=== PATIENT | male | born 1965 | race African-American/Black ===

== ENCOUNTER 2018-09-25 21:05 | Inpatient (IN) | payer MEDICARE, MEDICAID ==
--- NOTE | 2018-09-26 00:34 | ER Document Report ---
ED Medical Screen (RME) - General Chief Complaint: Abscess Stated Complaint: BOIL IN GROIN AREA Time Seen by Provider: 09/26/18 00:15 TRAVEL OUTSIDE OF THE [place] IN LAST 30 DAYS: No - HPI Notes: 09/26/18 00:29 53 year old male with history of morbid obesity, HTN, IDDM, HLD to the ED with C/O progressively worsening abscess to his right inner thigh for the past two weeks. He states that he went and saw his PCM about 6 days ago and was given Bactroban and Augmentin. He has been faithful with these medicines. He states yesterday the area started to drain a foul smelling brown discharge with blood. Despite the drainage, he states the area has still increased in size. He admits to fevers, chills, fatigue, malaise. He does not think that the abscess goes onto his scrotum or into his perineal region. States it is starting to go up the buttock but is not involving the rectum. Sugars have been in the upper 300s. I have performed a medical screening exam on this patient. He will require lab work and possibly further I and D and possible imaging. Given his tachycardia and his description of a purulent infection, have ordered blood cultures and lactic acid. Past Medical History - General Information source: Patient, Relative - Social History Frequency of alcohol use: None Drug Abuse: None Lives with: Spouse/Significant other Family history: DM, Hypertension Physical Exam - Vital signs Vitals: Temp Pulse Resp BP Pulse Ox 98.0 F 121 H 16 154/91 H 96 09/25/18 21:54 09/25/18 21:54 09/25/18 21:54 09/25/18 21:54 09/25/18 21:54 Interpretation: Tachycardic - General Notes: noted foul smell from patient -- he acknowledges the smell himself and states that this smell started when the area began to drain. - Respiratory Respiratory status: No respiratory distress Chest status: Nontender Breath sounds: Normal Chest palpation: Normal - Cardiovascular Rhythm: Regular Heart sounds: Normal auscultation Murmur: No - Skin Notes: patient will not allow me to look at area of abscess in PIT, because he states it is best seen when he is laying down. Course - Vital Signs Vital signs: Temp Pulse Resp BP Pulse Ox 98.0 F 121 H 16 154/91 H 96 09/25/18 21:54 09/25/18 21:54 09/25/18 21:54 09/25/18 21:54 09/25/18 21:54
--- NOTE | 2018-09-26 00:50 | ER Document Report ---
ED Skin Rash/Insect Bite/Abscs - General Chief Complaint: Abscess Stated Complaint: BOIL IN GROIN AREA Time Seen by Provider: 09/26/18 00:15 Primary Care Provider: ABELARDO SHAH MD [Primary Care Provider] - Follow up as needed Notes: This is a pleasant 53-year-old -[place] male to the emergency department chief complaint of abscess. Patient has been treating it with oral antibiotics as prescribed by his primary care doctor for about 2 weeks now. Continues to get worse. Significant amount of discomfort and pain in the right groin area. States that the abscesses on the inguinal area on the right side proximal thigh and extends down around the scrotum and then down to the buttock area on the right. Fever at home. Tachycardia. Blood sugars have been elevated. Patient is a diabetic. TRAVEL OUTSIDE OF THE [place] IN LAST 30 DAYS: No - HPI Patient complains to provider of: Skin rash/lesion, Tender/swollen area Onset/Duration: Gradual, Constant, Worse Quality of pain: Throbbing Severity: Moderate Pain Level: 4 Skin Character: Abscess, Drainage, Erythema, Tenderness Skin Temperature: Warm Quality of rash: Painful Similar symptoms previously: Yes - Related Data Allergies/Adverse Reactions: No Known Allergies Allergy (Unverified 09/26/18 01:55) Past Medical History - General Information source: Patient, Relative - Social History Smoking Status: Never Smoker Frequency of alcohol use: None Drug Abuse: None Lives with: Spouse/Significant other Family History: Reviewed & Not Pertinent - Past Medical History Cardiac Medical History: Reports: Hx Hypertension Endocrine Medical History: Reports: Hx Diabetes Mellitus Type 2 Review of Systems - Review of Systems Notes: Constitutional: denies: Chills, Diaphoresis,+ Fever, +Malaise,+ Weakness EENT: denies: Eye discharge, Blurred vision, Tearing, Double vision, Nose congestion, Nose discharge, Throat swelling, Mouth pain Cardiovascular: denies: Palpitations, Heart racing, Orthopnea, Dyspnea, Chest pain Respiratory: denies: Cough, Hurts to breathe, Wheezing, Shortness of breath Gastrointestinal: denies: Abdominal pain, Diarrhea, Nausea, Vomiting, Black stools, bright red blood in stool Genitourinary: denies: Burning, Dysuria, Discharge, Frequency, Flank pain, Hematuria Musculoskeletal: denies: Joint pain, Joint swelling, Muscle pain, Muscle stiffness, back pain Hematologic/Lymphatic: denies: Anemia, Easy bleeding, Easy bruising, Blood clots Neurological/Psychological: denies: Confusion, Dementia, Depression, Loss of consciousness Skin: No lesions, no masses, +skin breakdown, +abscesses.+ Malodorous discharge right inguinal/upper thigh area from abscess. Physical Exam - Vital signs Vitals: Temp Pulse Resp BP Pulse Ox 98.0 F 121 H 16 154/91 H 96 09/25/18 21:54 09/25/18 21:54 09/25/18 21:54 09/25/18 21:54 09/25/18 21:54 Interpretation: Tachycardic. No: Febrile - General General appearance: Appears well, Alert - HEENT Head: Normocephalic, Atraumatic Eyes: Normal Pupils: PERRL - Respiratory Respiratory status: No respiratory distress Chest status: Nontender Breath sounds: Normal Chest palpation: Normal - Cardiovascular Rhythm: Tachycardia Heart sounds: Normal auscultation Murmur: No - Abdominal Inspection: Normal Distension: No distension Bowel sounds: Normal Tenderness: Nontender Organomegaly: No organomegaly - Back Back: Normal, Nontender - Extremities General upper extremity: Normal inspection, Nontender, Normal color, Normal ROM, Normal temperature General lower extremity: Normal inspection, Nontender, Normal color, Normal ROM, Normal temperature, Normal weight bearing. No: Albertina's sign - Neurological Neuro grossly intact: Yes Cognition: Normal Orientation: AAOx4 [place] Coma Scale Eye Opening: Spontaneous Patricia Coma Scale Verbal: Oriented [place] Coma Scale Motor: Obeys Commands [place] Coma Scale Total: 15 Speech: Normal Motor strength normal: LUE, RUE, LLE, RLE Sensory: Normal - Psychological Associated symptoms: Normal affect, Normal mood - Skin Skin Temperature: Warm Skin Moisture: Dry Skin Color: Other - There is a small draining abscess area in the right inguinal area. Malodorous. Warm and tender to the touch. Right anterior medial thigh area extending down towards the buttock region. Does not appear to involve the scrotal area at all. Course - Re-evaluation Re-evalutation: 09/26/18 01:14 This is a 53-year-old obese, diabetic male with worsening abscess and drainage with tachycardia. Will start on IV antibiotics. Patient more likely will need to be admitted. More likely will require surgical consult. Will get CT scan at this time to better delineate where the abscess goes and whether or not there is extensive soft tissue involvement. Ordering vancomycin, Zosyn pain medication at this time. 09/26/18 04:17 Laboratory 09/26/18 09/26/18 09/26/18 01:21 01:25 01:25 WBC 10.6 H RBC 5.00 Hgb 12.7 L Hct 39.3 MCV 79 L MCH 25.3 L MCHC 32.2 RDW 14.8 H Plt Count 287 Total Counted 100 Seg Neutrophils % Not Reportable Seg Neuts % (Manual) 67 Band Neutrophils % 4 Lymphocytes % Not Reportable Lymphocytes % (Manual) 19 Monocytes % Not Reportable Monocytes % (Manual) 9 Eosinophils % Not Reportable Eosinophils % (Manual) 1 Basophils % Not Reportable Basophils % (Manual) 0 Absolute Neutrophils Not Reportable Abs Neuts (Manual) 7.5 Absolute Lymphocytes Not Reportable Abs Lymphs (Manual) 2.0 Absolute Monocytes Not Reportable Abs Monocytes (Manual) 1.0 Absolute Eosinophils Not Reportable Absolute Eos (Manual) 0.1 Absolute Basophils Not Reportable Abs Basophils (Manual) 0.0 Platelet Comment ADEQUATE RBC Morph Comment NORMO-CYTIC/CHROMIC Sodium Cancelled Potassium Cancelled Chloride Cancelled Carbon Dioxide Cancelled Anion Gap Cancelled BUN Cancelled Creatinine Cancelled Est GFR ( Amer) Cancelled Est GFR (Non-Af Amer) Cancelled Glucose Cancelled POC Glucose 334 H Lactic Acid Calcium Cancelled Total Bilirubin Cancelled Direct Bilirubin Cancelled Neonat Total Bilirubin Cancelled Neonat Direct Bilirubin Cancelled Neonat Indirect Bili Cancelled AST Cancelled ALT Cancelled Alkaline Phosphatase Cancelled Total Protein Cancelled Albumin Cancelled 09/26/18 09/26/18 01:25 01:55 WBC RBC Hgb Hct MCV MCH MCHC RDW Plt Count Total Counted Seg Neutrophils % Seg Neuts % (Manual) Band Neutrophils % Lymphocytes % Lymphocytes % (Manual) Monocytes % Monocytes % (Manual) Eosinophils % Eosinophils % (Manual) Basophils % Basophils % (Manual) Absolute Neutrophils Abs Neuts (Manual) Absolute Lymphocytes Abs Lymphs (Manual) Absolute Monocytes Abs Monocytes (Manual) Absolute Eosinophils Absolute Eos (Manual) Absolute Basophils Abs Basophils (Manual) Platelet Comment RBC Morph Comment Sodium 138.9 Potassium 5.0 Chloride 103 Carbon Dioxide 17 L Anion Gap 19 BUN 14 Creatinine 0.77 Est GFR ( Amer) > 60 Est GFR (Non-Af Amer) > 60 Glucose 381 H POC Glucose Lactic Acid 1.5 Calcium 9.4 Total Bilirubin 0.6 Direct Bilirubin 0.5 H Neonat Total Bilirubin Not Reportable Neonat Direct Bilirubin Not Reportable Neonat Indirect Bili Not Reportable AST 25 ALT 27 Alkaline Phosphatase 162 H Total Protein 7.8 Albumin 3.9 Consulted hospitalist for admission for cellulitis with surgical consult. He recommends a consult surgeon first. I have consulted with Dr. Castro with general surgery. He will see patient. Patient is receiving antibiotics, fluid and insulin at this time 09/26/18 05:24 At this time patient is turning the corner. We will continue to check the blood sugar. Dr. Castro will see shortly and likely admit. 09/26/18 05:45 09/26/18 05:45 Blood sugars coming down after insulin. Receiving fluids. Patient looking better. Anticipate admit shortly. - Vital Signs Vital signs: Temp Pulse Resp BP Pulse Ox 98.0 F 121 H 15 106/70 95 09/25/18 21:54 09/25/18 21:54 09/26/18 04:01 09/26/18 04:01 09/26/18 04:01 - Laboratory Result Diagrams: 09/26/18 01:25 09/26/18 01:55 Laboratory results interpreted by me: 09/26/18 09/26/18 09/26/18 01:21 01:25 01:55 WBC 10.6 H Hgb 12.7 L MCV 79 L MCH 25.3 L RDW 14.8 H Carbon Dioxide 17 L Glucose 381 H POC Glucose 334 H Direct Bilirubin 0.5 H Alkaline Phosphatase 162 H 09/26/18 04:40 WBC Hgb MCV MCH RDW Carbon Dioxide Glucose POC Glucose 382 H Direct Bilirubin Alkaline Phosphatase Discharge - Discharge Clinical Impression: Abscess of groin, right, Cellulitis of right leg Condition: Good Disposition: ADMITTED INPATIENT Admitting Provider: Surgicalist - [facility] Unit Admitted: Surgical Floor Referrals: ABELARDO SHAH MD [Primary Care Provider] - Follow up as needed
[2018-09-26] MEDS ORDERED: VANCOMYCIN HCL INJ 1000 MG VIAL IV ONE (01:06)
[2018-09-26] MEDS ORDERED: PIPERACILLIN/TAZOBACTAM 3.375 GM VIAL IV ONE (01:07)
[2018-09-26] MEDS ORDERED: KETOROLAC TROMETHAMINE INJ/PF 30 MG/1 ML SDV IV ONE (01:11)
[2018-09-26] MEDS ORDERED: ONDANSETRON 4 MG TAB.RAPDIS PO ONE (01:11)
[2018-09-26] MEDS ORDERED: OXYCODONE-ACETAMINOPHEN 5-325 MG TABLET PO ONE (01:11)
[2018-09-26 01:42] LABS: HEMATOCRIT 39.3 % (37.9-51.0); HEMOGLOBIN 12.7 g/dL (13.5-17.0); MEAN CORPUSCULAR HEMOGLOBIN 25.3 pg (27.0-33.4); MEAN CORPUSCULAR HGB CONC 32.2 g/dL (32.0-36.0); MEAN CORPUSCULAR VOLUME 79 fl (80-97); PLATELET COUNT 287 10^3/uL (150-450); RED CELL DISTRIBUTION WIDTH 14.8 % (11.5-14.0); WHITE BLOOD COUNT 10.6 10^3/uL (4.0-10.5)
[2018-09-26 02:06] LABS: BAND NEUTROPHILS % (MANUAL) 4 % (3-5); BASOPHILS % (MANUAL) 0 % (0-2); EOSINOPHILS % (MANUAL) 1 % (0-6); LYMPHOCYTES % (MANUAL) 19 % (13-45); MONOCYTES % (MANUAL) 9 % (3-13); PLATELET COMMENT ADEQUATE; RBC MORPHOLOGY COMMENT NORMO-CYTIC/CHROMIC; SEGMENTED NEUTROPHILS % (MAN) 67 % (42-78); TOTAL CELLS COUNTED 100
[2018-09-26 02:19] LABS: ALANINE AMINOTRANSFERASE 27 U/L (21-72); ALBUMIN 3.9 g/dL (3.5-5.0); ALKALINE PHOSPHATASE 162 U/L (38-126); ANION GAP 19 (5-19); ASPARTATE AMINO TRANSFERASE 25 U/L (17-59); BILIRUBIN,DIRECT 0.5 mg/dL (0.0-0.4); BILIRUBIN,TOTAL 0.6 mg/dL (0.2-1.3); BLOOD UREA NITROGEN 14 mg/dL (7-20); CALCIUM 9.4 mg/dL (8.4-10.2); CARBON DIOXIDE 17 mmol/L (22-30); CHLORIDE 103 mmol/L (98-107); GLUCOSE 381 mg/dL (75-110); SODIUM 138.9 mmol/L (137-145); TOTAL PROTEIN 7.8 g/dL (6.3-8.2)
--- NOTE | 2018-09-26 03:12 | RADIOLOGY REPORT (SQ) ---
CLINICAL HISTORY: Abscess right groin COMPARISON: None. TECHNIQUE: CT PELVIS WITH IV CONTRAST on 09/26/2018 1:05 AM CDT This exam was performed according to our departmental dose-optimization program, which includes automated exposure control, adjustment of the mA and/or kV according to patient size and/or use of iterative reconstruction technique. FINDINGS: There is no bowel obstruction. Urinary bladder is unremarkable. There is no free fluid. There is inflammation within the inferior medial right buttocks with subcutaneous air. There is no focal fluid collection. Skeleton: There are no acute osseous findings. No suspicious bony lesions. IMPRESSION: Cellulitis in the inferior right buttocks near the scrotum with subcutaneous air within the soft tissues.
[2018-09-26] MEDS ORDERED: INSULIN REG, HUMAN 100 UNIT/ML 3 ML VIAL (PYX) IV ONE ×2 (04:15→05:50)
[2018-09-26] MEDS ORDERED: NORMAL SALINE 1000 ML 1,000 ML IV ONE ×2 (04:15→05:51)
[2018-09-26] MEDS ORDERED: DEXTROSE 50%-WATER 25 GM/50 ML DISP.SYRIN IV PRN ×4 (06:01→06:07)
[2018-09-26] MEDS ORDERED: DEXTROSE 40% GEL 15 GM TUBE PO PRN ×4 (06:01→06:07)
[2018-09-26] MEDS ORDERED: GLUCAGON,HUMAN RECOMB 1 MG INJ SUBCUT PRN (06:01)
--- NOTE | 2018-09-26 06:01 | PDOC H&P ---
History of Present Illness Admission Date/PCP: 09/26/18 05:35 ABELARDO SHAH MD Patient complains of: Draining boil in the right upper inner thigh History of Present Illness: CAROLANN TOLLIVER is a 53 year old male Past Medical History Cardiac Medical History: Reports: Myocardial Infarction - Several years ago, Hypertension Pulmonary Medical History: Reports: None Endocrine Medical History: Reports: Diabetes Mellitus Type 2 Musculoskeltal Medical History: Reports: Arthritis Past Surgical History Past Surgical History: Reports: Tonsillectomy Social History Lives with: Spouse/Significant other Smoking Status: Never Smoker Frequency of Alcohol Use: Rare Hx Recreational Drug Use: No Family History Family History: Reviewed & Not Pertinent Parental Family History Reviewed: Yes - Alcoholism and drug abuse Children Family History Reviewed: Yes Sibling(s) Family History Reviewed.: Yes Medication/Allergy Allergies/Adverse Reactions: No Known Allergies Allergy (Unverified 09/26/18 01:55) Review of Systems All systems: reviewed and no additional remarkable complaints except as stated Constitutional: PRESENT: weight loss - About 30 pound weight loss since changing his diabetes medications Integumentary: PRESENT: as per HPI Physical Exam Vital Signs: Temp Pulse Resp BP Pulse Ox 98.0 F 121 H 15 106/70 95 09/25/18 21:54 09/25/18 21:54 09/26/18 04:01 09/26/18 04:01 09/26/18 04:01 Intake & Output 09/24/18 09/25/18 09/26/18 06:59 06:59 06:59 Intake Total 1000 Balance 1000 Weight 141.5 kg General appearance: PRESENT: no acute distress, cooperative, morbidly obese Eye exam: PRESENT: conjunctiva pink Neck exam: PRESENT: other - Supple with no masses and no tenderness Respiratory exam: PRESENT: clear to auscultation onofre Cardiovascular exam: PRESENT: RRR GI/Abdominal exam: PRESENT: other - Soft, nondistended, nontender to palpation. Gentrourinary exam: PRESENT: other - No scrotal erythema nor induration. Bilateral testicles are descended with no masses and no tenderness Extremities exam: PRESENT: other - Right upper inner thigh with about hand breath region of erythema, tenderness and induration with central fluctuance with a central opening draining seropurulent foul-smelling fluid. Neurological exam: PRESENT: alert, awake Psychiatric exam: PRESENT: appropriate affect Results Laboratory Results: 09/26/18 01:25 09/26/18 01:55 09/26/18 09/26/18 09/26/18 01:25 01:25 01:25 WBC 10.6 H RBC 5.00 Hgb 12.7 L Hct 39.3 MCV 79 L MCH 25.3 L MCHC 32.2 RDW 14.8 H Plt Count 287 Seg Neutrophils % Not Reportable Lymphocytes % Not Reportable Monocytes % Not Reportable Eosinophils % Not Reportable Basophils % Not Reportable Absolute Neutrophils Not Reportable Absolute Lymphocytes Not Reportable Absolute Monocytes Not Reportable Absolute Eosinophils Not Reportable Absolute Basophils Not Reportable Sodium Cancelled Potassium Cancelled Chloride Cancelled Carbon Dioxide Cancelled Anion Gap Cancelled BUN Cancelled Creatinine Cancelled Est GFR ( Amer) Cancelled Est GFR (Non-Af Amer) Cancelled Glucose Cancelled Lactic Acid 1.5 Calcium Cancelled Total Bilirubin Cancelled AST Cancelled ALT Cancelled Alkaline Phosphatase Cancelled Total Protein Cancelled Albumin Cancelled 09/26/18 01:55 WBC RBC Hgb Hct MCV MCH MCHC RDW Plt Count Seg Neutrophils % Lymphocytes % Monocytes % Eosinophils % Basophils % Absolute Neutrophils Absolute Lymphocytes Absolute Monocytes Absolute Eosinophils Absolute Basophils Sodium 138.9 Potassium 5.0 Chloride 103 Carbon Dioxide 17 L Anion Gap 19 BUN 14 Creatinine 0.77 Est GFR ( Amer) > 60 Est GFR (Non-Af Amer) > 60 Glucose 381 H Lactic Acid Calcium 9.4 Total Bilirubin 0.6 AST 25 ALT 27 Alkaline Phosphatase 162 H Total Protein 7.8 Albumin 3.9 09/26/18 01:55 Troponin I < 0.012 Impressions: Pelvis CT 09/26/18 01:05 IMPRESSION: Cellulitis in the inferior right buttocks near the scrotum with subcutaneous air within the soft tissues. Assessment & Plan - Diagnosis (1) Abscess of groin, right Is this a current diagnosis for this admission?: Yes Plan: Will start on antibiotics, IV fluid resuscitation, IV insulin. When he has been sufficiently resuscitated we will plan to take him to the operating room for a right inner upper thigh abscess debridement. I have explained to the patient the risk and benefits of the surgery including risk of poor wound healing, infection, bleeding, recurrence, cardiopulmonary risks. Patient understands and agrees to proceed.
[2018-09-26] MEDS ORDERED: GLUCAGON,HUMAN RECOMB 1 MG INJ IM PRN (06:07)
[2018-09-26] MEDS ORDERED: PIPERACILLIN SODIUM/TAZOBACTAM 3.375 GM in NORMAL SALINE 100 ML IV ONE (06:30)
[2018-09-26 07:45] LABS: ANION GAP 15 (5-19); BLOOD UREA NITROGEN 15 mg/dL (7-20); CALCIUM 8.9 mg/dL (8.4-10.2); CARBON DIOXIDE 19 mmol/L (22-30); CHLORIDE 106 mmol/L (98-107); GLUCOSE 182 mg/dL (75-110); POTASSIUM 4.3 mmol/L (3.6-5.0); SODIUM 139.7 mmol/L (137-145)
[2018-09-26] MEDS ORDERED: FENTANYL CITRATE INJ/PF 100 MCG/2 ML AMPUL ONE (07:50)
[2018-09-26] MEDS ORDERED: MIDAZOLAM 2 MG/2 ML INJ ONE (07:50)
[2018-09-26] MEDS ORDERED: ONDANSETRON HCL INJ/PF 4 MG/2 ML SDV ONE (07:50)
[2018-09-26] MEDS ORDERED: DEXAMETHASONE SOD PHOSPHATE INJ 4 MG/1 ML VIAL ONE (07:50)
[2018-09-26] MEDS ORDERED: PROPOFOL INJ 200 MG/20 ML VIAL IV ONE (07:51)
[2018-09-26] MEDS ORDERED: KETAMINE HCL INJ 500 MG/10 ML VIAL ONE (07:57)
[2018-09-26] MEDS ORDERED: BUPIVACAINE HCL 0.25 % INJ/PF (2.5 MG/1 ML) 30 ML VIAL ONE (07:59)
[2018-09-26] MEDS ORDERED: LIDOCAINE 0.5% INJ-PF (5 MG/ML) 50 ML SDV ONE (07:59)
[2018-09-26] MEDS: PIPERACILLIN SODIUM/TAZOBACTAM 3.375 GM in NORMAL SALINE 100 ML IV SCH ×3 (08:51→22:32)
[2018-09-26] MEDS ORDERED: FENTANYL CITRATE INJ/PF 100 MCG/2 ML AMPUL IV PRN ×3 (09:18)
[2018-09-26] MEDS ORDERED: PROMETHAZINE HCL INJ 25 MG/1 ML VIAL IV PRN ×2 (09:18)
[2018-09-26] MEDS ORDERED: MEPERIDINE HCL/PF INJ 25 MG/1 ML DISP.SYRIN IV PRN (09:18)
[2018-09-26] MEDS ORDERED: MORPHINE SULFATE 10 MG/ML INJ IV PRN (09:18)
[2018-09-26] MEDS ORDERED: ONDANSETRON HCL INJ/PF 4 MG/2 ML SDV IV PRN (09:18)
[2018-09-26] MEDS ORDERED: DIPHENHYDRAMINE HCL 50 MG/ML VIAL IV PRN (09:18)
--- NOTE | 2018-09-26 09:57 | Operative Report ---
Operative Report DATE OF SURGERY: 09/26/18 PREOPERATIVE DIAGNOSIS: Diabetic right proximal thigh abscess POSTOPERATIVE DIAGNOSIS: Large proximal right upper thigh abscess and diabetic with necrotic subcutaneous tissue OPERATION: 1. Debridement of skin, subcutaneous tissue and superficial fascia of the right proximal groin. 2. Counterincisions x2 with [place] loop drain placement. SURGEON: SUSANA TORRES ANESTHESIA: GA TISSUE REMOVED OR ALTERED: Skin, subcutaneous tissue COMPLICATIONS: None ESTIMATED BLOOD LOSS: 30 cc INTRAOPERATIVE FINDINGS: See below PROCEDURE: Patient moved from the preop holding area to the main operating room where general anesthesia was induced. Legs were leg, and the right groin and proximal thigh prepped and draped sterile fashion. Surgical plan and surgical timeout were conducted. Using a #10 blade, a large elliptical excision of skin was then removed from the right proximal thigh approximately 4 x 8 cm. We immediately got into woody, thickened, subcutaneous tissue. Multiple, extensive loculations were broken up in a circumferential fashion extending up to the inguinal ligament cephalad, caudad for several centimeters, medially for approximately 18 cm and laterally for approximately 15 cm. 2 counterincisions were made one in the proximal lateral thigh and one in the medial thigh. Large [place] drains were placed in a loop fashion and tied in knots. We now spent approximately 15 minutes excisionally debriding chunks of subcutaneous tissue with electrocautery. Approximately 8 g of tissue were removed. This was performed using a ferrous [place] pickups, and and electrocautery set at medium heat strength. Wound was irrigated out multiple times with saline. Superficial bleeders were cauterized as encountered. The greater saphenous vein was not encountered during the excisional debridement. Wound packed with to complete moist Kerlix gauzes and dry dressings applied. Patient tolerated the procedure well, extubated, taken recovery in stable condition.
--- NOTE | 2018-09-26 10:01 | PDOC PROGRESS REPORT ---
Subjective Progress Note for:: 09/26/18 Subjective:: Patient right groin and proximal thigh Reason For Visit: RIGHT THIGH ABSCESS Physical Exam Vital Signs: Temp Pulse Resp BP Pulse Ox 97.6 F 93 19 120/68 96 09/26/18 08:28 09/26/18 08:28 09/26/18 08:28 09/26/18 08:22 09/26/18 08:28 Intake & Output 09/25/18 09/26/18 09/27/18 06:59 06:59 06:59 Intake Total 1000 Balance 1000 Weight 141.5 kg General appearance: PRESENT: mild distress Musculoskeletal exam: PRESENT: other - Actively draining purulent material proximal thigh, surrounding erythema induration and tenderness. Results Laboratory Results: 09/26/18 01:25 09/26/18 07:00 09/26/18 09/26/18 09/26/18 01:25 01:25 01:25 WBC 10.6 H RBC 5.00 Hgb 12.7 L Hct 39.3 MCV 79 L MCH 25.3 L MCHC 32.2 RDW 14.8 H Plt Count 287 Seg Neutrophils % Not Reportable Lymphocytes % Not Reportable Monocytes % Not Reportable Eosinophils % Not Reportable Basophils % Not Reportable Absolute Neutrophils Not Reportable Absolute Lymphocytes Not Reportable Absolute Monocytes Not Reportable Absolute Eosinophils Not Reportable Absolute Basophils Not Reportable Sodium Cancelled Potassium Cancelled Chloride Cancelled Carbon Dioxide Cancelled Anion Gap Cancelled BUN Cancelled Creatinine Cancelled Est GFR ( Amer) Cancelled Est GFR (Non-Af Amer) Cancelled Glucose Cancelled Lactic Acid 1.5 Calcium Cancelled Total Bilirubin Cancelled AST Cancelled ALT Cancelled Alkaline Phosphatase Cancelled Total Protein Cancelled Albumin Cancelled 09/26/18 09/26/18 01:55 07:00 WBC RBC Hgb Hct MCV MCH MCHC RDW Plt Count Seg Neutrophils % Lymphocytes % Monocytes % Eosinophils % Basophils % Absolute Neutrophils Absolute Lymphocytes Absolute Monocytes Absolute Eosinophils Absolute Basophils Sodium 138.9 139.7 Potassium 5.0 4.3 Chloride 103 106 Carbon Dioxide 17 L 19 L Anion Gap 19 15 BUN 14 15 Creatinine 0.77 0.66 Est GFR ( Amer) > 60 > 60 Est GFR (Non-Af Amer) > 60 > 60 Glucose 381 H 182 H Lactic Acid Calcium 9.4 8.9 Total Bilirubin 0.6 AST 25 ALT 27 Alkaline Phosphatase 162 H Total Protein 7.8 Albumin 3.9 09/26/18 01:55 Troponin I < 0.012 Impressions: Pelvis CT 09/26/18 01:05 IMPRESSION: Cellulitis in the inferior right buttocks near the scrotum with subcutaneous air within the soft tissues. Assessment & Plan - Diagnosis (1) Abscess of groin, right Is this a current diagnosis for this admission?: Yes Plan: Impression: Right proximal thigh abscess below the right groin, and diabetic with hyperglycemia. Recommendations: 1. Agree with plans for excisional debridement, possible counterincision right proximal thigh this morning, under general anesthesia. The technical aspects of the planned procedure, as well as expected outcome were discussed with patient and significant other. 2. He expresses understanding and agrees to proceed.
[2018-09-26] MEDS: ENOXAPARIN SODIUM INJ 40 MG/0.4 ML DISP.SYRIN SUBCUT SCH (11:13)
[2018-09-26] MEDS ORDERED: PIPERACILLIN SODIUM/TAZOBACTAM 3.375 GM in NORMAL SALINE 100 ML IV SCH (12:00)
[2018-09-26] MEDS: KETOROLAC TROMETHAMINE INJ/PF 30 MG/1 ML SDV IV PRN ×2 (12:09→22:31)
[2018-09-26] MEDS ORDERED: SUCCINYLCHOLINE CHLORIDE INJ 200 MG/10 ML VIAL ONE (14:13)
[2018-09-26] MEDS: INSULIN REG, HUMAN 100 UNIT/ML 3 ML VIAL (PYX) SUBCUT SCH ×3 (14:51→22:32)
--- NOTE | 2018-09-26 22:38 | EKG REPORT ---
SEVERITY:- BORDERLINE ECG - SINUS RHYTHM BORDERLINE ST ELEVATION, INFERIOR LEADS : Confirmed by: Hedy Arizmendi MD 26-Sep-2018 22:38:29
[2018-09-27] MEDS: PIPERACILLIN SODIUM/TAZOBACTAM 3.375 GM in NORMAL SALINE 100 ML IV SCH ×4 (02:43→22:04)
[2018-09-27] MEDS: KETOROLAC TROMETHAMINE INJ/PF 30 MG/1 ML SDV IV PRN ×3 (07:42→22:07)
[2018-09-27] MEDS: INSULIN REG, HUMAN 100 UNIT/ML 3 ML VIAL (PYX) SUBCUT SCH ×4 (07:43→22:03)
[2018-09-27] MEDS: BENAZEPRIL HCL 20 MG TABLET PO SCH (09:39)
[2018-09-27] MEDS: GABAPENTIN 300 MG CAPSULE PO SCH (09:45)
[2018-09-27] MEDS: ENOXAPARIN SODIUM INJ 40 MG/0.4 ML DISP.SYRIN SUBCUT SCH (09:45)
[2018-09-27] MEDS: HUM INSULIN NPH/REG INSULIN HM 100 UNIT/1 ML 3 ML SUBCUT SCH ×2 (09:45→18:25)
--- NOTE | 2018-09-27 10:43 | PDOC PROGRESS REPORT ---
Subjective Progress Note for:: 09/27/18 Reason For Visit: RIGHT THIGH ABSCESS Physical Exam Vital Signs: Temp Pulse Resp BP Pulse Ox 99.0 F 89 18 116/73 93 09/27/18 07:49 09/27/18 07:49 09/27/18 07:49 09/27/18 07:49 09/27/18 07:49 Intake & Output 09/26/18 09/27/18 09/28/18 06:59 06:59 06:59 Intake Total 1000 3090 Output Total 1125 Balance 1000 1965 Weight 141.5 kg 150.5 kg General appearance: PRESENT: no acute distress Head exam: PRESENT: normocephalic Eye exam: PRESENT: EOMI Ear exam: PRESENT: normal external ear exam Mouth exam: PRESENT: moist Neck exam: PRESENT: full ROM Respiratory exam: PRESENT: clear to auscultation onofre Cardiovascular exam: PRESENT: RRR Pulses: PRESENT: +2 pedal pulses bilateral Vascular exam: PRESENT: normal capillary refill GI/Abdominal exam: PRESENT: soft Rectal exam: PRESENT: deferred Extremities exam: PRESENT: full ROM, other - Right groin wound has been packed with a saline soaked Kerlix gauze. Gauze has been removed and the Cecilia drain is in place the Alyson of the wound look clean but there is still some surface necrosis Musculoskeletal exam: PRESENT: full ROM Neurological exam: PRESENT: alert, awake, oriented to person Skin exam: PRESENT: dry Results Laboratory Results: 09/26/18 01:25 09/26/18 07:00 09/26/18 01:55 Troponin I < 0.012 Impressions: Pelvis CT 09/26/18 01:05 IMPRESSION: Cellulitis in the inferior right buttocks near the scrotum with subcutaneous air within the soft tissues. Assessment & Plan - Plan Summary Plan Summary: Impression is right groin abscess status post incision and drainage packing has been changed We will continue dressing changes for the time being
--- NOTE | 2018-09-27 17:26 | PDOC CONSULTATION ---
Consultation Consult Date: 09/27/18 Attending physician:: SUSANA TORRES Provider Consulted: INDIRA PRIDE Consult reason:: Diabetes regiment in setting of abscess History of Present Illness Admission Date/PCP: 09/26/18 05:35 ABELARDO SHAH MD Patient complains of: Right thigh draining wound History of Present Illness: CAROLANN TOLLIVER is a 53 year old man with difficult to control type II, insulin- dependent diabetes. He was admitted to the orthopedic service with a right upper inner thigh abscess which has now been drained. He is on multiple medications for diabetes and the hospitalist has been consulted for assistance with diabetes management given this complication, the abscess. Patient and I went over his diabetes medication regimen extensively, in detail. He is currently feeling better, after I&D of the abscess. He is now eating okay. He tells me that his blood glucose is usually high, around 300, every morning. He tells me that typically he ranges from about 1 50-300 over the course of a day. He takes his medications as prescribed. He states he has lost difficult amount of weight, going from 452 about 300 pounds over the past year. His hope is to lose a sufficient amount of weight to improve his diabetes and hypertension and health overall. Past Medical History Cardiac Medical History: Reports: Myocardial Infarction - Several years ago, Hypertension Pulmonary Medical History: Reports: None Endocrine Medical History: Reports: Diabetes Mellitus Type 2 Endocrine History Note: morbid obesity Musculoskeltal Medical History: Reports: Arthritis Psychiatric Medical History: Reports: Depression Traumatic Medical History: Denies: Traumatic Brain Injury Hematology: Denies: Bleeding Tendencies Infectious Medical History: Reports: Methicillin-Resistant Staph Aureus Past Surgical History Past Surgical History: Reports: Tonsillectomy, Other - I&D of right thigh abscess Social History Information Source: Patient, [facility] Records Lives with: Spouse/Significant other Smoking Status: Never Smoker Frequency of Alcohol Use: Rare Hx Recreational Drug Use: No Hx Prescription Drug Abuse: No - Advance Directive Resuscitation Status: Full Code Family History Family History: Reviewed & Not Pertinent Parental Family History Reviewed: No Children Family History Reviewed: No Sibling(s) Family History Reviewed.: No Medication/Allergy Home Medications: Amlodipine Besylate [Norvasc 10 mg Tablet] 10 mg PO DAILY 09/26/18 Benazepril HCl [Lotensin 20 mg Tablet] 20 mg PO DAILY 09/26/18 Dapagliflozin Propanediol [Farxiga] 10 mg PO QAM 09/26/18 Exenatide Microspheres [Bydureon Pen] 2 mg SQ MO@1000 09/26/18 Gabapentin [Neurontin 300 mg Capsule] 300 mg PO DAILY 09/26/18 Insulin Aspart Prot/Insuln Asp [Novolog Mix 70-30 Flexpen Syrn] 0 units SQ .SLIDING SCALE 09/26/18 Insulin Degludec [Tresiba Flextouch U-100] 50 units SQ BIDACBS 09/26/18 Pioglitazone HCl [Actos] 30 mg PO DAILY 09/26/18 Allergies/Adverse Reactions: No Known Allergies Allergy (Unverified 09/26/18 01:55) Review of Systems Constitutional: ABSENT: chills, fever(s) Eyes: ABSENT: visual disturbances Ears: ABSENT: hearing changes Nose, Mouth, and Throat: ABSENT: mouth pain, sore throat Cardiovascular: ABSENT: edema, orthropnea Respiratory: ABSENT: dyspnea Gastrointestinal: ABSENT: abdominal pain, constipation, nausea, vomiting Genitourinary: ABSENT: difficulty urinating, hematuria Musculoskeletal: ABSENT: deformity, muscle weakness Integumentary: PRESENT: lesions, wounds Neurological: PRESENT: numbness. ABSENT: abnormal gait, frequent falls Psychiatric: PRESENT: depression. ABSENT: anxiety Physical Exam Vital Signs: Temp Pulse Resp BP Pulse Ox 98.2 F 89 18 143/89 H 97 09/27/18 15:07 09/27/18 15:07 09/27/18 15:07 09/27/18 15:07 09/27/18 15:07 Intake & Output 09/26/18 09/27/18 09/28/18 06:59 06:59 06:59 Intake Total 1000 3090 200 Output Total 1125 Balance 1000 1965 200 Weight 141.5 kg 150.5 kg General appearance: PRESENT: no acute distress, cooperative, morbidly obese Head exam: PRESENT: atraumatic, normocephalic Eye exam: PRESENT: EOMI. ABSENT: conjunctival injection, scleral icterus Mouth exam: PRESENT: moist, neck supple, tongue midline Neck exam: ABSENT: lymphadenopathy, tracheostomy Respiratory exam: PRESENT: clear to auscultation onofre, unlabored. ABSENT: rales, rhonchi, wheezes Cardiovascular exam: PRESENT: RRR Pulses: PRESENT: normal radial pulses Vascular exam: PRESENT: normal capillary refill GI/Abdominal exam: PRESENT: normal bowel sounds, soft. ABSENT: distended, firm, guarding Rectal exam: PRESENT: deferred Gentrourinary exam: ABSENT: indwelling catheter Extremities exam: ABSENT: pedal edema, tenderness Musculoskeletal exam: PRESENT: normal inspection. ABSENT: deformity Neurological exam: PRESENT: alert, awake, oriented to person, oriented to place, oriented to situation, CN II-XII grossly intact Psychiatric exam: PRESENT: appropriate affect. ABSENT: anxious Skin exam: PRESENT: dry, normal color, other - Right upper inner thigh with postoperative dressing in place, wet with serosanguineous fluid, no significant surrounding skin changes Results Laboratory Results: 09/26/18 01:25 09/26/18 07:00 09/26/18 01:55 Troponin I < 0.012 Impressions: Pelvis CT 09/26/18 01:05 IMPRESSION: Cellulitis in the inferior right buttocks near the scrotum with subcutaneous air within the soft tissues. Assessment and Plan - Diagnosis (1) Abscess of right thigh Is this a current diagnosis for this admission?: Yes Plan: Patient has been to the OR with orthopedic surgery. They are following his wound. First postop dressing change was today. (2) Type 2 diabetes, uncontrolled, with neuropathy Is this a current diagnosis for this admission?: Yes Plan: The patient's blood glucose has not been well controlled. He is taking 70/30 insulin twice a day, varying doses. He also takes Actos and farxiga. He takes another weekly insulin injection, he does not know the name. I have started him on 70/30 insulin twice daily, half his regular dose. I will continue the sliding scale insulin before meals and at bedtime with regular insulin as started by the web application dev specialist. Will monitor closely and make changes as indicated. I started patient's gabapentin at 300 mg daily. Continue diabetic and cardiac diet. (3) Obesity Qualifiers: Obesity type: due to excess calories Is this a current diagnosis for this admission?: Yes Plan: Last year patient weighed 450 pounds. He is about 300 pounds now. He is actively attempting to lose weight to improve his health. (4) Hypertension Is this a current diagnosis for this admission?: Yes Plan: Patient's blood pressure was normal this morning without having taken any of his home meds. He is on amlodipine 10 mg daily and benazepril 20 mg daily. I started the benazepril with holding parameters systolic blood pressure less than 130. - Time Time Spent with patient: 35 or more minutes Medications reviewed and adjusted accordingly: Yes - Inpatient Certification Based on my medical assessment, after consideration of the patient's comorbidities, presenting symptoms, or acuity I expect that the services needed warrant INPATIENT care.: Yes I certify that my determination is in accordance with my understanding of Medicare's requirements for reasonable and necessary INPATIENT services [42 CFR 412.3e].: Yes Medical Necessity: Significant Comorbidiites Make Outpatient Treatment Too Risky, Need Close Monitoring Due to Risk of Patient Decompensation
[2018-09-27] MEDS ORDERED: HUM INSULIN NPH/REG INSULIN HM 100 UNIT/1 ML 3 ML SUBCUT ONE (18:00)
[2018-09-28] MEDS: PIPERACILLIN SODIUM/TAZOBACTAM 3.375 GM in NORMAL SALINE 100 ML IV SCH ×2 (03:02→09:32)
[2018-09-28] MEDS: KETOROLAC TROMETHAMINE INJ/PF 30 MG/1 ML SDV IV PRN (04:08)
[2018-09-28] MEDS ORDERED: HUM INSULIN NPH/REG INSULIN HM 100 UNIT/1 ML 3 ML SUBCUT SCH (08:00)
[2018-09-28 08:18] VITALS: BP 117/80
[2018-09-28] MEDS: INSULIN REG, HUMAN 100 UNIT/ML 3 ML VIAL (PYX) SUBCUT SCH (08:24)
[2018-09-28 08:58] LABS: ANION GAP 9 (5-19); BLOOD UREA NITROGEN 14 mg/dL (7-20); CALCIUM 8.3 mg/dL (8.4-10.2); CARBON DIOXIDE 24 mmol/L (22-30); CHLORIDE 103 mmol/L (98-107); GLUCOSE 379 mg/dL (75-110); POTASSIUM 4.3 mmol/L (3.6-5.0); SODIUM 135.6 mmol/L (137-145)
[2018-09-28] MEDS: GABAPENTIN 300 MG CAPSULE PO SCH (09:32)
[2018-09-28] MEDS: ENOXAPARIN SODIUM INJ 40 MG/0.4 ML DISP.SYRIN SUBCUT SCH (09:32)
[2018-09-28] MEDS: BENAZEPRIL HCL 20 MG TABLET PO SCH (09:33)
--- NOTE | 2018-09-28 09:38 | PDOC PROGRESS REPORT ---
Subjective Progress Note for:: 09/28/18 Subjective:: No complaints of pain Reason For Visit: RIGHT THIGH ABSCESS Physical Exam Vital Signs: Temp Pulse Resp BP Pulse Ox 97.7 F 84 18 117/80 98 09/28/18 07:58 09/28/18 07:58 09/28/18 07:58 09/28/18 07:58 09/28/18 07:58 Intake & Output 09/27/18 09/28/18 09/29/18 06:59 06:59 06:59 Intake Total 3090 1875 Output Total 1125 Balance 1965 1875 Weight 150.5 kg 150 kg General appearance: PRESENT: no acute distress Eye exam: PRESENT: EOMI Mouth exam: PRESENT: moist Neck exam: PRESENT: full ROM Respiratory exam: PRESENT: clear to auscultation onofre Cardiovascular exam: PRESENT: RRR Pulses: PRESENT: normal radial pulses, normal femoral pulses GI/Abdominal exam: PRESENT: soft Rectal exam: PRESENT: deferred Extremities exam: PRESENT: other - Patient's right thigh abscess and examined th e packing has been removed the bed of the wound has good granulation tissue without areas of necrosis the Cecilia drains are in place Musculoskeletal exam: PRESENT: full ROM Neurological exam: PRESENT: alert, awake, oriented to person, oriented to place Psychiatric exam: PRESENT: appropriate affect Skin exam: PRESENT: dry Results Laboratory Results: 09/26/18 01:25 09/28/18 08:29 09/28/18 08:29 Sodium 135.6 L Potassium 4.3 Chloride 103 Carbon Dioxide 24 Anion Gap 9 BUN 14 Creatinine 0.66 Est GFR ( Amer) > 60 Est GFR (Non-Af Amer) > 60 Glucose 379 H Calcium 8.3 L 09/26/18 01:55 Troponin I < 0.012 Impressions: Pelvis CT 09/26/18 01:05 IMPRESSION: Cellulitis in the inferior right buttocks near the scrotum with subcutaneous air within the soft tissues. Assessment & Plan - Diagnosis (1) Abscess of groin, right Is this a current diagnosis for this admission?: Yes - Time Time Spent with patient: 25-34 minutes Anticipated discharge: Home Within: within 24 hours Disposition: Home - Plan Summary Plan Summary: His wound is clean at this point with good granulation tissue the is at bedside she understands how to do the packing he can be discharged from surgical standpoint
--- NOTE | 2018-09-28 09:49 | PDOC DISCHARGE SUMMARY ---
General - Admit/Disc Date/PCP Admission Date/Primary Care Provider: 09/26/18 05:35 ABELARDO SHAH MD Discharge Date: 09/28/18 - Discharge Diagnosis (1) Abscess of groin, right Is this a current diagnosis for this admission?: Yes - Additional Information Resuscitation Status: Full Code Discharge Diet: As Tolerated Discharge Activity: Activity As Tolerated Home Medications: Amlodipine Besylate [Norvasc 10 mg Tablet] 10 mg PO DAILY 09/26/18 Benazepril HCl [Lotensin 20 mg Tablet] 20 mg PO DAILY 09/26/18 Dapagliflozin Propanediol [Farxiga] 10 mg PO QAM 09/26/18 Exenatide Microspheres [Bydureon Pen] 2 mg SQ MO@1000 09/26/18 Gabapentin [Neurontin 300 mg Capsule] 300 mg PO DAILY 09/26/18 Insulin Aspart Prot/Insuln Asp [Novolog Mix 70-30 Flexpen Syrn] 0 units SQ .SLIDING SCALE 09/26/18 Insulin Degludec [Tresiba Flextouch U-100] 50 units SQ BIDACBS 09/26/18 Pioglitazone HCl [Actos] 30 mg PO DAILY 09/26/18 History of Present Illness History of Present Illness: CAROLANN TOLLIVER is a 53 year old male Hospital Course Hospital Course: 53-year-old diabetic male who was admitted to the hospital on 08/16/2018 for pain in the right groin he was noted to have a large abscess in his right groin. He was taken to the operating room where he went underwent a surgical incision and drainage of his right groin abscess with placement of Cecilia drains and wound packing. The following 2 days he was maintained on IV antibiotics and dressing changes to the right groin over the course of the 2-day hospital stay his pain in the right groin had subsided and the wound began granulating with clean granulation base At this time he is afebrile stable vital signs he is tolerating a regular diet the wound is being packed with a saline soaked gauze sponge and the family has been given instructions for that Has an indwelling Cecilia drain in the abscess itself and that will be managed as an outpatient He is stable for discharge home he is been instructed to use a hand-held shower to irrigate the wound at least twice daily and continue the dressing changes as taught to the . Physical Exam Vital Signs: Temp Pulse Resp BP Pulse Ox 97.7 F 84 18 117/80 98 09/28/18 07:58 09/28/18 07:58 09/28/18 07:58 09/28/18 07:58 09/28/18 07:58 Intake & Output 09/27/18 09/28/18 09/29/18 06:59 06:59 06:59 Intake Total 3090 1875 Output Total 1125 Balance 1965 1874 Weight 150.5 kg 150 kg General appearance: PRESENT: no acute distress Head exam: PRESENT: normocephalic Eye exam: PRESENT: EOMI Ear exam: PRESENT: TM's normal bilaterally Mouth exam: PRESENT: moist Neck exam: PRESENT: full ROM Respiratory exam: PRESENT: clear to auscultation onofre Cardiovascular exam: PRESENT: RRR Pulses: PRESENT: normal radial pulses, normal femoral pulses GI/Abdominal exam: PRESENT: soft Rectal exam: PRESENT: deferred Extremities exam: PRESENT: other - Right groin abscess, with good granulation at the base cecilia drain in place. Psychiatric exam: PRESENT: appropriate affect Skin exam: PRESENT: dry Results Laboratory Results: 09/26/18 01:25 09/28/18 08:29 09/28/18 08:29 Sodium 135.6 L Potassium 4.3 Chloride 103 Carbon Dioxide 24 Anion Gap 9 BUN 14 Creatinine 0.66 Est GFR ( Amer) > 60 Est GFR (Non-Af Amer) > 60 Glucose 379 H Calcium 8.3 L 09/26/18 01:55 Troponin I < 0.012 Impressions: Pelvis CT 09/26/18 01:05 IMPRESSION: Cellulitis in the inferior right buttocks near the scrotum with subcutaneous air within the soft tissues. Qualifiers - * PATIENT BEING DISCHARGED WITH ANY OF THE FOLLOWING DIAGNOSIS: No Acute Heart Failure - Is this a Heart Failure Patient?: No
--- NOTE | 2018-09-28 14:45 | PDOC PROGRESS REPORT ---
Subjective Progress Note for:: 09/28/18 Subjective:: Patient feels very well today. His blood sugar has been mostly under 300. No chest pain or difficulty breathing. He is eating and drinking well. No nausea or vomiting. BPs have been normal off of his home meds. Dressing changed today by surgeon. Reason For Visit: RIGHT THIGH ABSCESS Physical Exam Vital Signs: Temp Pulse Resp BP Pulse Ox 97.7 F 84 18 117/80 98 09/28/18 11:00 09/28/18 11:00 09/28/18 11:00 09/28/18 07:58 09/28/18 11:00 Intake & Output 09/27/18 09/28/18 09/29/18 06:59 06:59 06:59 Intake Total 3090 1875 Output Total 1125 Balance 1965 1874 Weight 150.5 kg 150 kg General appearance: PRESENT: no acute distress, obese Head exam: PRESENT: atraumatic, normocephalic Eye exam: ABSENT: conjunctival injection, scleral icterus Ear exam: PRESENT: normal external ear exam Mouth exam: PRESENT: moist, neck supple, tongue midline Neck exam: ABSENT: tracheostomy Respiratory exam: PRESENT: clear to auscultation onofre, unlabored. ABSENT: rhonchi, wheezes Cardiovascular exam: PRESENT: RRR. ABSENT: systolic murmur Pulses: PRESENT: normal radial pulses GI/Abdominal exam: PRESENT: normal bowel sounds, soft. ABSENT: distended, tenderness Rectal exam: PRESENT: deferred Gentrourinary exam: ABSENT: indwelling catheter Extremities exam: ABSENT: pedal edema Neurological exam: PRESENT: alert, awake, oriented to person, oriented to place, oriented to situation, CN II-XII grossly intact Psychiatric exam: PRESENT: appropriate affect. ABSENT: anxious Skin exam: PRESENT: dry, warm, other - right upper inner thigh with clean post op dressing after abscess I and D Results Laboratory Results: 09/26/18 01:25 09/28/18 08:29 09/28/18 08:29 Sodium 135.6 L Potassium 4.3 Chloride 103 Carbon Dioxide 24 Anion Gap 9 BUN 14 Creatinine 0.66 Est GFR ( Amer) > 60 Est GFR (Non-Af Amer) > 60 Glucose 379 H Calcium 8.3 L 09/26/18 01:55 Troponin I < 0.012 Impressions: Pelvis CT 09/26/18 01:05 IMPRESSION: Cellulitis in the inferior right buttocks near the scrotum with subcutaneous air within the soft tissues. Assessment and Plan - Diagnosis (1) Abscess of right thigh Is this a current diagnosis for this admission?: Yes Plan: doing well from this perspective, the surgeon is primary service and will DC him today with wound care and followup plan in place. (2) Type 2 diabetes, uncontrolled, with neuropathy Is this a current diagnosis for this admission?: Yes Plan: Pt will be DCed with the plan to restart all of his home meds for diabetes. His glucose ran a bit high here but he was not on all of his home meds, including orals and an injectable that we do not carry. He and spouse feel comfortable restarting all his home DM meds at this time. WIll cont gabapentin at home. He knows to return to medical care with concerning symptoms. (3) Obesity Qualifiers: Obesity type: due to excess calories Is this a current diagnosis for this admission?: Yes Plan: he will cont to work on his weight loss plan as documented in yesterdays note. (4) Hypertension Is this a current diagnosis for this admission?: Yes Plan: BP has been in normal range off of home meds. i have asked him to hold the amlodipine and the benazepril until he sees his doctor in the next 1-2 days. he will likely need to retart a low dose ENID for renal protection. - Time Time Spent with patient: 15-24 minutes Anticipated discharge: Home - Inpatient Certification Post Hospital Care: Other - DC today per surgeon
== END 2018-09-28 11:33 | disposition home or self-care (01) | DRG 572 ==
LOC: ER 21:05 → EH 09-26 05:35 → 3W 09-26 08:12
PROVIDERS: ADMIT Surgery; ATTEND Surgery
PROC: 0JBL0ZZ Excision of Right Upper Leg Subcutaneous Tissue and Fascia, Open Approach (ICD-10-PCS; principal; 2018-09-26 09:00)
DX: L02.415 Cutaneous abscess of right lower limb (principal); I10 Essential (primary) hypertension; E66.01 Morbid (severe) obesity due to excess calories; E11.40 Type 2 diabetes mellitus with diabetic neuropathy, unspecified; F32.9 Major depressive disorder, single episode, unspecified; I25.2 Old myocardial infarction; Z79.4 Long term (current) use of insulin; Z79.899 Other long term (current) drug therapy; Z86.14 Personal history of Methicillin resistant Staphylococcus aureus infection
CPT/HCPCS: 36415; 400; 72193; 80048; 80053; 82962; 83605; 84484; 85025; 87040; 87070; 87075; 87077; 87205; 93005; 93010; 96365; 96366; 96367; 96375; 99285; J0330; J1100; J1650; J1815; J1885; J2250; J2405; J2543; J2704; J3010; J3370; J3490; J7030; J7050; S0119

== ENCOUNTER 2019-12-25 15:24 | Inpatient (IN) | payer MEDICARE ==
[~2019-12-25 15:24] MED LIST: EPINEPHRINE INJ 1 MG/10 ML DISP.SYRIN ONE; SODIUM BICARBONATE 8.4% INJ 50 MEQ/50 ML DISP.SYRIN ONE
[2019-12-25] MEDS ORDERED: DEXAMETHASONE SOD PHOS INJ 10 MG/1 ML VIAL IV ONE (15:40)
--- NOTE | 2019-12-25 15:41 | ER Document Report ---
ED Respiratory Problem - General Stated Complaint: DIFFICULTY BREATHING Time Seen by Provider: 12/25/19 15:36 TRAVEL OUTSIDE OF THE [place] IN LAST 30 DAYS: No - HPI Patient complains to provider of: Short of breath Onset: Last week Duration: Worse/persistent Notes: Patient is a 54-year-old male with a past medical history of diabetes who presents with shortness of breath. Patient states he tested positive for COVID at [place] 1 week ago. He was sent home with a medication but he is unsure of what it is. Patient states his shortness of breath is worsening. He denies any headaches or nausea. He states he had diarrhea last week but this has res olved. He denies any abdominal pain. EMS arrived at his house because he became very weak with ambulating. He arrived with a nonrebreather mask. Nonrebreather mask was removed and patient's O2 saturations dropped to 68%. Further history is limited as patient is being placed on BiPAP. - Related Data Allergies/Adverse Reactions: No Known Allergies Allergy (Unverified 09/26/18 01:55) Past Medical History - General Information source: Patient - Social History Smoking Status: Unknown if Ever Smoked Family History: Reviewed & Not Pertinent - Past Medical History Cardiac Medical History: Reports: Hx Heart Attack - Several years ago, Hx Hypertension Endocrine Medical History: Reports: Hx Diabetes Mellitus Type 2 Renal/ Medical History: Denies: Hx Peritoneal Dialysis Musculoskeletal Medical History: Reports Hx Arthritis Psychiatric Medical History: Reports: Hx Depression Traumatic Medical History: Denies: Hx Traumatic Brain Injury Infectious Medical History: Reports: Hx MRSA Past Surgical History: Reports: Hx Tonsillectomy, Other - I&D of right thigh abscess Review of Systems - Review of Systems Notes: CONSTITUTIONAL: No fever, fatigue or weight loss. SKIN: No rash. HENT: No congestion, ear pain, or sore throat. EYES: No recent vision problems or eye pain. ENDOCRINE: No polyuria or polydipsia. CARDIOVASCULAR: No chest pain or edema. RESPIRATORY: Positive for cough and shortness of breath. GASTROINTESTINAL: No abdominal pain, nausea, vomiting, bloody stools or diarrhea. MUSCULOSKELETAL: No joint pain or swelling. LYMPHATIC: No swollen glands. NEUROLOGIC: No seizures. No headache, focal weakness or sensory changes. HEMATOLOGIC: No unusual bruising or bleeding. PSYCHIATRIC: No depression or anxiety. Physical Exam - Vital signs Vitals: Temp Resp BP Pulse Ox 98.8 F 53 H 125/85 81 L 12/25/19 15:24 12/25/19 15:24 12/25/19 15:24 12/25/19 15:24 - Notes Notes: VITAL SIGNS: Hypoxic on room air, tachycardic, tachypneic. GENERAL: No acute distress, non-toxic appearance. HEAD: Normal with no signs of head trauma. EYES: Conjunctiva normal, no discharge. EARS: Hearing grossly intact. NOSE: Normal. NECK: Normal range of motion, no tenderness, supple, no lymphadenopathy, No adenopathy, no JVD. CHEST: Tachypneic. No accessory muscle use. CARDIAC: Regular rate and rhythm. VASCULAR: No Edema. ABDOMEN: Normal and soft with no tenderness GENITOURINARY: Normal, No tenderness LYMPATHTIC: No lymphadenopathy noted. MUSCULOSKELETAL: Good range of motion of all major joints. Extremities without clubbing, cyanosis or edema. NEUROLOGICAL: Alert and oriented x 3. No focal sensory or strength deficits. Speech normal. Follows commands appropriately. PSYCHIATRIC: Normal Affect, judgement and mood. SKIN: Normal appearance with no rashes or lesions. Course - Re-evaluation Re-evalutation: 12/25/19 18:42 Patient was placed on BiPAP. He is tachypneic but O2 saturations are in the low 90s. Patient does not appear to be in any respiratory distress. His lab work is consistent with his previous COVID diagnosis as he has an elevated ferritin and other inflammatory markers. Patient's x-ray is concerning for bilateral pneumonia. He will be treated with Rocephin and azithromycin to cover other pathogens. I have also given him dexamethasone. he was not given sepsis fluids due to the COVID to avoid fluid overload with his lung findings.. Patient was given 1 L of fluids. His glucose is elevated in the 500s. I ordered him subcutaneous insulin. Patient will be admitted to the hospitalist service. Discussed with the ICU attending who stated that if his pH on his ABG is normal, that he may go to the floor. Patient began to have O2 saturations in the high 80s. He was switched to CPAP and O2 saturations are now in the mid 90s. 12/26/19 00:00 - Vital Signs Vital signs: Temp Pulse Resp BP Pulse Ox 98.8 F 110 H 40 H 123/82 94 12/25/19 15:51 12/25/19 23:48 12/25/19 21:05 12/25/19 17:00 12/25/19 21:32 - Laboratory Result Diagrams: 12/25/19 15:34 12/25/19 15:34 Laboratory results interpreted by me: 12/25/19 12/25/19 12/25/19 15:34 15:34 15:34 RBC 5.71 H MCV 79 L MCH 25.5 L RDW 14.5 H Lymph % (Auto) 9.2 L Seg Neutrophils % 81.5 H D-Dimer Carbonic Acid ABG pCO2 ABG pO2 ABG Total CO2 ABG O2 Saturation Potassium 5.2 H BUN 26 H Glucose 524 H* Lactic Acid 3.0 H Calcium 8.3 L Ferritin 1170.00 H Direct Bilirubin 0.5 H Lactate Dehydrogenase 567 H C-Reactive Protein 255.0 H 12/25/19 12/25/19 15:34 15:34 RBC MCV MCH RDW Lymph % (Auto) Seg Neutrophils % D-Dimer 0.78 H Carbonic Acid 0.98 L ABG pCO2 32.7 L ABG pO2 58.2 L ABG Total CO2 22.4 L ABG O2 Saturation 91.3 L Potassium BUN Glucose Lactic Acid Calcium Ferritin Direct Bilirubin Lactate Dehydrogenase C-Reactive Protein - Diagnostic Test Radiology reviewed: Image reviewed, Reports reviewed - EKG Interpretation by Me EKG shows normal: Sinus rhythm Rate: Tachycardia Rhythm: NSR When compared to previous EKG there are: No significant change Additional EKG results interpreted by me: 12/25/19 18:44 EKG interpreted by me. Sinus tachycardia at a rate of 118. QTc 415. No acute ST changes. No significant change from previous EKG. Critical Care Note - Critical Care Note Total time excluding time spent on procedures (mins): 30 Comments: Upon my evaluation, this patient had a high probability of eminent or life- threatening deterioration due to acute respiratory failure, which required my direct attention, intervention, and personal management. I have personally provided 30 minutes of critical care time. Time includes review of laboratory data, radiology results, discussion with consultants, and monitoring for potential decompensation. Discharge - Discharge Clinical Impression: Acute respiratory failure due to COVID-19, Hyperglycemia Disposition: ADMITTED INPATIENT Admitting Provider: Cinthia (Hospitalist) Unit Admitted: [facility]
[2019-12-25 16:04] LABS: ABSOLUTE LYMPHOCYTES (AUTO) 0.5 10^3/uL (0.5-4.7); ABSOLUTE MONOCYTES (AUTO) 0.5 10^3/uL (0.1-1.4); ABSOLUTE NEUT (AUTO) 4.7 10^3/uL (1.7-8.2); BASOPHILS % (AUTO) 0.3 % (0-2); HEMATOCRIT 45.1 % (37.9-51.0); HEMOGLOBIN 14.5 g/dL (13.5-17.0); LYMPHOCYTES % (AUTO) 9.2 % (13-45); MEAN CORPUSCULAR HEMOGLOBIN 25.5 pg (27.0-33.4); MEAN CORPUSCULAR HGB CONC 32.2 g/dL (32.0-36.0); MEAN CORPUSCULAR VOLUME 79 fl (80-97); PLATELET COUNT 202 10^3/uL (150-450); RED BLOOD COUNT 5.71 10^6/uL (4.35-5.55); RED CELL DISTRIBUTION WIDTH 14.5 % (11.5-14.0); SEGMENTED NEUTROPHILS % (AUTO) 81.5 % (42-78); TOTAL CELLS COUNTED % (AUTO) 100 %; WHITE BLOOD COUNT 5.7 10^3/uL (4.0-10.5)
[2019-12-25 16:13] LABS: INTERNATIONAL RATION (INR) 1.01; PROTHROMBIN TIME 13.5 SEC (11.4-15.4)
[2019-12-25 16:26] LABS: ALBUMIN 3.7 g/dL (3.5-5.0); ALKALINE PHOSPHATASE 77 U/L (38-126); ANION GAP 17 (5-19); ASPARTATE AMINO TRANSFERASE 52 U/L (17-59); BILIRUBIN,DIRECT 0.5 mg/dL (0.0-0.4); BILIRUBIN,TOTAL 0.7 mg/dL (0.2-1.3); BLOOD UREA NITROGEN 26 mg/dL (7-20); CALCIUM 8.3 mg/dL (8.4-10.2); CARBON DIOXIDE 24 mmol/L (22-30); CHLORIDE 99 mmol/L (98-107); POTASSIUM 5.2 mmol/L (3.6-5.0); TOTAL PROTEIN 7.1 g/dL (6.3-8.2)
[2019-12-25] MEDS ORDERED: LORAZEPAM INJ 2 MG/1 ML VIAL IV ONE (16:29)
[2019-12-25] MEDS ORDERED: NORMAL SALINE 1000 ML 1,000 ML IV ONE (16:29)
[2019-12-25 16:41] LABS: GLUCOSE 524 mg/dL (75-110)
--- NOTE | 2019-12-25 16:49 | RADIOLOGY REPORT (SQ) ---
EXAM DESCRIPTION: CHEST SINGLE VIEW IMAGES COMPLETED DATE/TIME: 12/25/2019 4:31 pm REASON FOR STUDY: shortness of breath COMPARISON: None. EXAM PARAMETERS: NUMBER OF VIEWS: One view. TECHNIQUE: Single frontal radiographic view of the chest acquired. RADIATION DOSE: NA LIMITATIONS: None. FINDINGS: LUNGS AND PLEURA: Low lung volumes. Patchy opacification in the lung bases. MEDIASTINUM AND HILAR STRUCTURES: No masses. Contour normal. HEART AND VASCULAR STRUCTURES: Heart normal in size. Normal vasculature. BONES: No acute findings. HARDWARE: None in the chest. OTHER: No other significant finding. IMPRESSION: Low lung volumes. Cannot exclude bibasilar pneumonia. TECHNICAL DOCUMENTATION: JOB ID: [id number] 2010 [employer]- All Rights Reserved Reading location - IP/workstation name: [email or web address]
[2019-12-25] MEDS ORDERED: CEFTRIAXONE 2 GM/D5W RTU 2 GM/50 ML RTUPB IV ONE (16:50)
[2019-12-25] MEDS ORDERED: AZITHROMYCIN INJ 500 MG VIAL IV ONE (16:58)
[2019-12-25] MEDS ORDERED: INSULIN REG, HUMAN 100 UNIT/ML 3 ML VIAL (PYX) SUBCUT ONE (17:06)
[2019-12-25 18:08] LABS: ARTERIAL BLOOD FIO2 70%; ARTERIAL BLOOD H2CO3 0.98 mmol/L (1.05-1.35); ARTERIAL BLOOD HCO3 21.4 mmol/L (20-24); ARTERIAL BLOOD O2 SATURATION 91.3 % (94-98); ARTERIAL BLOOD PCO2 32.7 mmHg (35-45); ARTERIAL BLOOD PH 7.43 (7.35-7.45); ARTERIAL BLOOD PO2 58.2 mmHg (80-100); ARTERIAL BLOOD TOTAL CO2 22.4 mmol/L (23-27)
[2019-12-25] MEDS ORDERED: ALBUTEROL SULFATE HFA (90 MCG/PUFF) 8 GM MDI IH PRN (20:09)
[2019-12-25] MEDS ORDERED: GUAIFENESIN SYRP 200 MG/10 ML UDC PO PRN (20:09)
[2019-12-25] MEDS ORDERED: GLUCAGON,HUMAN RECOMB 1 MG INJ IM PRN (20:26)
[2019-12-25] MEDS ORDERED: DEXTROSE 40% GEL 15 GM TUBE PO PRN ×2 (20:26)
[2019-12-25] MEDS ORDERED: DEXTROSE 50%-WATER 25 GM/50 ML DISP.SYRIN IV PRN ×2 (20:26)
[2019-12-25] MEDS ORDERED: LORAZEPAM INJ 2 MG/1 ML VIAL IV PRN (20:33)
--- NOTE | 2019-12-25 20:59 | PDOC H&P ---
History of Present Illness Admission Date/PCP: 12/25/19 19:37 Patient complains of: Increasing shortness of breath and fever with progressive weakness over the last several days History of Present Illness: CAROLANN TOLLIVER is a 54 year old male with a history of a distant myocardial infarction, hypertension and type 2 diabetes mellitus who presents with increasing weakness, shortness of breath and a nonproductive cough with fever and nausea over the last 1 to 2 days. He was tested at [facility] and was positive for Covid-19 but his illness has progressed and so he presented to the emergency department. He was markedly hypoxic in the field (pulse ox 65% by EMS on room air). As well as tachycardic and tachypneic. Chest x-ray reveals possible bilateral pneumonia. He does not have an elevated white blood cell count however his ferritin and LDH are markedly elevated. C-reactive protein is also elevated at 255. D-dimer is positive but less than 1.0. The patient will be admitted to the hospitalist service. He will get antibiotic therapy as well as the normal supplements for COVID patient's. He will receive dexamethasone IV and will use metered-dose inhaler as opposed to nebulizer therapy at this time. He is currently on CPAP and we will taper this as tolerated. Past Medical History Cardiac Medical History: Reports: Myocardial Infarction - Several years ago, Hypertension Endocrine Medical History: Reports: Diabetes Mellitus Type 2 Musculoskeltal Medical History: Reports: Arthritis Psychiatric Medical History: Reports: Depression Traumatic Medical History: Denies: Traumatic Brain Injury Hematology: Denies: Bleeding Tendencies Infectious Medical History: Reports: Methicillin-Resistant Staph Aureus Past Surgical History Past Surgical History: Reports: Tonsillectomy, Other - I&D of right thigh a bscess Social History Information Source: Patient, [facility] Records Lives with: Spouse/Significant other Smoking Status: Former Smoker Electronic Cigarette use?: No Frequency of Alcohol Use: Rare Hx Recreational Drug Use: No Hx Prescription Drug Abuse: No - Advance Directive Resuscitation Status: Full Code Surrogate healthcare decision maker:: Patient's Family History Family History: Reviewed & Not Pertinent, Other Parental Family History Reviewed: Yes Children Family History Reviewed: Yes Sibling(s) Family History Reviewed.: Yes Medication/Allergy Home Medications: Pioglitazone HCl [Actos 30 mg Tablet] 30 mg PO DAILY 12/25/19 Semaglutide [Ozempic] 1 mg SQ .WEEKLY 12/25/19 Allergies/Adverse Reactions: No Known Allergies Allergy (Unverified 09/26/18 01:55) Review of Systems All systems: reviewed and no additional remarkable complaints except as stated Constitutional: PRESENT: fever(s) Respiratory: PRESENT: cough, dyspnea Gastrointestinal: PRESENT: diarrhea, nausea Neurological: PRESENT: numbness, other - Loss of taste Physical Exam Vital Signs: Temp Pulse Resp BP Pulse Ox 98.8 F 44 H 123/82 90 L 12/25/19 15:51 12/25/19 17:01 12/25/19 17:00 12/25/19 17:01 Intake & Output 12/24/19 12/25/19 12/26/19 06:59 06:59 06:59 Intake Total 1050 Balance 1050 Weight 147.871 kg General appearance: PRESENT: cooperative, morbidly obese, well-developed, well-nourished, other - Well-developed morbidly obese 54-year-old patient currently on BiPAP in moderate to severe distress. Head exam: PRESENT: atraumatic, normocephalic Eye exam: PRESENT: EOMI, PERRLA. ABSENT: conjunctiva pink, nystagmus, scleral icterus Ear exam: PRESENT: normal external ear exam. ABSENT: bleeding, drainage Mouth exam: PRESENT: other - BiPAP mask in place Neck exam: ABSENT: carotid bruit, JVD, lymphadenopathy, tracheostomy Respiratory exam: PRESENT: rales - Bilateral bases, symmetrical, tachypnea, other - Limited inspiratory phase due to tachypnea. ABSENT: wheezes Cardiovascular exam: PRESENT: +S1, +S2, systolic murmur - 2/6, tachycardia. ABSENT: bradycardia, diastolic murmur, irregular rhythm Pulses: PRESENT: normal radial pulses, normal dorsalis pedis pul GI/Abdominal exam: PRESENT: normal bowel sounds, soft, other - Protuberant abdomen. ABSENT: guarding, tenderness Rectal exam: PRESENT: deferred Gentrourinary exam: ABSENT: indwelling catheter Extremities exam: PRESENT: pedal edema. ABSENT: clubbing Musculoskeletal exam: PRESENT: normal inspection. ABSENT: deformity, dislocation Neurological exam: PRESENT: alert, awake, oriented to person, oriented to place, oriented to time, oriented to situation, CN II-XII grossly intact, motor sensory deficit - Patient reports some numbness in his lower extremities. Patient also reports loss of taste. Sense of smell has returned.. ABSENT: altered Psychiatric exam: PRESENT: appropriate affect - Affect reflects his current clinical state. ABSENT: agitated, anxious Focused psych exam: ABSENT: delusional, paranoid, restlessness Skin exam: PRESENT: dry, normal color, warm. ABSENT: rash Results Laboratory Results: 12/25/19 15:34 12/25/19 15:34 12/25/19 12/25/19 12/25/19 15:34 15:34 15:34 WBC 5.7 RBC 5.71 H Hgb 14.5 Hct 45.1 MCV 79 L MCH 25.5 L MCHC 32.2 RDW 14.5 H Plt Count 202 Seg Neutrophils % 81.5 H Carbonic Acid HCO3/H2CO3 Ratio ABG pH ABG pCO2 ABG pO2 ABG HCO3 ABG O2 Saturation ABG Base Excess FiO2 Sodium 139.6 Potassium 5.2 H Chloride 99 Carbon Dioxide 24 Anion Gap 17 BUN 26 H Creatinine 1.20 Est GFR ( Amer) > 60 Glucose 524 H* Lactic Acid 3.0 H Calcium 8.3 L Ferritin 1170.00 H Total Bilirubin 0.7 AST 52 Alkaline Phosphatase 77 C-Reactive Protein 255.0 H Total Protein 7.1 Albumin 3.7 12/25/19 12/25/19 15:34 18:40 WBC RBC Hgb Hct MCV MCH MCHC RDW Plt Count Seg Neutrophils % Carbonic Acid 0.98 L HCO3/H2CO3 Ratio 21:1 ABG pH 7.43 ABG pCO2 32.7 L ABG pO2 58.2 L ABG HCO3 21.4 ABG O2 Saturation 91.3 L ABG Base Excess -2.0 FiO2 70% Sodium Potassium Chloride Carbon Dioxide Anion Gap BUN Creatinine Est GFR ( Amer) Glucose Lactic Acid 1.5 Calcium Ferritin Total Bilirubin AST Alkaline Phosphatase C-Reactive Protein Total Protein Albumin 12/25/19 15:34 Troponin I < 0.012 Impressions: Chest X-Ray 12/25/19 15:37 IMPRESSION: Low lung volumes. Cannot exclude bibasilar pneumonia. Assessment and Plan - Diagnosis (1) Acute respiratory failure with hypoxemia Is this a current diagnosis for this admission?: Yes Plan: Secondary to pneumonia. Currently on CPAP with oxygen supplementation. With ongoing treatment of his COVID pneumonia we should be able to taper him from BiPAP to oxygen supplementation and eventually back to room air. (2) Pneumonia due to COVID-19 virus Is this a current diagnosis for this admission?: Yes Plan: Azithromycin and ceftriaxone. Dexamethasone as well as vitamin D, melatonin, vitamin C and zinc. (3) Hyperglycemia due to type 2 diabetes mellitus Qualifiers: Diabetes mellitus snf insulin use: with intermodal dispatcher use Qualified Code(s): E11.65 - Type 2 diabetes mellitus with hyperglycemia; Z79.4 - moth exterminator (current) use of insulin Is this a current diagnosis for this admission?: Yes Plan: The patient is markedly hyperglycemic. He does not know his medication regimen as yet. It is in his phone and the phone was left in the ambulance. Only Actos and Ozempic are on his medication list. He is on a sliding scale. I did continue his Actos. He will be on a diabetic diet. I started Lantus dosing but will need more information to administer the right dose that the patient usually takes. He has required several one-time doses tonight. Hopefully will get his medication regimen from the patient or through pharmacy medication reconciliation and we can get his glucose down and steady. (4) Tachypnea Is this a current diagnosis for this admission?: Yes Plan: Secondary to respiratory failure. Will monitor. Should resolve as the pneumonia improves. (5) Tachycardia Is this a current diagnosis for this admission?: Yes Plan: Secondary to the infection. The patient is getting IV fluids in addition to the treatment plan for the pneumonia. I expect the tachycardia to normalize in the next day or so. (6) Hyperkalemia Is this a current diagnosis for this admission?: Yes Plan: Serum potassium is 5.2. He will be getting IV fluids. No Kayexalate at this time. Recheck electrolytes in the morning. (7) Type 2 diabetes, uncontrolled, with neuropathy Is this a current diagnosis for this admission?: Yes Plan: The patient believes he is on a medicine for neuropathy from his diabetes. As we do not have that information currently I have not ordered anything for neuropathy. It may very well be gabapentin but we should have that information in the morning. (8) Morbid obesity Is this a current diagnosis for this admission?: Yes Plan: BMI is 42. This certainly puts him at higher risk for complications from his COVID pneumonia. In addition it adds a level of complexity to his other comorbidities. After he recovers from this infection he should consider more aggressive dieting and initiating an exercise program. - Time Time Spent with patient: 35 or more minutes Medications reviewed and adjusted accordingly: Yes Anticipated Discharge Disposition: Home with Home Health Anticipated Discharge Timeframe: Unknown - Inpatient Certification Based on my medical assessment, after consideration of the patient's comorbidities, presenting symptoms, or acuity I expect that the services needed warrant INPATIENT care.: Yes I certify that my determination is in accordance with my understanding of Medicare's requirements for reasonable and necessary INPATIENT services [42 CFR 412.3e].: Yes Medical Necessity: Significant Comorbidiites Make Outpatient Treatment Too Risky, Need Close Monitoring Due to Risk of Patient Decompensation, Need For IV Fluids, Need For Continuous Telemetry Monitoring, Need for IV Antibiotics Post Hospital Care: D/C or Transfer Summary
[2019-12-25] MEDS ORDERED: INSULIN GLARGINE,HUM.REC.ANLOG 1,000 UNIT/10 ML VIAL SUBCUT SCH (22:00)
[2019-12-25] MEDS: MELATONIN 5 MG TABLET PO SCH (23:05)
[2019-12-25] MEDS: ENOXAPARIN SODIUM INJ 40 MG/0.4 ML DISP.SYRIN SUBCUT SCH (23:05)
[2019-12-25] MEDS: ASPIRIN 81 MG TABLET, ENT COATED PO SCH (23:05)
[2019-12-25] MEDS: INSULIN LISPRO 100 UNIT/ML 3 ML VIAL SUBCUT SCH (23:06)
[2019-12-25] MEDS: NORMAL SALINE 1000 ML 1,000 ML IV PRN (23:06)
[2019-12-25] MEDS: MORPHINE SULFATE 10 MG/ML INJ IV PRN (23:13)
[2019-12-25 23:54] LABS: ANION GAP 16 (5-19); BLOOD UREA NITROGEN 25 mg/dL (7-20); CALCIUM 8.3 mg/dL (8.4-10.2); CARBON DIOXIDE 19 mmol/L (22-30); CHLORIDE 104 mmol/L (98-107); POTASSIUM 5.6 mmol/L (3.6-5.0)
[2019-12-26 00:05] LABS: GLUCOSE 550 mg/dL (75-110)
--- NOTE | 2019-12-26 00:48 | EKG REPORT ---
SEVERITY:- OTHERWISE NORMAL ECG - SINUS TACHYCARDIA : Confirmed by: Hedy Arizmendi MD 26-Dec-2019 00:48:15
[2019-12-26] MEDS ORDERED: INSULIN REG, HUMAN 100 UNIT/ML 3 ML VIAL (PYX) SUBCUT ONE (01:20)
[2019-12-26 04:24] LABS: APPEARANCE,URINE SLIGHTLY-CLOUDY; BILIRUBIN,URINE NEGATIVE (NEGATIVE); COLOR,URINE YELLOW; GLUCOSE, URINE >=500 mg/dL (NEGATIVE); KETONES,URINE 20 mg/dL (NEGATIVE); PROTEIN,URINE 100 mg/dL (NEGATIVE); URINE SPECIFIC GRAVITY 1.035; UROBILINOGEN,URINE NEGATIVE mg/dL (<2.0)
[2019-12-26] MEDS: PANTOPRAZOLE SODIUM 40 MG TABLET.DR PO SCH (05:03)
--- NOTE | 2019-12-26 05:12 | ADVANCED CARE ---
- Diagnosis (1) Acute respiratory failure with hypoxemia Diagnosis Current: Yes (2) Pneumonia due to COVID-19 virus Diagnosis Current: Yes (3) Hyperglycemia due to type 2 diabetes mellitus Diagnosis Current: Yes (4) Tachypnea Diagnosis Current: Yes (5) Tachycardia Diagnosis Current: Yes (6) Hyperkalemia Diagnosis Current: Yes (7) Type 2 diabetes, uncontrolled, with neuropathy Diagnosis Current: Yes (8) Morbid obesity Diagnosis Current: Yes Attendance: Discussion was held at the bedside with the patient. Resuscitation Status: Full Code Discussion: The patient wishes to be full code. This is an appropriate decision. I did explain that if he were to so choose especially if his condition markedly worsens with his COVID pneumonia he can always change CODE STATUS to DNR. I also ensured him that despite the CODE STATUS of DO NOT RESUSCITATE the patient's get the most aggressive treatment possible and the only time that this decision comes into affect is for a catastrophic event or severe decline that has not responded to aggressive therapy. Care Planning Goals: To educate the patient for the future when a change to DNR might be appropriate. Document(s) Completed: None Time Spent: 20 minutes
[2019-12-26] MEDS ORDERED: INSULIN LISPRO 100 UNIT/ML 3 ML VIAL SUBCUT ONE (05:30)
[2019-12-26] MEDS: INSULIN LISPRO 100 UNIT/ML 3 ML VIAL SUBCUT SCH ×4 (07:54→21:54)
[2019-12-26 07:55] LABS: ABSOLUTE LYMPHOCYTES (AUTO) 0.6 10^3/uL (0.5-4.7); ABSOLUTE MONOCYTES (AUTO) 0.5 10^3/uL (0.1-1.4); ABSOLUTE NEUT (AUTO) 4.9 10^3/uL (1.7-8.2); BASOPHILS % (AUTO) 0.3 % (0-2); HEMATOCRIT 40.7 % (37.9-51.0); HEMOGLOBIN 13.3 g/dL (13.5-17.0); LYMPHOCYTES % (AUTO) 10.3 % (13-45); MEAN CORPUSCULAR HEMOGLOBIN 25.9 pg (27.0-33.4); MEAN CORPUSCULAR HGB CONC 32.8 g/dL (32.0-36.0); MEAN CORPUSCULAR VOLUME 79 fl (80-97); PLATELET COUNT 167 10^3/uL (150-450); RED BLOOD COUNT 5.14 10^6/uL (4.35-5.55); RED CELL DISTRIBUTION WIDTH 14.6 % (11.5-14.0); SEGMENTED NEUTROPHILS % (AUTO) 81.4 % (42-78); TOTAL CELLS COUNTED % (AUTO) 100 %
[2019-12-26] MEDS: NORMAL SALINE 1000 ML 1,000 ML IV PRN ×2 (07:59→15:11)
[2019-12-26] MEDS ORDERED: INFLUENZA QUAD (6MOS+) 2020-21 VAC 0.5 ML SYR IM ONE (08:00)
[2019-12-26 08:29] LABS: ANION GAP 13 (5-19); BLOOD UREA NITROGEN 27 mg/dL (7-20); CALCIUM 8.2 mg/dL (8.4-10.2); CARBON DIOXIDE 23 mmol/L (22-30); CHLORIDE 106 mmol/L (98-107); POTASSIUM 5.7 mmol/L (3.6-5.0)
[2019-12-26 08:39] LABS: GLUCOSE 438 mg/dL (75-110)
[2019-12-26] MEDS ORDERED: LACTULOSE SYRUP 20 GM/30 ML UDCUP PO ONE (09:00)
[2019-12-26] MEDS ORDERED: INSULIN GLARGINE,HUM.REC.ANLOG 1,000 UNIT/10 ML VIAL SUBCUT SCH ×2 (10:00→22:00)
[2019-12-26] MEDS: ZINC SULFATE 220 MG CAPSULE PO SCH (10:25)
[2019-12-26] MEDS: CHOLECALCIFEROL (D3) 1,000 UNIT (25 MCG) TABLET PO SCH (10:25)
[2019-12-26] MEDS: DEXAMETHASONE SOD PHOS INJ 10 MG/1 ML VIAL IV SCH (10:25)
[2019-12-26] MEDS: PIOGLITAZONE HCL 30 MG TABLET PO SCH (10:25)
[2019-12-26] MEDS: ASCORBIC ACID 500 MG TABLET PO SCH ×2 (10:25→17:36)
[2019-12-26] MEDS: ENOXAPARIN SODIUM INJ 40 MG/0.4 ML DISP.SYRIN SUBCUT SCH (10:26)
[2019-12-26] MEDS ORDERED: PHARMACY COMMUNICATION ORDER MC NR (13:30)
[2019-12-26] MEDS ORDERED: REMDESIVIR (EUA) 200 MG in NORMAL SALINE 250 ML IV ONE (17:00)
--- NOTE | 2019-12-26 17:29 | PDOC PROGRESS REPORT ---
Subjective Progress Note for:: 12/26/19 Subjective:: CAROLANN TOLLIVER is a 54 year old male with a history of a distant myocardial infarction, hypertension, type 2 diabetes mellitus, and morbid obesity who was admitted 12/26/19 for acute respiratory failure w/ hypoxia r/t COVID pneumonia. Patient was seen on afternoon rounds. He is found resting in bed on supplemental oxygen by CPAP at 100% FiO2. Nursing has made multiple attempts today to wean the patient from CPAP to nasal cannula, oxymizer, and simple mask for short periods of time so that the patient can eat his meals, however, he rapidly desaturates to the low 80s and requires several minutes to recover when CPAP is replaced. Patient does admit to dyspnea and anxiety at rest. He denies nonproductive cough or pleuritic chest pain. Further denies fever, chills, chest pain, palpitations, abdominal pain, nausea vomiting and diarrhea. No concerns per patient at this time. No other concerns per nursing. Reason For Visit: COVID 19 PNEUMONIA,ACUTE RESPIRATORY FAILURE WITH Physical Exam Vital Signs: Temp Pulse Resp BP Pulse Ox 98.2 F 86 18 102/79 88 L 12/26/19 11:32 12/26/19 14:00 12/26/19 15:46 12/26/19 11:32 12/26/19 15:46 Intake & Output 12/25/19 12/26/19 12/27/19 06:59 06:59 06:59 Intake Total 1050 2000 Output Total 100 600 Balance 950 1400 Weight 140.5 kg General appearance: PRESENT: no acute distress, cooperative, morbidly obese, well-developed, well-nourished, other - Acutely ill-appearing Head exam: PRESENT: atraumatic, normocephalic Eye exam: PRESENT: conjunctiva pink, EOMI, PERRLA. ABSENT: scleral icterus Mouth exam: PRESENT: moist, tongue midline Respiratory exam: PRESENT: clear to auscultation onofre, decreased breath sounds - Throughout, symmetrical, tachypnea, unlabored, other - supplemental oxygen by CPAP; FiO2 100%. ABSENT: rales, rhonchi, wheezes Cardiovascular exam: PRESENT: RRR, +S1, +S2. ABSENT: diastolic murmur, rubs, systolic murmur Pulses: PRESENT: normal dorsalis pedis pul Vascular exam: PRESENT: normal capillary refill Extremities exam: PRESENT: full ROM, +1 edema - BLE; soft, nonpitting. ABSENT: calf tenderness, clubbing, pedal edema Neurological exam: PRESENT: alert, awake, oriented to person, oriented to place, oriented to time, oriented to situation, CN II-XII grossly intact. ABSENT: motor sensory deficit Psychiatric exam: PRESENT: anxious, appropriate affect, normal mood. ABSENT: ho micidal ideation, suicidal ideation Skin exam: PRESENT: dry, intact, warm. ABSENT: cyanosis, rash Results Laboratory Results: 12/26/19 07:10 12/26/19 07:10 12/25/19 12/25/19 12/25/19 15:34 15:34 18:40 WBC RBC Hgb Hct MCV MCH MCHC RDW Plt Count Seg Neutrophils % Carbonic Acid 0.98 L HCO3/H2CO3 Ratio 21:1 ABG pH 7.43 ABG pCO2 32.7 L ABG pO2 58.2 L ABG HCO3 21.4 ABG O2 Saturation 91.3 L ABG Base Excess -2.0 FiO2 70% Sodium Potassium Chloride Carbon Dioxide Anion Gap BUN Creatinine Est GFR ( Amer) Glucose Lactic Acid 1.5 Calcium Magnesium Ferritin 1170.00 H Urine Color Urine Appearance Urine pH Ur Specific [place] Urine Protein Urine Glucose (UA) Urine Ketones Urine Blood Urine RBC (Auto) 12/25/19 12/25/19 12/26/19 21:35 23:19 03:33 WBC RBC Hgb Hct MCV MCH MCHC RDW Plt Count Seg Neutrophils % Carbonic Acid HCO3/H2CO3 Ratio ABG pH ABG pCO2 ABG pO2 ABG HCO3 ABG O2 Saturation ABG Base Excess FiO2 Sodium 139.3 Potassium 5.6 H Chloride 104 Carbon Dioxide 19 L Anion Gap 16 BUN 25 H Creatinine 1.09 Est GFR ( Amer) > 60 Glucose 550 H* Lactic Acid 1.3 Calcium 8.3 L Magnesium 3.1 H Ferritin Urine Color YELLOW Urine Appearance SLIGHTLY-CLOUDY Urine pH 5.0 Ur Specific [place] 1.035 Urine Protein 100 H Urine Glucose (UA) >=500 H Urine Ketones 20 H Urine Blood MODERATE H Urine RBC (Auto) 1 12/26/19 12/26/19 07:10 07:10 WBC 6.0 RBC 5.14 Hgb 13.3 L Hct 40.7 MCV 79 L MCH 25.9 L MCHC 32.8 RDW 14.6 H Plt Count 167 Seg Neutrophils % 81.4 H Carbonic Acid HCO3/H2CO3 Ratio ABG pH ABG pCO2 ABG pO2 ABG HCO3 ABG O2 Saturation ABG Base Excess FiO2 Sodium 142.0 Potassium 5.7 H Chloride 106 Carbon Dioxide 23 Anion Gap 13 BUN 27 H Creatinine 1.03 Est GFR ( Amer) > 60 Glucose 438 H* Lactic Acid Calcium 8.2 L Magnesium Ferritin Urine Color Urine Appearance Urine pH Ur Specific [place] Urine Protein Urine Glucose (UA) Urine Ketones Urine Blood Urine RBC (Auto) 12/25/19 15:34 Troponin I < 0.012 Impressions: Chest X-Ray 12/25/19 15:37 IMPRESSION: Low lung volumes. Cannot exclude bibasilar pneumonia. Assessment and Plan - Diagnosis (1) Pneumonia due to COVID-19 virus Is this a current diagnosis for this admission?: Yes Plan: Patient tested positive for COVID 12/17/2009 D-dimer is elevated but under 1. ABG reveals compensated respiratory alkalosis with hypoxia Ferritin 1170 CRP 255 Continue DVT prophylaxis dosed Lovenox Consider full dose should d-dimer trend up; periodic evaluations as clinical condition changes. Provide supplemental oxygen as needed maintain saturations greater than 89%. Currently requiring CPAP with FiO2 100%; will trial high flow nasal cannula IV azithromycin and ceftriaxone; consider discontinuing ceftriaxone at 72 hours if cultures remain negative. 5-day course of azithromycin. IV Remdesivir IV dexamethasone. Albuterol prn Zinc, vitamin D, vitamin C, and melatonin supplementation. Encourage pulmonary toilet. Isolation precautions. (2) Acute respiratory failure with hypoxemia Is this a current diagnosis for this admission?: Yes Plan: Secondary to # 1 Evaluation and management as above. (3) Hyperkalemia Is this a current diagnosis for this admission?: Yes Plan: Serum potassium is 5.7. He will be getting IV fluids. Lactulose x1. Serial chemistries (4) Type 2 diabetes, uncontrolled, with neuropathy Is this a current diagnosis for this admission?: Yes Plan: A1c 11.4%. Continuing home dose Actos. Start Lantus 16 units every 12. Patient is placed on a consistent carb diet. Accu-Cheks before meals and at bedtime with Humalog for sliding scale coverage. Hypoglycemia protocol in place. Registered dietitian ems educator consulted. (5) Hyperglycemia due to type 2 diabetes mellitus Qualifiers: Diabetes mellitus equipment operator intermodal yard insulin use: with equipment operator intermodal yard use Qualified Code(s): E11.65 - Type 2 diabetes mellitus with hyperglycemia; Z79.4 - halfway (current) use of insulin Is this a current diagnosis for this admission?: Yes Plan: As above. (6) Morbid obesity Is this a current diagnosis for this admission?: Yes Plan: BMI is 42. Lifestyle modification dietary discretion advised. Currently on consistent carb diet. Patient educator and registered dietitian consulted. (7) Tachypnea Is this a current diagnosis for this admission?: Yes Plan: Secondary to respiratory failure. Will monitor. Should resolve as the pneumonia improves. (8) Tachycardia Is this a current diagnosis for this admission?: Yes Plan: Secondary to respiratory failure and Acute infectious process. Gentle IV fluids. Monitor on telemetry. - Time Time Spent with patient: 35 or more minutes Medications reviewed and adjusted accordingly: Yes Anticipated Discharge Disposition: Home, Self Care Anticipated Discharge Timeframe: >72 hrs
[2019-12-26] MEDS: CEFTRIAXONE 1 GM/D5W RTU 1 GM/50 ML RTUPB IV SCH (17:37)
[2019-12-26] MEDS ORDERED: INSULIN GLARGINE,HUM.REC.ANLOG 1,000 UNIT/10 ML VIAL (PYX) SUBCUT PRN (17:44)
[2019-12-26] MEDS: AZITHROMYCIN 500 MG in DEXTROSE 5%-WATER 250 ML IV SCH (19:52)
[2019-12-26] MEDS ORDERED: INSULIN GLARGINE,HUM.REC.ANLOG 1,000 UNIT/10 ML VIAL (PYX) SUBCUT ONE (21:51)
[2019-12-26] MEDS: MELATONIN 5 MG TABLET PO SCH (21:54)
[2019-12-26] MEDS: ASPIRIN 81 MG TABLET, ENT COATED PO SCH (21:54)
[2019-12-27] MEDS: NORMAL SALINE 1000 ML 1,000 ML IV PRN (00:45)
[2019-12-27] MEDS: PANTOPRAZOLE SODIUM 40 MG TABLET.DR PO SCH (05:04)
[2019-12-27] MEDS: MORPHINE SULFATE 10 MG/ML INJ IV PRN (05:39)
[2019-12-27 06:58] LABS: HEMATOCRIT 37.5 % (37.9-51.0); HEMOGLOBIN 12.2 g/dL (13.5-17.0); MEAN CORPUSCULAR HEMOGLOBIN 25.5 pg (27.0-33.4); MEAN CORPUSCULAR HGB CONC 32.6 g/dL (32.0-36.0); MEAN CORPUSCULAR VOLUME 78 fl (80-97); PLATELET COUNT 206 10^3/uL (150-450); RED BLOOD COUNT 4.79 10^6/uL (4.35-5.55); RED CELL DISTRIBUTION WIDTH 14.1 % (11.5-14.0); WHITE BLOOD COUNT 5.7 10^3/uL (4.0-10.5)
[2019-12-27 07:24] LABS: ANION GAP 7 (5-19); BLOOD UREA NITROGEN 21 mg/dL (7-20); CALCIUM 7.9 mg/dL (8.4-10.2); CARBON DIOXIDE 26 mmol/L (22-30); CHLORIDE 109 mmol/L (98-107); GLUCOSE 380 mg/dL (75-110); POTASSIUM 4.8 mmol/L (3.6-5.0)
[2019-12-27] MEDS: ALBUTEROL SULFATE 0.083% NEB 2.5 MG/3 ML AMPUL NEB PRN (08:28)
[2019-12-27 08:30] LABS: ARTERIAL BLOOD H2CO3 1.37 mmol/L (1.05-1.35); ARTERIAL BLOOD HCO3 27.4 mmol/L (20-24); ARTERIAL BLOOD O2 SATURATION 91.6 % (94-98); ARTERIAL BLOOD PCO2 45.5 mmHg (35-45); ARTERIAL BLOOD PO2 61.9 mmHg (80-100); ARTERIAL BLOOD TOTAL CO2 28.8 mmol/L (23-27)
[2019-12-27 08:31] LABS: ARTERIAL BLOOD FIO2 100%
[2019-12-27] MEDS: INSULIN LISPRO 100 UNIT/ML 3 ML VIAL SUBCUT SCH ×4 (08:53→21:34)
[2019-12-27] MEDS ORDERED: INSULIN GLARGINE,HUM.REC.ANLOG 1,000 UNIT/10 ML VIAL (PYX) SUBCUT ONE (09:24)
[2019-12-27] MEDS: DEXAMETHASONE SOD PHOS INJ 10 MG/1 ML VIAL IV SCH (09:26)
[2019-12-27] MEDS: INSULIN GLARGINE,HUM.REC.ANLOG 1,000 UNIT/10 ML VIAL SUBCUT SCH ×2 (09:26→21:35)
[2019-12-27] MEDS: PIOGLITAZONE HCL 30 MG TABLET PO SCH (09:26)
[2019-12-27] MEDS: CHOLECALCIFEROL (D3) 1,000 UNIT (25 MCG) TABLET PO SCH (09:27)
[2019-12-27] MEDS: ENOXAPARIN SODIUM INJ 40 MG/0.4 ML DISP.SYRIN SUBCUT SCH (09:27)
[2019-12-27] MEDS: ASCORBIC ACID 500 MG TABLET PO SCH ×2 (09:27→17:25)
[2019-12-27] MEDS: ZINC SULFATE 220 MG CAPSULE PO SCH (09:28)
[2019-12-27] MEDS ORDERED: FUROSEMIDE INJ/PF 40 MG/4 ML SDV ONE (10:14)
[2019-12-27] MEDS ORDERED: FUROSEMIDE INJ/PF 40 MG/4 ML SDV IV ONE (11:00)
[2019-12-27 11:05] LABS: ARTERIAL BLOOD BASE EXCESS 1.4 mmol/L; ARTERIAL BLOOD H2CO3 1.34 mmol/L (1.05-1.35); ARTERIAL BLOOD HCO3 26.6 mmol/L (20-24); ARTERIAL BLOOD O2 SATURATION 95.1 % (94-98); ARTERIAL BLOOD PCO2 44.6 mmHg (35-45); ARTERIAL BLOOD PH 7.39 (7.35-7.45); ARTERIAL BLOOD PO2 75.8 mmHg (80-100)
[2019-12-27 11:10] LABS: ARTERIAL BLOOD FIO2 100%
[2019-12-27] MEDS ORDERED: NORMAL SALINE 250 ML IV PRN ×2 (11:39)
[2019-12-27 12:33] LABS: ARTERIAL BLOOD BASE EXCESS 3.6 mmol/L; ARTERIAL BLOOD FIO2 100%; ARTERIAL BLOOD H2CO3 1.28 mmol/L (1.05-1.35); ARTERIAL BLOOD HCO3 28.2 mmol/L (20-24); ARTERIAL BLOOD O2 SATURATION 93.3 % (94-98); ARTERIAL BLOOD PCO2 42.4 mmHg (35-45); ARTERIAL BLOOD PH 7.44 (7.35-7.45); ARTERIAL BLOOD PO2 64.6 mmHg (80-100); ARTERIAL BLOOD TOTAL CO2 29.5 mmol/L (23-27)
--- NOTE | 2019-12-27 13:25 | PDOC PROGRESS REPORT ---
Subjective Progress Note for:: 12/27/19 Subjective:: CAROLANN TOLLIVER is a 54 year old male with a history of a distant myocardial infarction, hypertension, type 2 diabetes mellitus, and morbid obesity who was admitted 12/26/19 for acute respiratory failure w/ hypoxia r/t COVID pneumonia. Patient was seen on morning rounds. Nursing staff had called that morning she reported that trial of high flow nasal cannula rapidly failed; FiO2 100% with max liters per minute resulted in increased dyspnea, tachypnea 40s to 50s, and oxygen saturation in the mid 70s. He was returned to CPAP with pressure of 12 and FiO2 of 100% resulting in gradual improvement in his tachypnea and oxygen saturations to the high 80s/low 90s. ABG completed at that time revealed slightly worsened respiratory status with a pH 7.40, PCO2 45.5, PaO2 61.9. CPAP pressure was increased to 20. At approximately 10 AM, the patient had a coughing episode resulting in brief alteration of mental status, incontinence, and desaturation to mid 60s. CHILD PSYCHIATRIST was called. Both myself and Dr. Gill responded immediately; upon arrival, patient was alert and oriented x4 with oxygen saturations in the mid 90s; no adjustments to oxygen support were made in the interim. Stat ABG then showed slightly worsened acidosis with pH 7.39, PCO2 44.6, PaO2 75.8. Patient's IV fluids were discontinued, provided furosemide 40 mg IV x1, repeat d-dimer, ferritin, CRP, and lactic acid requested. Compensation Programs Manager consultation was sought; spoke with Dr. Perez. Dr. Perez shruti mmended discontinuing PRN Ativan and morphine (patient did receive morphine earlier this morning), continued avoidance of BiPAP, and repeat ABG with close observation over the next hour. He graciously offered to accept the patient at any time should we begin to feel that the patient's needs exceed the care that can be provided on IMCU. Followed up with patient approximately 1 hour later. He was found resting in bed, comfortably, on CPAP (IPAP 15, FiO2 100%). He was found to be speaking in 3-4 word sentences with family members on phone. Tells me that he is feeling well. He denies dyspnea currently; denies chest discomfort/pleuritic pain. Does continue to have a frequent, nonproductive cough. One episode of diarrhea today. Discussed the patient's vital signs and laboratory findings; patient expresses understanding. We discussed option for initiating convalescent serum; patient is agreeable. Repeat ABG at noon showed improvement with pH 7.44, PCO2 42.4, PaO2 64.6 on the above-mentioned CPAP settings. No concerns per patient at this time. No other concerns per nursing. Reason For Visit: COVID 19 PNEUMONIA,ACUTE RESPIRATORY FAILURE WITH Physical Exam Vital Signs: Temp Pulse Resp BP Pulse Ox 98.9 F 98 35 H 112/75 92 12/27/19 11:56 12/27/19 11:57 12/27/19 11:57 12/27/19 11:56 12/27/19 11:57 Intake & Output 12/26/19 12/27/19 12/28/19 06:59 06:59 06:59 Intake Total 1050 3800 1000 Output Total 100 1250 Balance 950 2550 1000 Weight 140.5 kg 142.2 kg 142.2 kg General appearance: PRESENT: morbidly obese, well-developed, well-nourished, other - Moderate distress; acutely ill-appearing Head exam: PRESENT: atraumatic, normocephalic Eye exam: PRESENT: conjunctiva pink, EOMI, PERRLA. ABSENT: scleral icterus Mouth exam: PRESENT: moist, tongue midline Respiratory exam: PRESENT: clear to auscultation onofre, decreased breath sounds - Throughout; poor inspiratory effort, symmetrical, tachypnea, other - CPAP dependent. ABSENT: rales, rhonchi, wheezes Cardiovascular exam: PRESENT: RRR, +S1, +S2. ABSENT: diastolic murmur, rubs, systolic murmur Vascular exam: PRESENT: normal capillary refill GI/Abdominal exam: PRESENT: normal bowel sounds, soft. ABSENT: distended, guarding, mass, organolmegaly, rebound, tenderness Rectal exam: PRESENT: deferred Extremities exam: PRESENT: full ROM, +1 edema - Soft, nonpitting, BLE. ABSENT: calf tenderness, clubbing, pedal edema Neurological exam: PRESENT: alert, awake, oriented to person, oriented to place, oriented to time, oriented to situation, CN II-XII grossly intact. ABSENT: motor sensory deficit Psychiatric exam: PRESENT: appropriate affect, normal mood. ABSENT: homicidal ideation, suicidal ideation Skin exam: PRESENT: dry, intact, warm. ABSENT: cyanosis, rash Results Laboratory Results: 12/27/19 06:25 12/27/19 06:25 12/27/19 12/27/19 12/27/19 06:25 06:25 08:18 WBC 5.7 RBC 4.79 Hgb 12.2 L Hct 37.5 L MCV 78 L MCH 25.5 L MCHC 32.6 RDW 14.1 H Plt Count 206 Carbonic Acid 1.37 H HCO3/H2CO3 Ratio 20:1 ABG pH 7.40 ABG pCO2 45.5 H ABG pO2 61.9 L ABG HCO3 27.4 H ABG O2 Saturation 91.6 L ABG Base Excess 2.0 FiO2 100% Sodium 142.0 Potassium 4.8 Chloride 109 H Carbon Dioxide 26 Anion Gap 7 BUN 21 H Creatinine 0.75 Est GFR ( Amer) > 60 Glucose 380 H Lactic Acid Calcium 7.9 L Ferritin C-Reactive Protein 12/27/19 12/27/19 12/27/19 10:05 10:53 11:39 WBC RBC Hgb Hct MCV MCH MCHC RDW Plt Count Carbonic Acid 1.34 HCO3/H2CO3 Ratio 19:1 ABG pH 7.39 ABG pCO2 44.6 ABG pO2 75.8 L ABG HCO3 26.6 H ABG O2 Saturation 95.1 ABG Base Excess 1.4 FiO2 100% Sodium Potassium Chloride Carbon Dioxide Anion Gap BUN Creatinine Est GFR ( Amer) Glucose Lactic Acid 2.0 Calcium Ferritin 947.00 H C-Reactive Protein 90.0 H 12/27/19 12:10 WBC RBC Hgb Hct MCV MCH MCHC RDW Plt Count Carbonic Acid 1.28 HCO3/H2CO3 Ratio 22:1 ABG pH 7.44 ABG pCO2 42.4 ABG pO2 64.6 L ABG HCO3 28.2 H ABG O2 Saturation 93.3 L ABG Base Excess 3.6 FiO2 100% Sodium Potassium Chloride Carbon Dioxide Anion Gap BUN Creatinine Est GFR ( Amer) Glucose Lactic Acid Calcium Ferritin C-Reactive Protein 12/25/19 15:34 Troponin I < 0.012 Impressions: Chest X-Ray 12/25/19 15:37 IMPRESSION: Low lung volumes. Cannot exclude bibasilar pneumonia. Assessment and Plan - Diagnosis (1) Pneumonia due to COVID-19 virus Is this a current diagnosis for this admission?: Yes Plan: Patient tested positive for COVID 12/17/2009 D-dimer is elevated but under 1. Ferritin 1170-> 947 CRP 255-> 90 Continue DVT prophylaxis dosed Lovenox Consider full dose should d-dimer trend up; periodic evaluations as clinical condition changes. Provide supplemental oxygen as needed maintain saturations greater than 89%. Currently requiring CPAP with FiO2 100% IV azithromycin and ceftriaxone; Day #3. Consider discontinuing ceftriaxone at 72 hours if cultures remain negative. 5-day course of azithromycin. IV Remdesivir IV dexamethasone. Convalescent serum Albuterol prn Zinc, vitamin D, vitamin C, and melatonin supplementation. Encourage pulmonary toilet. Isolation precautions. Compensation Programs Manager Consultation requested for recommendations on management of hypoxia r/t COVID (2) Acute respiratory failure with hypoxemia Is this a current diagnosis for this admission?: Yes Plan: Secondary to # 1 Evaluation and management as above. (3) Type 2 diabetes, uncontrolled, with neuropathy Is this a current diagnosis for this admission?: Yes Plan: A1c 11.4%. Continuing home dose Actos. Increased to Lantus 20 units every 12. Patient is placed on a consistent carb diet. Accu-Cheks before meals and at bedtime with Humalog for sliding scale coverage. Hypoglycemia protocol in place. Registered dietitian breastfeeding educator consulted. (4) Hyperglycemia due to type 2 diabetes mellitus Qualifiers: Diabetes mellitus skilled nursing insulin use: with skilled nursing use Qualified Code(s): E11.65 - Type 2 diabetes mellitus with hyperglycemia; Z79.4 - alf (current) use of insulin Is this a current diagnosis for this admission?: Yes Plan: As above. (5) Morbid obesity Is this a current diagnosis for this admission?: Yes Plan: BMI is 42. Lifestyle modification dietary discretion advised. Currently on consistent carb diet. Patient educator and registered dietitian consulted. (6) Tachypnea Is this a current diagnosis for this admission?: Yes Plan: Secondary to respiratory failure. Will monitor. Should resolve as the pneumonia improves. (7) Tachycardia Is this a current diagnosis for this admission?: Yes Plan: Secondary to respiratory failure and Acute infectious process. Gentle IV fluids. Monitor on telemetry. (8) Hyperkalemia Is this a current diagnosis for this admission?: Yes Plan: Resolved. Serial chemistries - Time Time Spent with patient: 35 or more minutes Total Critical Time (Minutes): 40 Medications reviewed and adjusted accordingly: Yes Anticipated Discharge Disposition: undetermined Anticipated Discharge Timeframe: undetermined
[2019-12-27] MEDS: ALBUTEROL SULFATE 0.083% NEB 2.5 MG/3 ML AMPUL NEB SCH ×2 (14:33→20:23)
[2019-12-27] MEDS: CEFTRIAXONE 1 GM/D5W RTU 1 GM/50 ML RTUPB IV SCH (17:25)
[2019-12-27] MEDS: AZITHROMYCIN 500 MG in DEXTROSE 5%-WATER 250 ML IV SCH (20:10)
[2019-12-27] MEDS: ASPIRIN 81 MG TABLET, ENT COATED PO SCH (21:35)
[2019-12-27] MEDS: MELATONIN 5 MG TABLET PO SCH (21:35)
[2019-12-27] MEDS ORDERED: REMDESIVIR (EUA) 100 MG in NORMAL SALINE 250 ML IV SCH (22:00)
[2019-12-28] MEDS: ALBUTEROL SULFATE 0.083% NEB 2.5 MG/3 ML AMPUL NEB SCH ×4 (02:42→19:02)
[2019-12-28] MEDS: ACETAMINOPHEN 325 MG TABLET PO PRN (03:59)
[2019-12-28] MEDS: PANTOPRAZOLE SODIUM 40 MG TABLET.DR PO SCH (05:13)
[2019-12-28 06:44] LABS: HEMATOCRIT 38.2 % (37.9-51.0); HEMOGLOBIN 12.5 g/dL (13.5-17.0); MEAN CORPUSCULAR HEMOGLOBIN 25.5 pg (27.0-33.4); MEAN CORPUSCULAR HGB CONC 32.7 g/dL (32.0-36.0); MEAN CORPUSCULAR VOLUME 78 fl (80-97); PLATELET COUNT 237 10^3/uL (150-450); RED CELL DISTRIBUTION WIDTH 14.4 % (11.5-14.0); WHITE BLOOD COUNT 6.4 10^3/uL (4.0-10.5)
[2019-12-28 07:05] LABS: ANION GAP 10 (5-19); BLOOD UREA NITROGEN 20 mg/dL (7-20); CALCIUM 8.3 mg/dL (8.4-10.2); CARBON DIOXIDE 28 mmol/L (22-30); CHLORIDE 106 mmol/L (98-107); GLUCOSE 339 mg/dL (75-110); POTASSIUM 4.1 mmol/L (3.6-5.0)
[2019-12-28] MEDS: INSULIN LISPRO 100 UNIT/ML 3 ML VIAL SUBCUT SCH ×4 (07:47→22:06)
[2019-12-28] MEDS: ZINC SULFATE 220 MG CAPSULE PO SCH (10:42)
[2019-12-28] MEDS: PIOGLITAZONE HCL 30 MG TABLET PO SCH (10:42)
[2019-12-28] MEDS: INSULIN GLARGINE,HUM.REC.ANLOG 1,000 UNIT/10 ML VIAL SUBCUT SCH ×2 (10:43→22:06)
[2019-12-28] MEDS: CHOLECALCIFEROL (D3) 1,000 UNIT (25 MCG) TABLET PO SCH (10:43)
[2019-12-28] MEDS: ASCORBIC ACID 500 MG TABLET PO SCH ×2 (10:43→17:21)
[2019-12-28] MEDS: DEXAMETHASONE SOD PHOS INJ 10 MG/1 ML VIAL IV SCH (10:44)
[2019-12-28] MEDS: ENOXAPARIN SODIUM INJ 150 MG/1 ML DISP.SYRIN SUBCUT SCH ×2 (10:44→22:07)
[2019-12-28] MEDS: REMDESIVIR (EUA) 100 MG in NORMAL SALINE 250 ML IV SCH (10:45)
--- NOTE | 2019-12-28 16:10 | PDOC PROGRESS REPORT ---
Subjective Progress Note for:: 12/28/19 Subjective:: CAROLANN TOLLIVER is a 54 year old male with a history of a distant myocardial infarction, hypertension, type 2 diabetes mellitus, and morbid obesity who was admitted 12/26/19 for acute respiratory failure w/ hypoxia r/t COVID pneumonia. Patient was seen on morning rounds. He was found resting in bed on CPAP (IPAP 20/FiO2 100%) with a respiratory rate in the mid 40s and SPO2 in the low to mid 90s. Patient was sleeping soundly and did not wake when I said his name. Did not make multiple attempts to wake him. Per nursing, patient declined offer to trial high flow nasal cannula this morning due to fatigue and tachypnea. He also declined to eat breakfast. Othe rwise, patient did not voice any new complaints to them this morning. He does appear to be acutely ill with shallow tachypneic breathing and mild diaphoresis. T-max 102.8/24 hours No other concerns per nursing. Reason For Visit: COVID 19 PNEUMONIA,ACUTE RESPIRATORY FAILURE WITH Physical Exam Vital Signs: Temp Pulse Resp BP Pulse Ox 99.5 F 97 42 H 135/90 H 95 12/28/19 11:08 12/28/19 14:07 12/28/19 14:07 12/28/19 11:08 12/28/19 14:07 Intake & Output 12/27/19 12/28/19 12/29/19 06:59 06:59 06:59 Intake Total 3800 1497 60 Output Total 1250 2250 200 Balance 2550 -753 -140 Weight 142.2 kg 141.6 kg General appearance: PRESENT: disheveled, mild distress, morbidly obese, well- developed, well-nourished, other - Acutely ill-appearing Head exam: PRESENT: atraumatic, normocephalic Mouth exam: PRESENT: moist, tongue midline Respiratory exam: PRESENT: clear to auscultation onofre, decreased breath sounds - Diminished throughout, symmetrical, tachypnea - Shallow, other - CPAP dependent. ABSENT: rales, rhonchi, wheezes Cardiovascular exam: PRESENT: RRR, tachycardia. ABSENT: diastolic murmur, rubs, systolic murmur Pulses: PRESENT: normal dorsalis pedis pul Vascular exam: PRESENT: normal capillary refill Gentrourinary exam: PRESENT: indwelling catheter Extremities exam: PRESENT: full ROM. ABSENT: calf tenderness, clubbing, pedal edema Neurological exam: PRESENT: CN II-XII grossly intact, other - Sleeping soundly. ABSENT: motor sensory deficit Skin exam: PRESENT: dry, intact, warm. ABSENT: cyanosis, rash Results Laboratory Results: 12/28/19 06:15 12/28/19 06:15 12/27/19 12/28/19 12/28/19 11:50 06:15 06:15 WBC 6.4 RBC 4.90 Hgb 12.5 L Hct 38.2 MCV 78 L MCH 25.5 L MCHC 32.7 RDW 14.4 H Plt Count 237 Sodium 143.5 Potassium 4.1 Chloride 106 Carbon Dioxide 28 Anion Gap 10 BUN 20 Creatinine 0.80 Est GFR ( Amer) > 60 Glucose 339 H Calcium 8.3 L Blood Type B POSITIVE Antibody Screen NEGATIVE 12/25/19 15:34 Troponin I < 0.012 Impressions: Chest X-Ray 12/25/19 15:37 IMPRESSION: Low lung volumes. Cannot exclude bibasilar pneumonia. Assessment and Plan - Diagnosis (1) Pneumonia due to COVID-19 virus Is this a current diagnosis for this admission?: Yes Plan: Patient tested positive for COVID 12/17/2009 D-dimer 0.78-> 0.99-> 3.27 Ferritin 1170-> 947 CRP 255-> 90 Start treatment dose Lovenox Provide supplemental oxygen as needed maintain saturations greater than 89%. Currently requiring CPAP with FiO2 100% IV azithromycin; Day #3. 5-day course of azithromycin. Received Rocephin x3 days IV Remdesivir IV dexamethasone. Convalescent serum Albuterol prn Zinc, vitamin D, vitamin C, and melatonin supplementation. Encourage pulmonary toilet. Isolation precautions. Home Health Registered Nurse Consultation requested for recommendations on management of hypoxia r/t COVID (2) Acute respiratory failure with hypoxemia Is this a current diagnosis for this admission?: Yes Plan: Secondary to # 1 Evaluation and management as above. (3) Type 2 diabetes, uncontrolled, with neuropathy Is this a current diagnosis for this admission?: Yes Plan: A1c 11.4%. Continuing home dose Actos. Glucose remains elevated; consistently >300. Increased to Lantus 22 units every 12. Patient is placed on a consistent carb diet. Accu-Cheks before meals and at bedtime with Humalog for sliding scale coverage. Hypoglycemia protocol in place. Registered dietitian childbirth educator consulted. (4) Hyperglycemia due to type 2 diabetes mellitus Qualifiers: Diabetes mellitus termite control servicer insulin use: with intermediate use Qualified Code(s): E11.65 - Type 2 diabetes mellitus with hyperglycemia; Z79.4 - [facility] (current) use of insulin Is this a current diagnosis for this admission?: Yes Plan: As above. (5) Morbid obesity Is this a current diagnosis for this admission?: Yes Plan: BMI is 42. Lifestyle modification dietary discretion advised. Currently on consistent carb diet. Patient educator and registered dietitian consulted. (6) Tachypnea Is this a current diagnosis for this admission?: Yes Plan: Secondary to respiratory failure. Will monitor. Should resolve as the pneumonia improves. (7) Tachycardia Is this a current diagnosis for this admission?: Yes Plan: Secondary to respiratory failure and Acute infectious process. Gentle IV fluids. Monitor on telemetry. (8) Hyperkalemia Is this a current diagnosis for this admission?: Yes Plan: Resolved. Serial chemistries - Time Time Spent with patient: 25-34 minutes Medications reviewed and adjusted accordingly: Yes Anticipated Discharge Disposition: Home, Self Care Anticipated Discharge Timeframe: > 72 hrs
[2019-12-28] MEDS: CEFTRIAXONE 1 GM/D5W RTU 1 GM/50 ML RTUPB IV SCH (17:22)
[2019-12-28] MEDS: ALBUTEROL SULFATE 0.083% NEB 2.5 MG/3 ML AMPUL NEB PRN (18:47)
[2019-12-28] MEDS: AZITHROMYCIN 500 MG in DEXTROSE 5%-WATER 250 ML IV SCH (20:50)
[2019-12-28] MEDS: ASPIRIN 81 MG TABLET, ENT COATED PO SCH (22:06)
[2019-12-28] MEDS: MELATONIN 5 MG TABLET PO SCH (22:06)
[2019-12-29] MEDS: ALBUTEROL SULFATE 0.083% NEB 2.5 MG/3 ML AMPUL NEB SCH ×4 (02:14→21:11)
[2019-12-29] MEDS: PANTOPRAZOLE SODIUM 40 MG TABLET.DR PO SCH (05:30)
[2019-12-29 05:47] LABS: HEMATOCRIT 42.5 % (37.9-51.0); HEMOGLOBIN 13.9 g/dL (13.5-17.0); MEAN CORPUSCULAR HEMOGLOBIN 25.6 pg (27.0-33.4); MEAN CORPUSCULAR HGB CONC 32.6 g/dL (32.0-36.0); MEAN CORPUSCULAR VOLUME 79 fl (80-97); PLATELET COUNT 249 10^3/uL (150-450); RED BLOOD COUNT 5.41 10^6/uL (4.35-5.55); RED CELL DISTRIBUTION WIDTH 14.7 % (11.5-14.0); WHITE BLOOD COUNT 7.9 10^3/uL (4.0-10.5)
[2019-12-29 06:03] LABS: ANION GAP 11 (5-19); BLOOD UREA NITROGEN 18 mg/dL (7-20); CALCIUM 8.9 mg/dL (8.4-10.2); CARBON DIOXIDE 30 mmol/L (22-30); CHLORIDE 107 mmol/L (98-107); GLUCOSE 283 mg/dL (75-110)
[2019-12-29] MEDS: INSULIN LISPRO 100 UNIT/ML 3 ML VIAL SUBCUT SCH ×4 (08:09→22:30)
[2019-12-29] MEDS: ASCORBIC ACID 500 MG TABLET PO SCH ×2 (09:10→17:09)
[2019-12-29] MEDS: ENOXAPARIN SODIUM INJ 150 MG/1 ML DISP.SYRIN SUBCUT SCH ×2 (09:11→22:31)
[2019-12-29] MEDS: DEXAMETHASONE SOD PHOS INJ 10 MG/1 ML VIAL IV SCH (09:12)
[2019-12-29] MEDS: ACETAMINOPHEN 325 MG TABLET PO PRN (09:13)
[2019-12-29] MEDS: PIOGLITAZONE HCL 30 MG TABLET PO SCH (09:14)
[2019-12-29] MEDS: ZINC SULFATE 220 MG CAPSULE PO SCH (09:14)
[2019-12-29] MEDS: CHOLECALCIFEROL (D3) 1,000 UNIT (25 MCG) TABLET PO SCH (09:15)
[2019-12-29] MEDS: INSULIN GLARGINE,HUM.REC.ANLOG 1,000 UNIT/10 ML VIAL SUBCUT SCH ×2 (09:15→22:29)
[2019-12-29 11:14] LABS: ARTERIAL BLOOD BASE EXCESS 5.5 mmol/L; ARTERIAL BLOOD H2CO3 1.16 mmol/L (1.05-1.35); ARTERIAL BLOOD O2 SATURATION 83.7 % (94-98); ARTERIAL BLOOD PCO2 38.6 mmHg (35-45); ARTERIAL BLOOD PH 7.49 (7.35-7.45); ARTERIAL BLOOD PO2 43.8 mmHg (80-100); ARTERIAL BLOOD TOTAL CO2 30.2 mmol/L (23-27)
[2019-12-29 11:19] LABS: ARTERIAL BLOOD FIO2 100%
--- NOTE | 2019-12-29 11:48 | PDOC CRITICAL CARE PROG REPORT ---
General Date:: 12/29/19 Hospital Day:: 4 Resuscitation Status: Full Code Events in the past 12 to 24 Hours:: Seems not to be either progressing or deteriorating Review of systems relevant to events:: Pulmonary. Reason for ICU Addmission:: Evaluation - Medications: Medications reviewed and adjusted accordingly: Yes Vasopressors:: None Sedation:: None Physical Exam Vital Signs: Temp Pulse Resp BP Pulse Ox 101.0 F H 118 H 52 H 118/81 93 12/29/19 08:00 12/29/19 09:18 12/29/19 09:20 12/29/19 08:00 12/29/19 09:18 Intake & Output 12/28/19 12/29/19 12/30/19 06:59 06:59 06:59 Intake Total 1497 670 Output Total 2250 550 Balance -753 120 Weight 141.6 kg 140.2 kg Weight/Height Weight 140.2 kg Height 6 ft General appearance: PRESENT: no acute distress, cooperative, obese Head exam: PRESENT: atraumatic, normocephalic Eye exam: PRESENT: conjunctiva pink, EOMI, PERRLA. ABSENT: scleral icterus Ear exam: PRESENT: normal external ear exam Mouth exam: PRESENT: moist, tongue midline Neck exam: ABSENT: carotid bruit, JVD, lymphadenopathy, thyromegaly Respiratory exam: PRESENT: clear to auscultation onofre, decreased breath sounds, tachypnea. ABSENT: rales, rhonchi, wheezes Cardiovascular exam: PRESENT: tachycardia GI/Abdominal exam: PRESENT: normal bowel sounds, soft. ABSENT: distended, guarding, mass, organolmegaly, rebound, tenderness Rectal exam: PRESENT: deferred Extremities exam: PRESENT: full ROM. ABSENT: calf tenderness, clubbing, pedal edema Musculoskeletal exam: PRESENT: normal inspection Neurological exam: PRESENT: alert, awake, oriented to person, oriented to place, oriented to time, oriented to situation, CN II-XII grossly intact. ABSENT: motor sensory deficit Skin exam: PRESENT: dry, intact, warm. ABSENT: cyanosis, rash Tubes/Lines: PRESENT: Other - Biap Laboratory/Radiographs Laboratory Results: 12/29/19 05:06 12/29/19 05:06 12/29/19 12/29/19 12/29/19 05:06 05:06 10:58 WBC 7.9 RBC 5.41 Hgb 13.9 Hct 42.5 MCV 79 L MCH 25.6 L MCHC 32.6 RDW 14.7 H Plt Count 249 Carbonic Acid 1.16 HCO3/H2CO3 Ratio 25:1 ABG pH 7.49 H ABG pCO2 38.6 ABG pO2 43.8 L ABG HCO3 29.0 H ABG O2 Saturation 83.7 L ABG Base Excess 5.5 FiO2 100% Sodium 148.0 H Potassium 4.0 Chloride 107 Carbon Dioxide 30 Anion Gap 11 BUN 18 Creatinine 0.76 Est GFR ( Amer) > 60 Glucose 283 H Calcium 8.9 12/25/19 15:34 Troponin I < 0.012 Impressions: Covid-19 PNA All labs, radiographs, diagnostic studies and EKGs were personally reviewed: Yes In addition, reports of radiographic and diagnostic studies were read: Yes Assessment and Plan - Diagnosis (1) Pneumonia due to COVID-19 virus Is this a current diagnosis for this admission?: Yes Plan: At this point his CXR is better slightly. Kaye is not in ARDS. His ABG is mixed venous, His pH is alkalotic. PO2 is 43 by ABG but his saturations are 88-90%. He needs repositioning for his breathing. He is awake, alert, oriented. States his breathing is actually better. Overall he is the same and his treatment in the ICU would be no different. Having said this he is at isk for decompensation. Should he require intubation then an ICVU transfer would be in his interest, Decreased mental status. Sustained hypoxia or difficulty breathing would be indications. Reconsult at that point. Plan Summary: Continue current treatment. ICU and intubation if he further decompensates Critical Time Critical Time (minutes): 40 Level of Care: IMCU Anticipated discharge: Home Anticipated DC Timeframe: Other -: 1. The care of a critical patient is a dynamic process. This note is a sales representative [employer] synopsis but static in nature. The timeframe for treatments given in order is not necessarily the actual time these treatments may have been done. 2. This patient requires critical care secondary to ongoing requirements for therapy not offered or safe outside the critical care environment. Transfer to a lower level of care will result in altered life or limb morbidity and mortality. 3. Multidisciplinary rounds completed. 4. ABCDE bundle addressed.
--- NOTE | 2019-12-29 12:25 | RADIOLOGY REPORT (SQ) ---
EXAM DESCRIPTION: CHEST SINGLE VIEW IMAGES COMPLETED DATE/TIME: 12/29/2019 11:36 am REASON FOR STUDY: respiratory distress COMPARISON: 12/25/2019 EXAM PARAMETERS: NUMBER OF VIEWS: One view. TECHNIQUE: Single frontal radiographic view of the chest acquired. RADIATION DOSE: NA LIMITATIONS: None. FINDINGS: LUNGS AND PLEURA: Low lung volumes. Persistent opacification the left lower lung field. Minimal opacification on the right. MEDIASTINUM AND HILAR STRUCTURES: No masses. Contour normal. HEART AND VASCULAR STRUCTURES: Heart normal in size. Normal vasculature. BONES: No acute findings. HARDWARE: None in the chest. OTHER: No other significant finding. IMPRESSION: Low lung volumes. Cannot exclude bibasilar pneumonia, left more than right. The does a ppear to be slight improvement on the left. TECHNICAL DOCUMENTATION: JOB ID: [id number] 2010 [employer]- All Rights Reserved Reading location - IP/workstation name: [email or web address]
[2019-12-29] MEDS: REMDESIVIR (EUA) 100 MG in NORMAL SALINE 250 ML IV SCH (12:56)
--- NOTE | 2019-12-29 19:05 | PDOC PROGRESS REPORT ---
Subjective Progress Note for:: 12/29/19 Subjective:: CAROLANN TOLLIVER is a 54 year old male with a history of a distant myocardial infarction, hypertension and type 2 diabetes mellitus who presents with increasing weakness, shortness of breath and a nonproductive cough with fever and nausea over the last 1 to 2 days. He was tested at [facility] and was positive for Covid-19 but his illness has progressed and so he presented to the emergency department. He was markedly hypoxic in the field (pulse ox 65% by EMS on room air). As well as tachycardic and tachypneic. Chest x-ray reveals possible bilateral pneumonia. He does not have an elevated white blood cell count however his ferritin and LDH are markedly elevated. C-reactive protein is also elevated at 255. D-dimer is positive but less than 1.0. The patient will be admitted to the hospitalist service. He will get antibiotic therapy as well as the normal supplements for COVID patient's. He will receive dexamethasone IV and will use metered-dose inhaler as opposed to nebulizer therapy at this time. He is currently on CPAP and we will taper this as tolerated. D5 hospital stay 12/29/19. He is seen and examined at bedside. He subjectively reports that his breathing is much better compared to when he came in however his oxygen requirement has not decreased and is still on CPAP 100% FiO2 and respiratory rate of 30s to 40s. O2 saturation between 88 to 91%. He feels fatigue but denies fever or diarrhea. He is currently on day 2 of remdesivir, day 4 of dexamethasone, day 4 ceftriaxone and azithromycin. Repeat chest x-ray showed low lung volumes. With slight improvement on the left in terms of his pneumonia. ICU evaluation was done by Dr. Elias today who recommend close monitoring and ICU transfer if he desaturates below 85% or becomes obtunded. Reason For Visit: COVID 19 PNEUMONIA,ACUTE RESPIRATORY FAILURE WITH Physical Exam Vital Signs: Temp Pulse Resp BP Pulse Ox 97.9 F 105 H 35 H 125/72 90 L 12/29/19 16:00 12/29/19 16:00 12/29/19 16:00 12/29/19 16:00 12/29/19 16:00 Intake & Output 12/28/19 12/29/19 12/30/19 06:59 06:59 06:59 Intake Total 1497 670 250 Output Total 2250 550 Balance -753 120 250 Weight 141.6 kg 140.2 kg General appearance: PRESENT: cooperative, morbidly obese, severe distress Head exam: PRESENT: atraumatic, normocephalic Eye exam: PRESENT: EOMI, PERRLA Mouth exam: PRESENT: moist Neck exam: PRESENT: full ROM Respiratory exam: PRESENT: accessory muscle use, rales, symmetrical, tachypnea Cardiovascular exam: PRESENT: +S1, +S2, tachycardia. ABSENT: systolic murmur Pulses: PRESENT: normal radial pulses GI/Abdominal exam: PRESENT: normal bowel sounds, soft. ABSENT: rebound, tenderness Extremities exam: PRESENT: full ROM Musculoskeletal exam: PRESENT: full ROM Neurological exam: PRESENT: alert, awake, oriented to person, oriented to place, oriented to time Psychiatric exam: PRESENT: normal mood Skin exam: PRESENT: normal color Results Laboratory Results: 12/29/19 05:06 12/29/19 05:06 12/29/19 12/29/19 12/29/19 05:06 05:06 10:58 WBC 7.9 RBC 5.41 Hgb 13.9 Hct 42.5 MCV 79 L MCH 25.6 L MCHC 32.6 RDW 14.7 H Plt Count 249 Carbonic Acid 1.16 HCO3/H2CO3 Ratio 25:1 ABG pH 7.49 H ABG pCO2 38.6 ABG pO2 43.8 L ABG HCO3 29.0 H ABG O2 Saturation 83.7 L ABG Base Excess 5.5 FiO2 100% Sodium 148.0 H Potassium 4.0 Chloride 107 Carbon Dioxide 30 Anion Gap 11 BUN 18 Creatinine 0.76 Est GFR ( Amer) > 60 Glucose 283 H Calcium 8.9 12/25/19 15:34 Troponin I < 0.012 Impressions: Chest X-Ray 12/29/19 00:00 IMPRESSION: Low lung volumes. Cannot exclude bibasilar pneumonia, left more than right. The does appear to be slight improvement on the left. Assessment and Plan - Diagnosis (1) Acute respiratory failure with hypoxemia Is this a current diagnosis for this admission?: Yes Plan: Secondary to COVID Pneumonia -ABG pH 7.49, PCO2 38.6, PO2 43.8 -Chest x-ray slight improvement on the left lung - continue O2 support via CPAP currently 100% FiO2 saturating 88 to 90% -Please call ICU if he becomes obtunded or saturation below 85% (2) Pneumonia due to COVID-19 virus Is this a current diagnosis for this admission?: Yes Plan: -Patient tested positive for COVID 12/17/2009 D-dimer 0.78-> 0.99-> 3.27 Ferritin 1170-> 947 CRP 255-> 90 - continue therapeutic lovenox - continue Remdesivir - S/p COnvalescent plasma - Continue ceft/azithro - continue zinc, vit C, vit D - continue O2 support - neb treatments as needed - CODE Status FULL CODE (3) Type 2 diabetes, uncontrolled, with neuropathy Is this a current diagnosis for this admission?: Yes Plan: A1c 11.4%. Continuing home dose Actos. Glucose remains elevated; consistently >300. Increased to Lantus 26 units every 12. Patient is placed on a consistent carb diet. Accu-Cheks before meals and at bedtime with Humalog for sliding scale coverage. Hypoglycemia protocol in place. Registered dietitian bridge operator consulted. (4) Morbid obesity Is this a current diagnosis for this admission?: Yes Plan: BMI is 42. Lifestyle modification dietary discretion advised. Currently on consistent carb diet. Patient educator and registered dietitian consulted. (5) Tachycardia Is this a current diagnosis for this admission?: Yes Plan: Secondary to respiratory failure and Acute infectious process. Gentle IV fluids. Monitor on telemetry. (6) Tachypnea Is this a current diagnosis for this admission?: Yes Plan: Secondary to respiratory failure. Will monitor. Should resolve as the pneumonia improves. - Time Time Spent with patient: 35 or more minutes Medications reviewed and adjusted accordingly: Yes Anticipated Discharge Disposition: Home, Self Care Anticipated Discharge Timeframe: to be determined
[2019-12-29] MEDS: AZITHROMYCIN 500 MG in DEXTROSE 5%-WATER 250 ML IV SCH (20:09)
[2019-12-29] MEDS: MELATONIN 5 MG TABLET PO SCH (22:28)
[2019-12-29] MEDS: ASPIRIN 81 MG TABLET, ENT COATED PO SCH (22:28)
[2019-12-30] MEDS: ALBUTEROL SULFATE 0.083% NEB 2.5 MG/3 ML AMPUL NEB SCH ×4 (02:11→20:38)
[2019-12-30] MEDS: PANTOPRAZOLE SODIUM 40 MG TABLET.DR PO SCH (05:09)
[2019-12-30 06:40] LABS: HEMATOCRIT 39.9 % (37.9-51.0); HEMOGLOBIN 13.1 g/dL (13.5-17.0); MEAN CORPUSCULAR HEMOGLOBIN 25.6 pg (27.0-33.4); MEAN CORPUSCULAR HGB CONC 32.8 g/dL (32.0-36.0); MEAN CORPUSCULAR VOLUME 78 fl (80-97); PLATELET COUNT 272 10^3/uL (150-450); RED BLOOD COUNT 5.12 10^6/uL (4.35-5.55); RED CELL DISTRIBUTION WIDTH 14.3 % (11.5-14.0); WHITE BLOOD COUNT 8.6 10^3/uL (4.0-10.5)
[2019-12-30 06:55] LABS: ALBUMIN 2.7 g/dL (3.5-5.0); ALKALINE PHOSPHATASE 83 U/L (38-126); ANION GAP 9 (5-19); ASPARTATE AMINO TRANSFERASE 29 U/L (17-59); BILIRUBIN,DIRECT 0.5 mg/dL (0.0-0.4); BILIRUBIN,TOTAL 0.6 mg/dL (0.2-1.3); BLOOD UREA NITROGEN 23 mg/dL (7-20); CALCIUM 8.6 mg/dL (8.4-10.2); CARBON DIOXIDE 29 mmol/L (22-30); CHLORIDE 111 mmol/L (98-107); GLUCOSE 248 mg/dL (75-110); POTASSIUM 4.1 mmol/L (3.6-5.0); TOTAL PROTEIN 6.3 g/dL (6.3-8.2)
[2019-12-30] MEDS ORDERED: GLUCAGON,HUMAN RECOMB 1 MG INJ IM PRN (07:32)
[2019-12-30] MEDS ORDERED: DEXTROSE 50%-WATER 25 GM/50 ML DISP.SYRIN IV PRN ×2 (07:32)
[2019-12-30] MEDS ORDERED: DEXTROSE 40% GEL 15 GM TUBE PO PRN ×2 (07:32)
[2019-12-30 08:22] LABS: APPEARANCE,URINE SLIGHTLY-CLOUDY; BILIRUBIN,URINE NEGATIVE (NEGATIVE); COLOR,URINE AMBER; GLUCOSE, URINE NEGATIVE (NEGATIVE); KETONES,URINE 20 mg/dL (NEGATIVE); LEUKOCYTE ESTERASE,URINE NEGATIVE (NEGATIVE); NITRITE,URINE NEGATIVE (NEGATIVE); PROTEIN,URINE 100 mg/dL (NEGATIVE); URINE SPECIFIC GRAVITY 1.038; UROBILINOGEN,URINE NEGATIVE mg/dL (<2.0)
[2019-12-30] MEDS: INSULIN LISPRO 100 UNIT/ML 3 ML VIAL SUBCUT SCH ×7 (08:24→22:02)
[2019-12-30] MEDS: ASCORBIC ACID 500 MG TABLET PO SCH ×2 (11:38→12:13)
[2019-12-30] MEDS: ZINC SULFATE 220 MG CAPSULE PO SCH ×2 (11:38→12:15)
[2019-12-30] MEDS: PIOGLITAZONE HCL 30 MG TABLET PO SCH ×2 (11:38→12:15)
[2019-12-30] MEDS: ENOXAPARIN SODIUM INJ 150 MG/1 ML DISP.SYRIN SUBCUT SCH ×2 (11:38→22:02)
[2019-12-30] MEDS: REMDESIVIR (EUA) 100 MG in NORMAL SALINE 250 ML IV SCH (11:41)
[2019-12-30] MEDS: INSULIN GLARGINE,HUM.REC.ANLOG 1,000 UNIT/10 ML VIAL SUBCUT SCH ×2 (11:42→22:03)
[2019-12-30] MEDS: DEXAMETHASONE SOD PHOS INJ 10 MG/1 ML VIAL IV SCH (11:43)
[2019-12-30] MEDS: CHOLECALCIFEROL (D3) 1,000 UNIT (25 MCG) TABLET PO SCH ×2 (11:44→12:15)
[2019-12-30] MEDS ORDERED: PHARMACY COMMUNICATION ORDER MC NR (16:45)
[2019-12-30] MEDS ORDERED: GUAIFENESIN SYRP 200 MG/10 ML UDC NG PRN (16:48)
[2019-12-30] MEDS: ASCORBIC ACID 500 MG TABLET NG SCH (17:42)
--- NOTE | 2019-12-30 17:44 | PDOC PROGRESS REPORT ---
Subjective Progress Note for:: 12/30/19 Subjective:: CAROLANN TOLLIVER is a 54 year old male with a history of a distant myocardial infarction, hypertension and type 2 diabetes mellitus who presents with increasing weakness, shortness of breath and a nonproductive cough with fever and nausea over the last 1 to 2 days. He was tested at [facility] and was positive for Covid-19 but his illness has progressed and so he presented to the emergency department. He was markedly hypoxic in the field (pulse ox 65% by EMS on room air). As well as tachycardic and tachypneic. Chest x-ray reveals possible bilateral pneumonia. He does not have an elevated white blood cell count however his ferritin and LDH are markedly elevated. C-reactive protein is also elevated at 255. D-dimer is positive but less than 1.0. The patient will be admitted to the hospitalist service. He will get antibiotic therapy as well as the normal supplements for COVID patient's. He will receive dexamethasone IV and will use metered-dose inhaler as opposed to nebulizer therapy at this time. He is currently on CPAP and we will taper this as tolerated. D5 hospital stay 12/29/19. He is seen and examined at bedside. He subjectively reports that his breathing is much better compared to when he came in however his oxygen requirement has not decreased and is still on CPAP 100% FiO2 and respiratory rate of 30s to 40s. O2 saturation between 88 to 91%. He feels fatigue but denies fever or diarrhea. He is currently on day 2 of remdesivir, day 4 of dexamethasone, day 4 ceftriaxone and azithromycin. Repeat chest x-ray showed low lung volumes. With slight improvement on the left in terms of his pneumonia. ICU evaluation was done by Dr. Elias today who recommend close monitoring and ICU transfer if he desaturates below 85% or becomes obtunded. D6 hospital stay 12/30/19. He was seen and examined at bedside. He says his breathing feels much easier although he is breathing at 50s and still requires 100% FiO2 on CPAP. He looks is still able to answer questions but seems more tired today. Plan for Dobhoff tube today for nutritional support.I spoke to his Girlfriend(?) and updated her of the patients current status. I told her that there is a very high chance that he will need intubation and mechanical ventilation. She was worried and tearful understandably. Reason For Visit: COVID 19 PNEUMONIA,ACUTE RESPIRATORY FAILURE WITH Physical Exam Vital Signs: Temp Pulse Resp BP Pulse Ox 100.6 F H 119 H 49 H 114/70 90 L 12/30/19 15:56 12/30/19 15:56 12/30/19 15:56 12/30/19 15:56 12/30/19 15:56 Intake & Output 12/29/19 12/30/19 12/31/19 06:59 06:59 06:59 Intake Total 670 500 Output Total 550 375 Balance 120 125 Weight 140.2 kg 140.2 kg General appearance: PRESENT: morbidly obese, severe distress Head exam: PRESENT: atraumatic, normocephalic Eye exam: PRESENT: EOMI, PERRLA Mouth exam: PRESENT: moist Neck exam: PRESENT: full ROM Respiratory exam: PRESENT: rales, symmetrical, tachypnea, unlabored Cardiovascular exam: PRESENT: RRR, +S1, +S2 Pulses: PRESENT: +2 pedal pulses bilateral GI/Abdominal exam: PRESENT: normal bowel sounds, soft. ABSENT: rebound, tenderness Extremities exam: PRESENT: full ROM Musculoskeletal exam: PRESENT: full ROM Neurological exam: PRESENT: alert, awake, oriented to person, oriented to place, oriented to time Psychiatric exam: PRESENT: normal mood Skin exam: PRESENT: normal color Results Laboratory Results: 12/30/19 06:00 12/30/19 06:00 12/30/19 12/30/19 12/30/19 06:00 06:00 07:35 WBC 8.6 RBC 5.12 Hgb 13.1 L Hct 39.9 MCV 78 L MCH 25.6 L MCHC 32.8 RDW 14.3 H Plt Count 272 Sodium 149.4 H Potassium 4.1 Chloride 111 H Carbon Dioxide 29 Anion Gap 9 BUN 23 H Creatinine 0.69 Est GFR ( Amer) > 60 Glucose 248 H Calcium 8.6 Total Bilirubin 0.6 AST 29 Alkaline Phosphatase 83 Total Protein 6.3 Albumin 2.7 L Urine Color MARY Urine Appearance SLIGHTLY-CLOUDY Urine pH 6.0 Ur Specific [place] 1.038 Urine Protein 100 H Urine Glucose (UA) NEGATIVE Urine Ketones 20 H Urine Blood SMALL H Urine Nitrite NEGATIVE Ur Leukocyte Esterase NEGATIVE Urine WBC (Auto) 4 Urine RBC (Auto) 160 12/25/19 15:34 Blood Blood Culture - Final NO GROWTH IN 5 DAYS 12/25/19 15:34 Troponin I < 0.012 Impressions: Chest X-Ray 12/29/19 00:00 IMPRESSION: Low lung volumes. Cannot exclude bibasilar pneumonia, left more than right. The does appear to be slight improvement on the left. Assessment and Plan - Diagnosis (1) Acute respiratory failure with hypoxemia Is this a current diagnosis for this admission?: Yes Plan: Secondary to COVID Pneumonia -ABG pH 7.49, PCO2 38.6, PO2 43.8 -Chest x-ray slight improvement on the left lung - continue O2 support via CPAP currently 100% FiO2 saturating 88 to 90% -Please call ICU if he becomes obtunded or saturation below 85% (2) Pneumonia due to COVID-19 virus Is this a current diagnosis for this admission?: Yes Plan: -Patient tested positive for COVID 12/17/2009 D-dimer 0.78-> 0.99-> 3.27 Ferritin 1170-> 947 CRP 255-> 90 - continue therapeutic lovenox - continue Remdesivir - S/p COnvalescent plasma - Continue ceft/azithro - continue zinc, vit C, vit D - continue O2 support - neb treatments as needed - CODE Status FULL CODE (3) Type 2 diabetes, uncontrolled, with neuropathy Is this a current diagnosis for this admission?: Yes Plan: A1c 11.4%. Continuing home dose Actos. Glucose remains elevated; consistently >300. Increased to Lantus 26 units every 12. Accu-Cheks before meals and at bedtime with Humalog for sliding scale coverage. Hypoglycemia protocol in place. Registered dietitian community educator consulted. (4) Morbid obesity Is this a current diagnosis for this admission?: Yes Plan: BMI is 42. Lifestyle modification dietary discretion advised. Currently on consistent carb diet. Patient educator and registered dietitian consulted. (5) Tachycardia Is this a current diagnosis for this admission?: Yes Plan: Secondary to respiratory failure and Acute infectious process. Gentle IV fluids. Monitor on telemetry. (6) Tachypnea Is this a current diagnosis for this admission?: Yes Plan: Secondary to respiratory failure. Will monitor. Should resolve as the pn eumonia improves. (7) Malnutrition Qualifiers: Malnutrition type: unspecified type Qualified Code(s): E46 - Unspecified protein-calorie malnutrition Is this a current diagnosis for this admission?: Yes Plan: - patient has been consistently on BIPAP and has not been able to take anything orally for > 3 days - not on IV fluids as well due to COVID pneumonia and ARDS - Dobhoff tube insertion per IR and dietary consult - Time Time Spent with patient: 35 or more minutes Anticipated Discharge Disposition: Home, Self Care Anticipated Discharge Timeframe: to be determined
[2019-12-30] MEDS: AZITHROMYCIN 500 MG in DEXTROSE 5%-WATER 250 ML IV SCH (20:37)
[2019-12-30] MEDS: ASPIRIN 81 MG TABLET, CHEWABLE NG SCH (22:00)
[2019-12-30] MEDS: MELATONIN 5 MG TABLET NG SCH (22:00)
[2019-12-31] MEDS: INSULIN LISPRO 100 UNIT/ML 3 ML VIAL SUBCUT SCH ×5 (00:30→18:42)
[2019-12-31] MEDS: ALBUTEROL SULFATE 0.083% NEB 2.5 MG/3 ML AMPUL NEB SCH ×4 (02:20→21:03)
[2019-12-31 05:40] LABS: ABSOLUTE BASOPHILS # (AUTO) 0.1 10^3/uL (0.0-0.2); ABSOLUTE LYMPHOCYTES (AUTO) 0.8 10^3/uL (0.5-4.7); ABSOLUTE MONOCYTES (AUTO) 0.5 10^3/uL (0.1-1.4); ABSOLUTE NEUT (AUTO) 9.1 10^3/uL (1.7-8.2); BASOPHILS % (AUTO) 0.5 % (0-2); EOSINOPHILS % (AUTO) 0.1 % (0-6); HEMATOCRIT 42.1 % (37.9-51.0); HEMOGLOBIN 13.9 g/dL (13.5-17.0); MEAN CORPUSCULAR HEMOGLOBIN 25.7 pg (27.0-33.4); MEAN CORPUSCULAR HGB CONC 32.9 g/dL (32.0-36.0); MEAN CORPUSCULAR VOLUME 78 fl (80-97); MONOCYTES % (AUTO) 4.4 % (3-13); PLATELET COUNT 290 10^3/uL (150-450); RED BLOOD COUNT 5.39 10^6/uL (4.35-5.55); RED CELL DISTRIBUTION WIDTH 14.6 % (11.5-14.0); TOTAL CELLS COUNTED % (AUTO) 100 %; WHITE BLOOD COUNT 10.4 10^3/uL (4.0-10.5)
[2019-12-31] MEDS ORDERED: PANTOPRAZOLE SODIUM 40 MG PACKET.DR NG SCH (06:00)
[2019-12-31 06:11] LABS: ALBUMIN 2.6 g/dL (3.5-5.0); ALKALINE PHOSPHATASE 99 U/L (38-126); ANION GAP 8 (5-19); ASPARTATE AMINO TRANSFERASE 32 U/L (17-59); BILIRUBIN,DIRECT 0.3 mg/dL (0.0-0.4); BILIRUBIN,TOTAL 0.6 mg/dL (0.2-1.3); BLOOD UREA NITROGEN 28 mg/dL (7-20); CALCIUM 8.4 mg/dL (8.4-10.2); CARBON DIOXIDE 30 mmol/L (22-30); CHLORIDE 115 mmol/L (98-107); GLUCOSE 168 mg/dL (75-110); TOTAL PROTEIN 6.2 g/dL (6.3-8.2)
--- NOTE | 2019-12-31 08:30 | RADIOLOGY REPORT (SQ) ---
EXAM DESCRIPTION: CHEST SINGLE VIEW IMAGES COMPLETED DATE/TIME: 12/31/2019 8:19 am REASON FOR STUDY: COVID pneumonia COMPARISON: 12/29/2019. EXAM PARAMETERS: NUMBER OF VIEWS: One view. TECHNIQUE: Single frontal radiographic view of the chest acquired. RADIATION DOSE: NA LIMITATIONS: None. FINDINGS: LUNGS AND PLEURA: Diffuse bilateral indistinct airspace disease. Possible small right ple ural effusion. MEDIASTINUM AND HILAR STRUCTURES: No masses. Contour normal. HEART AND VASCULAR STRUCTURES: Heart normal in size. Normal vasculature. BONES: No acute findings. Degenerative changes in the spine. HARDWARE: None in the chest. OTHER: No other significant finding. IMPRESSION: DIFFUSE BILATERAL FAINT INFILTRATES. NO SIGNIFICANT INTERVAL CHANGE. TECHNICAL DOCUMENTATION: JOB ID: [id number] 2010 [employer]- All Rights Reserved Reading location - IP/workstation name: [email or web address]
[2019-12-31 08:36] LABS: ARTERIAL BLOOD BASE EXCESS 5.8 mmol/L; ARTERIAL BLOOD H2CO3 1.17 mmol/L (1.05-1.35); ARTERIAL BLOOD HCO3 29.3 mmol/L (20-24); ARTERIAL BLOOD O2 SATURATION 93.2 % (94-98); ARTERIAL BLOOD PCO2 38.9 mmHg (35-45); ARTERIAL BLOOD PO2 60.9 mmHg (80-100); ARTERIAL BLOOD TOTAL CO2 30.5 mmol/L (23-27)
[2019-12-31 08:40] LABS: ARTERIAL BLOOD FIO2 100%
[2019-12-31] MEDS: ENOXAPARIN SODIUM INJ 150 MG/1 ML DISP.SYRIN SUBCUT SCH ×2 (09:20→21:28)
[2019-12-31] MEDS: ZINC SULFATE 220 MG CAPSULE NG SCH (09:22)
[2019-12-31] MEDS: CHOLECALCIFEROL (D3) 1,000 UNIT (25 MCG) TABLET NG SCH (09:23)
[2019-12-31] MEDS: ASCORBIC ACID 500 MG TABLET NG SCH ×3 (09:23→18:51)
[2019-12-31] MEDS: INSULIN GLARGINE,HUM.REC.ANLOG 1,000 UNIT/10 ML VIAL SUBCUT SCH ×2 (09:23→21:56)
[2019-12-31] MEDS: DEXAMETHASONE SOD PHOS INJ 10 MG/1 ML VIAL IV SCH (09:23)
[2019-12-31] MEDS: DEXTROSE 5%-1/2 NORMAL SALINE 1,000 ML IV PRN ×2 (09:30→21:33)
[2019-12-31] MEDS ORDERED: PIOGLITAZONE HCL 30 MG TABLET NG SCH (10:00)
--- NOTE | 2019-12-31 11:29 | RADIOLOGY REPORT (SQ) ---
EXAM DESCRIPTION: PICC INSERTION IMAGES COMPLETED DATE/TIME: 12/31/2019 11:15 am REASON FOR STUDY: for tpn COMPARISON: None. FLUOROSCOPY TIME: 1.08 minutes 1 images saved to PACS. TECHNIQUE: Fluoroscopic and ultrasound guided PICC placement. LIMITATIONS: None. PROCEDURE: After written consent and assessment were obtained, the patient was brought into the fluo roscopy room and placed supine on the table. Ultrasound evaluation of potential access sites were per formed. After successfully identifying a patent right upper arm brachiocephalic vein, the right arm w as prepped and draped in a sterile fashion along with the ultrasound probe. The entry site was anesth etized with 1% lidocaine. A 21 gauge 7 cm needle was advanced through the skin and into the brachioce phalic vein under live ultrasound guidance. An ultrasound image was saved to PACS confirming access site. A .018 guide wire was then inserted through the needle and into the venous system. The needle was then removed and an 11 blade scalpel was used to make a 1cm skin incision. A 5 fr peel-away skinner th was advanced over the wire and into the venous system. A measurement was then made using the exist ing wire and live fluoroscopic guidance. The wire was then removed and trimmed. The PICC was advanced through the peel-away sheath and into the venous system. The peel-away sheath was removed and the ca theter was adhered to the patients arm with a stat lock. The catheter was then aspirated and flushed and a sterile bandage was placed over the access site. A fluoroscopic spot image was saved to PACS c onfirming the catheter tip within the SVC. IMPRESSION: SUCCESSFUL PLACEMENT OF A 5 FR DUAL LUMEN 43 CM PICC IN THE RIGHT BRACHIOCEPHALIC VEIN. COMMENT: Patient medication list reviewed: Yes- Quality ID# 130:Eligible professional attests to doc umenting in the medical record they obtained, updated, or reviewed the patient's current medications. . Quality ID 145: Final reports for procedures using fluoroscopy that document radiation exposure zen cruz, or exposure time and number of fluorographic images (if radiation exposure indices are not avail able) Quality ID #76: The patient was prepped and draped using maximum sterile barrier technique including cap, mask, sterile gown, sterile gloves, a large sterile sheet, hand hygiene, and 2% Chlorhexidine fo r cutaneous antisepsis. When ultrasound is used, sterile ultrasound techniques are followed requiring sterile gel and sterile probes. TECHNICAL DOCUMENTATION: JOB ID: [id number] 2010 [employer]- All Rights Reserved rev-08/02 Reading location - IP/workstation name: [id number]
--- NOTE | 2019-12-31 13:28 | PDOC PROGRESS REPORT ---
Subjective Progress Note for:: 12/31/19 Subjective:: CAROLANN TOLLIVER is a 54 year old male with a history of a distant myocardial infarction, hypertension and type 2 diabetes mellitus who presents with increasing weakness, shortness of breath and a nonproductive cough with fever and nausea over the last 1 to 2 days. He was tested at [facility] and was positive for Covid-19 but his illness has progressed and so he presented to the emergency department. He was markedly hypoxic in the field (pulse ox 65% by EMS on room air). As well as tachycardic and tachypneic. Chest x-ray reveals possible bilateral pneumonia. He does not have an elevated white blood cell count however his ferritin and LDH are markedly elevated. C-reactive protein is also elevated at 255. D-dimer is positive but less than 1.0. The patient will be admitted to the hospitalist service. He will get antibiotic therapy as well as the normal supplements for COVID patient's. He will receive dexamethasone IV and will use metered-dose inhaler as opposed to nebulizer therapy at this time. He is currently on CPAP and we will taper this as tolerated. D5 hospital stay 12/29/19. He is seen and examined at bedside. He subjectively reports that his breathing is much better compared to when he came in however his oxygen requirement has not decreased and is still on CPAP 100% FiO2 and respiratory rate of 30s to 40s. O2 saturation between 88 to 91%. He feels fatigue but denies fever or diarrhea. He is currently on day 2 of remdesivir, day 4 of dexamethasone, day 4 ceftriaxone and azithromycin. Repeat chest x-ray showed low lung volumes. With slight improvement on the left in terms of his pneumonia. ICU evaluation was done by Dr. Elias today who recommend close monitoring and ICU transfer if he desaturates below 85% or becomes obtunded. D6 hospital stay 12/30/19. He was seen and examined at bedside. He says his breathing feels much easier although he is breathing at 50s and still requires 100% FiO2 on CPAP. He looks is still able to answer questions but seems more tired today. Plan for Dobhoff tube today for nutritional support.I spoke to his Girlfriend(?) and updated her of the patients current status. I told her that there is a very high chance that he will need intubation and mechanical ventilation. She was worried and tearful understandably. D7 hospital stay 12/31/19. He was seen and examined at bedside. He is still on CPAP 100% RR 40s, sats 89%. He thinks his breathing is about the same as yester day. Repeat ABG showed pO2 60.9. CXR no significant change. Sodium noted to be high today 153 likely due to dehydration as he has not eaten anything for 3 days now. He was started on D5 half normal, PICC line inserted and would be started on TPN. Reason For Visit: COVID 19 PNEUMONIA,ACUTE RESPIRATORY FAILURE WITH Physical Exam Vital Signs: Temp Pulse Resp BP Pulse Ox 98.3 F 120 H 56 H 118/82 89 L 12/31/19 11:34 12/31/19 11:34 12/31/19 12:30 12/31/19 11:34 12/31/19 12:30 Intake & Output 12/30/19 12/31/19 01/01/20 06:59 06:59 06:59 Intake Total 500 500 Output Total 375 500 Balance 125 0 Weight 140.2 kg 137.4 kg 137.4 kg General appearance: PRESENT: cooperative, morbidly obese, severe distress Head exam: PRESENT: atraumatic, normocephalic Eye exam: PRESENT: EOMI, PERRLA Mouth exam: PRESENT: moist Neck exam: PRESENT: full ROM Cardiovascular exam: PRESENT: RRR, +S1, +S2 Pulses: PRESENT: +2 pedal pulses bilateral Vascular exam: PRESENT: normal capillary refill GI/Abdominal exam: PRESENT: normal bowel sounds, soft. ABSENT: rebound, tenderness Extremities exam: PRESENT: full ROM Musculoskeletal exam: PRESENT: full ROM Neurological exam: PRESENT: alert, awake, oriented to person, oriented to place, oriented to time Psychiatric exam: PRESENT: normal mood Skin exam: PRESENT: normal color Results Laboratory Results: 12/31/19 05:27 12/31/19 05:27 12/31/19 12/31/19 12/31/19 05:27 05:27 08:24 WBC 10.4 RBC 5.39 Hgb 13.9 Hct 42.1 MCV 78 L MCH 25.7 L MCHC 32.9 RDW 14.6 H Plt Count 290 Seg Neutrophils % 87.0 H Carbonic Acid 1.17 HCO3/H2CO3 Ratio 25:1 ABG pH 7.50 H ABG pCO2 38.9 ABG pO2 60.9 L ABG HCO3 29.3 H ABG O2 Saturation 93.2 L ABG Base Excess 5.8 FiO2 100% Sodium 153.2 H Potassium 4.0 Chloride 115 H Carbon Dioxide 30 Anion Gap 8 BUN 28 H Creatinine 0.82 Est GFR ( Amer) > 60 Glucose 168 H Calcium 8.4 Total Bilirubin 0.6 AST 32 Alkaline Phosphatase 99 Total Protein 6.2 L Albumin 2.6 L 12/25/19 17:11 Blood Blood Culture - Final NO GROWTH IN 5 DAYS 12/25/19 15:34 Blood Blood Culture - Final NO GROWTH IN 5 DAYS 12/25/19 15:34 Troponin I < 0.012 Impressions: Chest X-Ray 12/31/19 00:00 IMPRESSION: DIFFUSE BILATERAL FAINT INFILTRATES. NO SIGNIFICANT INTERVAL CHANGE. PICC Line Insertion 12/31/19 00:00 IMPRESSION: SUCCESSFUL PLACEMENT OF A 5 FR DUAL LUMEN 43 CM PICC IN THE RIGHT BRACHIOCEPHALIC VEIN. Assessment and Plan - Diagnosis (1) Acute respiratory failure with hypoxemia Is this a current diagnosis for this admission?: Yes Plan: Secondary to COVID Pneumonia -ABG pH 7.5, PCO2 38.9, PO2 60.9 -Chest x-ray 12/30 no significant change - continue O2 support via CPAP currently 100% FiO2 saturating 88 to 90% -Please call ICU if he becomes obtunded or saturation below 85% (2) Pneumonia due to COVID-19 virus Is this a current diagnosis for this admission?: Yes Plan: -Patient tested positive for COVID 12/17/2009 D-dimer 0.78-> 0.99-> 3.27 Ferritin 1170-> 947 CRP 255-> 90 - continue therapeutic lovenox - continue Remdesivir d4 - S/p COnvalescent plasma - Continue ceft/azithro - continue zinc, vit C, vit D - continue O2 support - neb treatments as needed - will trial Proning but with his obesity I highly doubt if he'll be able to tolerate it - may need intubation soon as he is not improving - CODE Status FULL CODE (3) Type 2 diabetes, uncontrolled, with neuropathy Is this a current diagnosis for this admission?: Yes Plan: A1c 11.4%. Continuing home dose Actos. Glucose remains elevated; consistently >300. Increased to Lantus 26 units every 12. Accu-Cheks before meals and at bedtime with Humalog for sliding scale coverage. Hypoglycemia protocol in place. Registered dietitian visual educator consulted. (4) Morbid obesity Is this a current diagnosis for this admission?: Yes Plan: BMI is 42. Lifestyle modification dietary discretion advised. Currently on consistent carb diet. Patient educator and registered dietitian consulted. (5) Tachycardia Is this a current diagnosis for this admission?: Yes Plan: Secondary to respiratory failure and Acute infectious process. Gentle IV fluids. Monitor on telemetry. (6) Tachypnea Is this a current diagnosis for this admission?: Yes Plan: Secondary to respiratory failure. Will monitor. Should resolve as the pneumonia improves. (7) Malnutrition Qualifiers: Malnutrition type: unspecified type Qualified Code(s): E46 - Unspecified protein-calorie malnutrition Is this a current diagnosis for this admission?: Yes Plan: - patient has been consistently on BIPAP and has not been able to take anything orally for > 3 days - PICC line inserted. Will order TPN (8) Hypernatremia Is this a current diagnosis for this admission?: Yes Plan: - Na 153 secondary to dehydration from poor oral intake - started on D5Half normal saline - will monitor - Time Time Spent with patient: 25-34 minutes Medications reviewed and adjusted accordingly: Yes Anticipated Discharge Disposition: to be determined Anticipated Discharge Timeframe: to be determined
[2019-12-31] MEDS ORDERED: DEXTROSE 10%-WATER 1,000 ML IV PRN (13:58)
[2019-12-31] MEDS ORDERED: DEXTROSE 50%-WATER 25 GM/50 ML DISP.SYRIN IV PRN ×2 (13:58)
[2019-12-31] MEDS ORDERED: DEXTROSE 40% GEL 15 GM TUBE PO PRN ×2 (13:58)
[2019-12-31] MEDS ORDERED: GLUCAGON,HUMAN RECOMB 1 MG INJ IM PRN (13:58)
[2019-12-31] MEDS: REMDESIVIR (EUA) 100 MG in NORMAL SALINE 250 ML IV SCH (15:27)
[2019-12-31] MEDS ORDERED: INSULIN REG, HUMAN 100 UNIT/ML 3 ML VIAL SUBCUT SCH (18:00)
[2019-12-31 18:20] LABS: HEMATOCRIT 42.4 % (37.9-51.0); HEMOGLOBIN 13.3 g/dL (13.5-17.0); MEAN CORPUSCULAR HEMOGLOBIN 24.9 pg (27.0-33.4); MEAN CORPUSCULAR HGB CONC 31.4 g/dL (32.0-36.0); MEAN CORPUSCULAR VOLUME 79 fl (80-97); PLATELET COUNT 323 10^3/uL (150-450); RED BLOOD COUNT 5.34 10^6/uL (4.35-5.55); RED CELL DISTRIBUTION WIDTH 14.8 % (11.5-14.0); WHITE BLOOD COUNT 11.4 10^3/uL (4.0-10.5)
[2019-12-31 18:37] LABS: INTERNATIONAL RATION (INR) 1.37
[2019-12-31] MEDS ORDERED: INSULIN REG, HUMAN 100 UNIT/ML 3 ML VIAL (PYX) SUBCUT ONE (19:00)
[2019-12-31] MEDS: ASPIRIN 81 MG TABLET, CHEWABLE NG SCH (21:17)
[2019-12-31] MEDS: MELATONIN 5 MG TABLET NG SCH (21:18)
[2019-12-31] MEDS ORDERED: INSULIN GLARGINE,HUM.REC.ANLOG 1,000 UNIT/10 ML VIAL (PYX) SUBCUT ONE (21:25)
[2019-12-31] MEDS: AZITHROMYCIN 500 MG in DEXTROSE 5%-WATER 250 ML IV SCH (21:28)
[2020-01-01] MEDS: AMINO ACIDS 5 %/DEXTROSE 20 % 1,000 ML IV PRN (00:27)
[2020-01-01] MEDS: INSULIN REG, HUMAN 100 UNIT/ML 3 ML VIAL (PYX) SUBCUT SCH ×4 (00:59→18:07)
[2020-01-01] MEDS: INSULIN LISPRO 100 UNIT/ML 3 ML VIAL SUBCUT SCH ×2 (00:59→05:57)
[2020-01-01] MEDS: ALBUTEROL SULFATE 0.083% NEB 2.5 MG/3 ML AMPUL NEB SCH ×4 (02:27→21:13)
[2020-01-01 06:15] LABS: APPEARANCE,URINE CLEAR; BILIRUBIN,URINE NEGATIVE (NEGATIVE); COLOR,URINE YELLOW; GLUCOSE, URINE >=500 mg/dL (NEGATIVE); KETONES,URINE TRACE mg/dL (NEGATIVE); LEUKOCYTE ESTERASE,URINE NEGATIVE (NEGATIVE); NITRITE,URINE NEGATIVE (NEGATIVE); PROTEIN,URINE 100 mg/dL (NEGATIVE); URINE SPECIFIC GRAVITY 1.032; UROBILINOGEN,URINE NEGATIVE mg/dL (<2.0)
[2020-01-01] MEDS: CHOLECALCIFEROL (D3) 1,000 UNIT (25 MCG) TABLET NG SCH (09:45)
[2020-01-01] MEDS: ASCORBIC ACID 500 MG TABLET NG SCH ×2 (09:45→18:07)
[2020-01-01] MEDS: ZINC SULFATE 220 MG CAPSULE NG SCH (09:46)
[2020-01-01] MEDS: DEXAMETHASONE SOD PHOS INJ 10 MG/1 ML VIAL IV SCH (09:46)
[2020-01-01] MEDS: ENOXAPARIN SODIUM INJ 150 MG/1 ML DISP.SYRIN SUBCUT SCH ×2 (09:47→23:50)
[2020-01-01] MEDS: INSULIN GLARGINE,HUM.REC.ANLOG 1,000 UNIT/10 ML VIAL SUBCUT SCH (09:47)
[2020-01-01 10:06] LABS: ABSOLUTE LYMPHOCYTES (AUTO) 0.8 10^3/uL (0.5-4.7); ABSOLUTE MONOCYTES (AUTO) 0.5 10^3/uL (0.1-1.4); ABSOLUTE NEUT (AUTO) 10.7 10^3/uL (1.7-8.2); BASOPHILS % (AUTO) 0.4 % (0-2); EOSINOPHILS % (AUTO) 0.1 % (0-6); HEMATOCRIT 42.4 % (37.9-51.0); HEMOGLOBIN 13.4 g/dL (13.5-17.0); LYMPHOCYTES % (AUTO) 6.3 % (13-45); MEAN CORPUSCULAR HEMOGLOBIN 25.2 pg (27.0-33.4); MEAN CORPUSCULAR HGB CONC 31.5 g/dL (32.0-36.0); MEAN CORPUSCULAR VOLUME 80 fl (80-97); MONOCYTES % (AUTO) 3.9 % (3-13); PLATELET COUNT 326 10^3/uL (150-450); RED BLOOD COUNT 5.31 10^6/uL (4.35-5.55); RED CELL DISTRIBUTION WIDTH 14.6 % (11.5-14.0); SEGMENTED NEUTROPHILS % (AUTO) 89.3 % (42-78); TOTAL CELLS COUNTED % (AUTO) 100 %
[2020-01-01 11:16] LABS: ALBUMIN 2.6 g/dL (3.5-5.0); ALKALINE PHOSPHATASE 120 U/L (38-126); ANION GAP 6 (5-19); ASPARTATE AMINO TRANSFERASE 28 U/L (17-59); BILIRUBIN,DIRECT 0.4 mg/dL (0.0-0.4); BILIRUBIN,TOTAL 0.6 mg/dL (0.2-1.3); BLOOD UREA NITROGEN 28 mg/dL (7-20); CALCIUM 8.4 mg/dL (8.4-10.2); CARBON DIOXIDE 32 mmol/L (22-30); CHLORIDE 116 mmol/L (98-107); GLUCOSE 349 mg/dL (75-110); POTASSIUM 4.1 mmol/L (3.6-5.0); TOTAL PROTEIN 6.4 g/dL (6.3-8.2)
[2020-01-01] MEDS ORDERED: DEXTROSE 5%-WATER 1000 ML 1,000 ML IV PRN (12:04)
[2020-01-01] MEDS ORDERED: MORPHINE SULFATE 10 MG/ML INJ IV ONE (12:09)
--- NOTE | 2020-01-01 12:18 | PDOC PROGRESS REPORT ---
Subjective Progress Note for:: 01/01/20 Subjective:: CAROLANN TOLLIVER is a 54 year old male with a history of a distant myocardial infarction, hypertension and type 2 diabetes mellitus who presents with increasing weakness, shortness of breath and a nonproductive cough with fever and nausea over the last 1 to 2 days. He was tested at [facility] and was positive for Covid-19 but his illness has progressed and so he presented to the emergency department. He was markedly hypoxic in the field (pulse ox 65% by EMS on room air). As well as tachycardic and tachypneic. Chest x-ray reveals possible bilateral pneumonia. He does not have an elevated white blood cell count however his ferritin and LDH are markedly elevated. C-reactive protein is also elevated at 255. D-dimer is positive but less than 1.0. The patient will be admitted to the hospitalist service. He will get antibiotic therapy as well as the normal supplements for COVID patient's. He will receive dexamethasone IV and will use metered-dose inhaler as opposed to nebulizer therapy at this time. He is currently on CPAP and we will taper this as tolerated. D5 hospital stay 12/29/19. He is seen and examined at bedside. He subjectively reports that his breathing is much better compared to when he came in however his oxygen requirement has not decreased and is still on CPAP 100% FiO2 and respiratory rate of 30s to 40s. O2 saturation between 88 to 91%. He feels fatigue but denies fever or diarrhea. He is currently on day 2 of remdesivir, day 4 of dexamethasone, day 4 ceftriaxone and azithromycin. Repeat chest x-ray showed low lung volumes. With slight improvement on the left in terms of his pneumonia. ICU evaluation was done by Dr. Elias today who recommend close monitoring and ICU transfer if he desaturates below 85% or becomes obtunded. D6 hospital stay 12/30/19. He was seen and examined at bedside. He says his breathing feels much easier although he is breathing at 50s and still requires 100% FiO2 on CPAP. He looks is still able to answer questions but seems more tired today. Plan for Dobhoff tube today for nutritional support.I spoke to his Girlfriend(?) and updated her of the patients current status. I told her that there is a very high chance that he will need intubation and mechanical ventilation. She was worried and tearful understandably. D7 hospital stay 12/31/19. He was seen and examined at bedside. He is still on CPAP 100% RR 40s, sats 89%. He thinks his breathing is about the same as yester day. Repeat ABG showed pO2 60.9. CXR no significant change. Sodium noted to be high today 153 likely due to dehydration as he has not eaten anything for 3 days now. He was started on D5 half normal, PICC line inserted and would be started on TPN. D8 hospital stay. 01/01/20. He was seen and examined at bedside. He appears to be more awake and interactive today. He wanted to try the HFNC but felt short of breath after a few seconds and had to be put back on bipap. Currently on TPN for nutrition and D5 water for hypernatremia. He has finished his remdesivir course still on dexamethasone and azithro. Subjectively he reports that his breathing is better but still on 100% FIO2, HR 115, RR 40s. Reason For Visit: COVID 19 PNEUMONIA,ACUTE RESPIRATORY FAILURE WITH Physical Exam Vital Signs: Temp Pulse Resp BP Pulse Ox 98.0 F 115 H 46 H 112/76 93 01/01/20 10:00 01/01/20 08:04 01/01/20 08:04 01/01/20 07:48 01/01/20 08:04 Intake & Output 12/31/19 01/01/20 01/02/20 06:59 06:59 06:59 Intake Total 500 1879 Output Total 500 800 Balance 0 1079 Weight 137.4 kg 137.4 kg General appearance: PRESENT: cooperative, morbidly obese, severe distress Head exam: PRESENT: atraumatic, normocephalic Eye exam: PRESENT: EOMI, PERRLA Mouth exam: PRESENT: moist Neck exam: PRESENT: full ROM Respiratory exam: PRESENT: rales, symmetrical, tachypnea Cardiovascular exam: PRESENT: +S1, +S2, tachycardia Pulses: PRESENT: +2 pedal pulses bilateral GI/Abdominal exam: PRESENT: normal bowel sounds, soft. ABSENT: rebound, tenderness Extremities exam: PRESENT: full ROM Musculoskeletal exam: PRESENT: full ROM Neurological exam: PRESENT: alert, awake, oriented to person, oriented to place, oriented to time Psychiatric exam: PRESENT: anxious Skin exam: PRESENT: normal color Results Laboratory Results: 01/01/20:00 01/01/20 08:40 12/31/19 12/31/19 01/01/20 17:50 17:50 06:15 WBC 11.4 H RBC 5.34 Hgb 13.3 L Hct 42.4 MCV 79 L MCH 24.9 L MCHC 31.4 L RDW 14.8 H Plt Count 323 Seg Neutrophils % Sodium Potassium Chloride Carbon Dioxide Anion Gap BUN Creatinine Est GFR ( Amer) Glucose Calcium Magnesium 3.0 H Total Bilirubin AST Alkaline Phosphatase Total Protein Albumin Triglycerides 118 Urine Color YELLOW Urine Appearance CLEAR Urine pH 5.0 Ur Specific [place] 1.032 Urine Protein 100 H Urine Glucose (UA) >=500 H Urine Ketones TRACE H Urine Blood NEGATIVE Urine Nitrite NEGATIVE Ur Leukocyte Esterase NEGATIVE Urine WBC (Auto) 1 Urine RBC (Auto) 3 01/01/20 01/01/20 08:40 10:00 WBC 12.0 H RBC 5.31 Hgb 13.4 L Hct 42.4 MCV 80 MCH 25.2 L MCHC 31.5 L RDW 14.6 H Plt Count 326 Seg Neutrophils % 89.3 H Sodium 153.8 H Potassium 4.1 Chloride 116 H Carbon Dioxide 32 H Anion Gap 6 BUN 28 H Creatinine 0.84 Est GFR ( Amer) > 60 Glucose 349 H Calcium 8.4 Magnesium Total Bilirubin 0.6 AST 28 Alkaline Phosphatase 120 Total Protein 6.4 Albumin 2.6 L Triglycerides Urine Color Urine Appearance Urine pH Ur Specific [place] Urine Protein Urine Glucose (UA) Urine Ketones Urine Blood Urine Nitrite Ur Leukocyte Esterase Urine WBC (Auto) Urine RBC (Auto) 12/25/19 15:34 Troponin I < 0.012 Impressions: Chest X-Ray 12/31/19 00:00 IMPRESSION: DIFFUSE BILATERAL FAINT INFILTRATES. NO SIGNIFICANT INTERVAL CHANGE. PICC Line Insertion 12/31/19 00:00 IMPRESSION: SUCCESSFUL PLACEMENT OF A 5 FR DUAL LUMEN 43 CM PICC IN THE RIGHT BRACHIOCEPHALIC VEIN. Assessment and Plan - Diagnosis (1) Acute respiratory failure with hypoxemia Is this a current diagnosis for this admission?: Yes Plan: Secondary to COVID Pneumonia -ABG pH 7.5, PCO2 38.9, PO2 60.9 -Chest x-ray 12/30 no significant change - continue O2 support via CPAP currently 100% FiO2 saturating 88 to 90% - unable to tolerate prone positioning due to body habitus but semi proning seems to help his O2 sat a small bit. -Please call ICU if he becomes obtunded or saturation below 85% (2) Pneumonia due to COVID-19 virus Is this a current diagnosis for this admission?: Yes Plan: -Patient tested positive for COVID 12/17/2009 D-dimer 0.78-> 0.99-> 3.27 Ferritin 1170-> 947 CRP 255-> 90 - continue therapeutic lovenox - completed remdesivir - S/p COnvalescent plasma -completed abx 7 dasy. no growth on cultures - continue zinc, vit C, vit D - continue O2 support - neb treatments as needed - will trial Proning but with his obesity I highly doubt if he'll be able to tolerate it - may need intubation soon as he is not improving - CODE Status FULL CODE (3) Type 2 diabetes, uncontrolled, with neuropathy Is this a current diagnosis for this admission?: Yes Plan: A1c 11.4%. Continuing home dose Actos. Glucose remains elevated; consistently >300. Increased to Lantus 30 units every 12. scheduled humalog 12 u q6 Accu-Cheks before meals and at bedtime with Humalog for sliding scale coverage. Hypoglycemia protocol in place. Registered dietitian parent educator consulted. (4) Morbid obesity Is this a current diagnosis for this admission?: Yes Plan: BMI is 42. Lifestyle modification dietary discretion advised. Currently on consistent carb diet. Patient educator and registered dietitian consulted. (5) Tachycardia Is this a current diagnosis for this admission?: Yes Plan: Secondary to respiratory failure and Acute infectious process. started on low dose lopressor daily Gentle IV fluids. Monitor on telemetry. (6) Tachypnea Is this a current diagnosis for this admission?: Yes Plan: Secondary to respiratory failure. Will monitor. Should resolve as the pneumonia improves. (7) Malnutrition Qualifiers: Malnutrition type: unspecified type Qualified Code(s): E46 - Unspecified protein-calorie malnutrition Is this a current diagnosis for this admission?: Yes Plan: - patient has been consistently on BIPAP and has not been able to take anything orally for > 3 days - TPN via PICC line (8) Hypernatremia Is this a current diagnosis for this admission?: Yes Plan: - Na 153>153.8 secondary to dehydration from poor oral intake - switched to D5 water - will monitor - Time Time Spent with patient: 35 or more minutes Anticipated Discharge Disposition: Home, Self Care Anticipated Discharge Timeframe: to be determined
[2020-01-01] MEDS ORDERED: FUROSEMIDE INJ/PF 40 MG/4 ML SDV IV ONE (15:01)
[2020-01-01] MEDS ORDERED: FUROSEMIDE INJ/PF 100 MG/10 ML SDV ONE (15:10)
[2020-01-01] MEDS ORDERED: PROPOFOL 1,000 MG/100 ML INFUS..BTL IV ONE ×2 (15:23→19:02)
[2020-01-01] MEDS ORDERED: ETOMIDATE INJ/PF 20 MG/10 ML SDV IV ONE (15:23)
[2020-01-01 15:26] LABS: ARTERIAL BLOOD BASE EXCESS -0.7 mmol/L; ARTERIAL BLOOD H2CO3 1.36 mmol/L (1.05-1.35); ARTERIAL BLOOD HCO3 25.1 mmol/L (20-24); ARTERIAL BLOOD O2 SATURATION 68.7 % (94-98); ARTERIAL BLOOD PCO2 45.2 mmHg (35-45); ARTERIAL BLOOD PH 7.36 (7.35-7.45); ARTERIAL BLOOD TOTAL CO2 26.5 mmol/L (23-27)
[2020-01-01 15:27] LABS: ARTERIAL BLOOD FIO2 100%
[2020-01-01 15:29] LABS: ARTERIAL BLOOD PO2 37.3 mmHg (80-100)
[2020-01-01] MEDS ORDERED: ATROPINE SULFATE INJ 1 MG/1 ML VIAL ONE (15:56)
[2020-01-01] MEDS ORDERED: DEXTROSE 40% GEL 15 GM TUBE PO PRN ×4 (16:36→19:59)
[2020-01-01] MEDS ORDERED: DEXTROSE 50%-WATER 25 GM/50 ML DISP.SYRIN IV PRN ×4 (16:36→19:59)
[2020-01-01] MEDS ORDERED: PROPOFOL 1,000 MG/100 ML INFUS..BTL IV PRN (16:36)
[2020-01-01] MEDS ORDERED: GLUCAGON,HUMAN RECOMB 1 MG INJ SUBCUT PRN (16:36)
[2020-01-01] MEDS ORDERED: HYDROMORPHONE HCL INJ/PF 2 MG/ML AMPULE IV PRN (16:43)
[2020-01-01] MEDS ORDERED: PHARMACY COMMUNICATION ORDER MC NR (16:45)
--- NOTE | 2020-01-01 16:49 | Operative Report ---
Nonrecallable Operative Report DATE OF SURGERY: 01/01/20 PREOPERATIVE DIAGNOSIS: Respiratory failure POSTOPERATIVE DIAGNOSIS: Respiratory failure OPERATION: Emergency cricothyrotomy SURGEON: KAVON SALAMANCA ANESTHESIA: Other TISSUE REMOVED OR ALTERED: None COMPLICATIONS: None ESTIMATED BLOOD LOSS: 5 cc INTRAOPERATIVE FINDINGS: See note PROCEDURE: This is a 54-year-old male who is in extremis in the intensive care unit with positive COVID pneumonia in severe distress with O2 saturation in the 30 to 40% range. Being bagged by the fish cleaner machine tender unable to place a endotracheal tube patient was morbidly obese Because of the situation I was called into the intensive care unit by the fish cleaner machine tender for a possible tracheostomy placement. The patient had a low blood pressure in the 70 systolic range with O2 saturation in the 20 to 30% range when I arrived in the room. Patient was laid flat while being bagged by the fish cleaner machine tender a 10 scalpel blade was utilized to make an incision directly over the cricothyroid membrane. Dissection was carried down through subtenons tissue with Metzenbaum scissors the cricothyroid membrane was pierced with the scissors and a 7 Latvian endotracheal tube was placed in to the trachea. It was attached to the Ambu bag at first and then the respirator secondly with good flow Chest x-ray confirmed good placement of the tip of the endotracheal tube It was then fixed in place with 2 stitches of 2-0 silk suture. This completed the procedure.
--- NOTE | 2020-01-01 16:57 | RADIOLOGY REPORT (SQ) ---
EXAM DESCRIPTION: CHEST SINGLE VIEW IMAGES COMPLETED DATE/TIME: 01/01/2020 4:27 pm REASON FOR STUDY: resp failure COMPARISON: 12/31/2019 EXAM PARAMETERS: NUMBER OF VIEWS: One view. TECHNIQUE: Single frontal radiographic view of the chest acquired. RADIATION DOSE: NA LIMITATIONS: None. FINDINGS: LUNGS AND PLEURA: Mildly worsened diffuse bilateral airspace disease. . No pneumothorax. Pneumomediastinum. No new effusion. MEDIASTINUM AND HILAR STRUCTURES: New pneumomediastinum. HEART AND VASCULAR STRUCTURES: Normal heart size. Pneumomediastinum. BONES: No acute findings. HARDWARE: Right approach PICC tip terminates at SVC. New tracheostomy tube with tip terminating over midthoracic trachea. OTHER: No other significant finding. IMPRESSION: 1. New tracheostomy tube with tip terminating over midthoracic trachea. Pneumomediasti num, presumably postoperative. 2. Worsening diffuse bilateral airspace disease. 3. New right approach PICC tip terminates over SVC. TECHNICAL DOCUMENTATION: JOB ID: [id number] [employer]- All Rights Reserved Reading location - IP/workstation name: [email or web address]
[2020-01-01] MEDS ORDERED: DEXMEDETOMIDINE IN NS 400 MCG/100 ML RTUPB IV PRN (16:58)
--- NOTE | 2020-01-01 17:03 | CRITICAL CARE ADMISSION REPORT ---
HPI Date:: 01/01/20 Time:: 16:00 Reason for ICU Reason:: Intubation for Covid PNA Admission Date/Time & PCP: Admission Date/Time: 12/25/19 19:37 Primary Care Provider: HPI: * This patient is a 54 yo man hospitalized since 12/24 with Covid PNA. He has been maintained on bipap with essentially no marked improvement. Today he became more hypoxic on 100% bipap. When seen on the 3rd floor he was struggling to breath with an O2 saturation between 68-85%. He was seen 2 days ago for possible ICU ad mission but did not need a change in his treatment. Wghen seen today he was markedly more SOB with a duskiness and mild confusion not present before. He was brought to the ICU for intubation which was not possible by anesthesia due to much obstructing dried blood. An emergency tracheotomy was performed by Dr. Guevara. Even with this his Saturation was at best 70% mostly in the 60s. He has a #7 ET in his neck due to a lack of trach supplies, sutured in place. He is on Diprivan and TPN. History obtained from:: Old records, Hosital staff. - Diagnosis/Plan (1) Acute respiratory failure with hypoxemia Is this a current diagnosis for this admission?: Yes Plan: He is still hypoxic despite high PEEP and 100% O2. I fear for his overall neurological functioning. Too soon to tell (2) Pneumonia due to COVID-19 virus Is this a current diagnosis for this admission?: Yes Plan: The cause for his acute critical illness. He is diabetic, -[place] and obese, all risk factors for more severe disease. Prognosis not good. (3) Tracheostomy in place Is this a current diagnosis for this admission?: Yes Plan: Done as an emergency, leave in place. (4) Hyperglycemia due to type 2 diabetes mellitus Qualifiers: Diabetes mellitus oil heaterman insulin use: with shelter use Qualified Code(s): E11.65 - Type 2 diabetes mellitus with hyperglycemia; Z79.4 - residential (current) use of insulin Is this a current diagnosis for this admission?: Yes Plan: Needs insulin, sliding scale and lantus. (5) Morbid obesity Is this a current diagnosis for this admission?: Yes Plan: BMI is 41. Plan Summary: Keep on 100% and try to get oxygenation up. Hold on sedation to see neuro function. Past Medical History Cardiac Medical History: Reports: Myocardial Infarction - Several years ago, Hypertension Endocrine Medical History: Reports: Diabetes Mellitus Type 2 Musculoskeltal Medical History: Reports: Arthritis Psychiatric Medical History: Reports: Depression Traumatic Medical History: Denies: Traumatic Brain Injury Hematology: Denies: Bleeding Tendencies Infectious Medical History: Reports: Methicillin-Resistant Staph Aureus Past Surgical History Past Surgical History: Reports: Tonsillectomy, Other - I&D of right thigh absce ss Social/Family History - Social History Lives with: Spouse/Significant other Smoking Status: Former Smoker Frequency of Alcohol Use: Rare Hx Recreational Drug Use: No Drugs: None Hx Prescription Drug Abuse: No - Medication/Allergies Home Medications: Pioglitazone HCl [Actos 30 mg Tablet] 30 mg PO DAILY 12/25/19 Semaglutide [Ozempic] 1 mg SQ MO@1000 12/25/19 Diclofenac Sodium 2 gm TP QID 12/26/19 Allergies/Adverse Reactions: No Known Allergies Allergy (Unverified 09/26/18 01:55) Review of Systems ROS unobtainable: Due to endotracheal tube, Due to mental status Physical Exam Vital Signs: Temp Pulse Resp BP Pulse Ox 99.3 F 125 H 50 H 126/73 H 61 L 01/01/20 11:48 01/01/20 14:00 01/01/20 13:57 01/01/20 11:48 01/01/20 16:25 Intake & Output 12/31/19 01/01/20 01/02/20 06:59 06:59 06:59 Intake Total 500 1879 0 Output Total 500 800 150 Balance 0 1079 -150 Weight 137.4 kg 137.4 kg Weight/Height Weight 137.4 kg Height 6 ft General appearance: PRESENT: morbidly obese Head exam: PRESENT: atraumatic, normocephalic Eye exam: PRESENT: conjunctiva pink, EOMI, PERRLA. ABSENT: scleral icterus Ear exam: PRESENT: normal external ear exam Mouth exam: PRESENT: moist, tongue midline Neck exam: PRESENT: tracheostomy Respiratory exam: PRESENT: crackles, rhonchi, tachypnea Cardiovascular exam: PRESENT: tachycardia GI/Abdominal exam: PRESENT: normal bowel sounds, soft. ABSENT: distended, guarding, mass, organolmegaly, rebound, tenderness Rectal exam: PRESENT: deferred Gentrourinary exam: PRESENT: indwelling catheter Extremities exam: PRESENT: full ROM. ABSENT: calf tenderness, clubbing, pedal edema Musculoskeletal exam: PRESENT: normal inspection Neurological exam: PRESENT: altered Skin exam: PRESENT: dry, intact, warm. ABSENT: cyanosis, rash Tubes/Lines: PRESENT: Endotracheal Tube, Central Line - PICC, Other - Trach Laboratory/Radiographs Laboratory Results: 01/01/20 10:00 01/01/20 08:40 12/31/19 12/31/19 01/01/20 17:50 17:50 06:15 WBC 11.4 H RBC 5.34 Hgb 13.3 L Hct 42.4 MCV 79 L MCH 24.9 L MCHC 31.4 L RDW 14.8 H Plt Count 323 Seg Neutrophils % Carbonic Acid HCO3/H2CO3 Ratio ABG pH ABG pCO2 ABG pO2 ABG HCO3 ABG O2 Saturation ABG Base Excess FiO2 Sodium Potassium Chloride Carbon Dioxide Anion Gap BUN Creatinine Est GFR ( Amer) Glucose Calcium Magnesium 3.0 H Total Bilirubin AST Alkaline Phosphatase Total Protein Albumin Triglycerides 118 Urine Color YELLOW Urine Appearance CLEAR Urine pH 5.0 Ur Specific [place] 1.032 Urine Protein 100 H Urine Glucose (UA) >=500 H Urine Ketones TRACE H Urine Blood NEGATIVE Urine Nitrite NEGATIVE Ur Leukocyte Esterase NEGATIVE Urine WBC (Auto) 1 Urine RBC (Auto) 3 01/01/20 01/01/20 01/01/20 08:40 10:00 15:16 WBC 12.0 H RBC 5.31 Hgb 13.4 L Hct 42.4 MCV 80 MCH 25.2 L MCHC 31.5 L RDW 14.6 H Plt Count 326 Seg Neutrophils % 89.3 H Carbonic Acid 1.36 H HCO3/H2CO3 Ratio 18:1 ABG pH 7.36 ABG pCO2 45.2 H ABG pO2 37.3 L* ABG HCO3 25.1 H ABG O2 Saturation 68.7 L ABG Base Excess -0.7 FiO2 100% Sodium 153.8 H Potassium 4.1 Chloride 116 H Carbon Dioxide 32 H Anion Gap 6 BUN 28 H Creatinine 0.84 Est GFR ( Amer) > 60 Glucose 349 H Calcium 8.4 Magnesium Total Bilirubin 0.6 AST 28 Alkaline Phosphatase 120 Total Protein 6.4 Albumin 2.6 L Triglycerides Urine Color Urine Appearance Urine pH Ur Specific [place] Urine Protein Urine Glucose (UA) Urine Ketones Urine Blood Urine Nitrite Ur Leukocyte Esterase Urine WBC (Auto) Urine RBC (Auto) 12/25/19 15:34 Troponin I < 0.012 Impressions: PICC Line Insertion 12/31/19 00:00 IMPRESSION: SUCCESSFUL PLACEMENT OF A 5 FR DUAL LUMEN 43 CM PICC IN THE RIGHT BRACHIOCEPHALIC VEIN. All labs, radiographs, diagnostic studies and EKGs were personally reviewed: Yes In addition, reports of radiographic and diagnostic studies were read: Yes Critical Time Critical Time (minutes): 60 -: The care of a critically ill patient is dynamic. This note represents a static moment in the admission process. Orders and treatments may be given simultan eously and urgently, and time is not merchandiser retail representative of the treatment process. This patient requires Critical Care secondary to life threatening organ or limb dysfunction. Without Critical Care services, the patient is at risk for increased mortality and morbidity.
[2020-01-01] MEDS ORDERED: INSULIN LISPRO 100 UNIT/ML 3 ML VIAL SUBCUT SCH (18:00)
[2020-01-01] MEDS: FAMOTIDINE INJ/PF 20 MG/2 ML SDV IV SCH (18:07)
[2020-01-01] MEDS ORDERED: MIDAZOLAM HCL 50 MG/100 ML RTUINJ ONE (19:03)
[2020-01-01] MEDS: MIDAZOLAM HCL 50 MG/100 ML RTUINJ IV PRN ×2 (19:16→23:01)
[2020-01-01] MEDS ORDERED: NORMAL SALINE 250 ML IV PRN ×2 (19:23)
[2020-01-01] MEDS ORDERED: RINGERS SOLUTION,LACTATED 500 ML IV ONE (19:45)
[2020-01-01] MEDS ORDERED: GLUCAGON,HUMAN RECOMB 1 MG INJ IM PRN (19:59)
[2020-01-01] MEDS ORDERED: FENTANYL CITRATE INJ/PF 100 MCG/2 ML AMPUL ONE (20:05)
[2020-01-01] MEDS ORDERED: SUCCINYLCHOLINE CHLORIDE INJ 200 MG/10 ML VIAL ONE (20:14)
[2020-01-01] MEDS ORDERED: ROCURONIUM BROMIDE INJ 50 MG/5 ML VIAL IV ONE (20:14)
[2020-01-01] MEDS ORDERED: EPINEPHRINE INJ 1 MG/10 ML DISP.SYRIN ONE ×2 (20:14→23:13)
[2020-01-01] MEDS ORDERED: EPINEPHRINE INJ/PF 1 MG/1 ML AMPULE ONE ×2 (20:35→21:39)
[2020-01-01] MEDS ORDERED: SODIUM BICARBONATE 8.4% INJ 50 MEQ/50 ML DISP.SYRIN ONE ×3 (20:37→21:22)
[2020-01-01] MEDS: DEXTROSE 5%-WATER 250 ML with NOREPINEPHRINE BITARTRATE 4 MG IV PRN ×2 (20:45)
--- NOTE | 2020-01-01 20:45 | RADIOLOGY REPORT (SQ) ---
EXAM DESCRIPTION: X-ray, single view of the chest CLINICAL HISTORY: 54 years Male, congestion COMPARISON: Portable view of the chest obtained earlier in the afternoon at 4:15 PM FINDINGS: Tracheostomy tube is unchanged in position as is the right-sided PICC line. There is been placement of an NG tube which passes through the esophagus and into the stomach. The proximal side port is at the GE junction. This should be advanced several centimeters to be fully within the stomach. There is extensive multifocal parenchymal opacification bilaterally which is unchanged. Pneumomediastinum is unchanged. No pneumothorax. Cardiac and mediastinal silhouette are widened. IMPRESSION: 1. Interval placement of an NG tube. The tip is in the stomach. The proximal side port is near the GE junction. This should be advanced several centimeters to be fully within the stomach. 2. Persistent pneumomediastinum. 3. Persistent multifocal parenchymal opacification bilaterally.
[2020-01-01] MEDS ORDERED: NOREPINEPHRINE BITARTRATE INJ/PF 4 MG/4 ML SDV IV ONE ×2 (20:47→23:10)
[2020-01-01] MEDS: DEXTROSE 5%-WATER 250 ML with EPINEPHRINE/PF 1 MG IV PRN ×4 (20:49→23:31)
[2020-01-01] MEDS ORDERED: VECURONIUM BROMIDE INJ 10 MG VIAL IV ONE ×4 (20:54→23:59)
[2020-01-01] MEDS: NORMAL SALINE 100 ML with VECURONIUM BROMIDE 10 MG IV PRN ×4 (21:07→22:38)
[2020-01-01 21:10] LABS: ARTERIAL BLOOD BASE EXCESS -11.2 mmol/L; ARTERIAL BLOOD HCO3 20.8 mmol/L (20-24); ARTERIAL BLOOD O2 SATURATION 46.8 % (94-98); ARTERIAL BLOOD TOTAL CO2 23.2 mmol/L (23-27)
[2020-01-01 21:12] LABS: ARTERIAL BLOOD FIO2 100%; ARTERIAL BLOOD PCO2 79.6 mmHg (35-45); ARTERIAL BLOOD PH 7.04 (7.35-7.45); ARTERIAL BLOOD PO2 37.1 mmHg (80-100)
[2020-01-01] MEDS: IPRATROPIUM/ALBUTEROL 0.5-2.5 MG/3 ML AMPUL NEB SCH (21:13)
[2020-01-01] MEDS ORDERED: SODIUM BICARBONATE 8.4% INJ 50 MEQ/50 ML DISP.SYRIN IV ONE (21:13)
[2020-01-01] MEDS ORDERED: DEXTROSE 5%-WATER 1000 ML 1,000 ML with SODIUM BICARBONATE 150 MEQ IV PRN ×2 (21:13)
--- NOTE | 2020-01-01 21:34 | RADIOLOGY REPORT (SQ) ---
EXAM DESCRIPTION: XR CHEST 1 VIEW. 8:44 PM COMPLETED DATE/TME: 01/01/2020 00:00 CLINICAL HISTORY: 54 years, Male, Chest Tube Placement COMPARISON: Film today at 8:05 PM 12/31/2019 TECHNIQUE: Supine portable chest x-ray FINDINGS: Endotracheal tube well above the arthur. Tip of enteric tube not definitely visualized but may not be deep in the stomach. Mild cardiomegaly. No suspicious mediastinal widening. Severe bilateral groundglass opacities gradually increasing since yesterday. Suspected pneumomediastinum. Cannot exclude interstitial pulmonary emphysema. No definite pneumothorax although this cannot be excluded completely.
--- NOTE | 2020-01-01 21:49 | Operative Report ---
Nonrecallable Operative Report DATE OF SURGERY: 01/01/20 PREOPERATIVE DIAGNOSIS: bilateral pneumonia POSTOPERATIVE DIAGNOSIS: bilateral pneumoinia OPERATION: left chest tube thoracostomy SURGEON: KAVON SALAMANCA ANESTHESIA: Other TISSUE REMOVED OR ALTERED: none COMPLICATIONS: none ESTIMATED BLOOD LOSS: 10cc INTRAOPERATIVE FINDINGS: see note PROCEDURE: This procedure was done in room 604 in the intensive care unit. I was called to the patient's room by the PA covering in the intensive care unit. This patient was in extreme respiratory distress being bagged and the PA felt that he had a pneumothorax. Evaluation of the chest x-ray did not reveal an obvious pneumothorax however however he had bilateral groundglass appearance of both lungs he was saturating at approximately 40 to 50% chest compressions were in progress. Elected to place a left chest tube since there was a questionable small left apical pneumothorax on chest x-ray. The anterior chest was prepped with chlorhexidine in the fourth intercostal space in the midclavicular line a transverse incision was made over the rib with a 15 blade and a tract was dilated with a Yanelis clamp. As we gained access to the chest cavity did not hear a air however I did place a 28 Japanese chest tube into the thorax. It was fixed in place with 2-0 silk. It was connected to a Pleur-evac 10 attached to suction. A sterile dressing was applied which completed the procedure.
[2020-01-01 21:53] LABS: ALBUMIN 1.5 g/dL (3.5-5.0); ALKALINE PHOSPHATASE 70 U/L (38-126); ANION GAP 12 (5-19); ASPARTATE AMINO TRANSFERASE 329 U/L (17-59); BILIRUBIN,DIRECT 0.4 mg/dL (0.0-0.4); BILIRUBIN,TOTAL 0.4 mg/dL (0.2-1.3); BLOOD UREA NITROGEN 23 mg/dL (7-20); CHLORIDE 113 mmol/L (98-107); TOTAL PROTEIN 3.5 g/dL (6.3-8.2)
[2020-01-01 21:58] LABS: VENOUS BLOOD BASE EXCESS -4.1 mmol/L; VENOUS BLOOD HCO3 24.3 mmol/L (20-32); VENOUS BLOOD PCO2 61.4 mmHg (35-63); VENOUS BLOOD PH 7.22 (7.30-7.42)
[2020-01-01] MEDS ORDERED: INSULIN GLARGINE,HUM.REC.ANLOG 1,000 UNIT/10 ML VIAL SUBCUT SCH (22:00)
[2020-01-01 22:02] LABS: CARBON DIOXIDE 21 mmol/L (22-30)
[2020-01-01 22:10] LABS: CALCIUM 4.9 mg/dL (8.4-10.2); GLUCOSE 734 mg/dL (75-110); POTASSIUM 2.7 mmol/L (3.6-5.0)
[2020-01-01] MEDS ORDERED: FUROSEMIDE INJ/PF 100 MG/10 ML SDV IV ONE (22:11)
[2020-01-01] MEDS ORDERED: POTASSIUM CHLORIDE 20 MEQ PACKET PO ONE (22:14)
[2020-01-01] MEDS: POTASSI CL 20 MEQ/50 ML RIDER 20 MEQ/50 ML RTUPB IV SCH (23:00)
[2020-01-01 23:06] LABS: HEMATOCRIT 45.3 % (37.9-51.0); HEMOGLOBIN 13.4 g/dL (13.5-17.0); MEAN CORPUSCULAR HEMOGLOBIN 25.1 pg (27.0-33.4); MEAN CORPUSCULAR HGB CONC 29.7 g/dL (32.0-36.0); PLATELET COUNT 353 10^3/uL (150-450); RED BLOOD COUNT 5.36 10^6/uL (4.35-5.55)
[2020-01-01] MEDS: SILDENAFIL CITRATE 20 MG TABLET PO SCH (23:33)
[2020-01-01 23:40] LABS: WHITE BLOOD COUNT 28.4 10^3/uL (4.0-10.5)
[2020-01-01] MEDS: NORMAL SALINE 100 ML with INSULIN REGULAR, HUMAN 100 UNIT IV PRN ×2 (23:40)
[2020-01-01 23:41] LABS: MEAN CORPUSCULAR VOLUME 85 fl (80-97)
[2020-01-01] MEDS: ASPIRIN 81 MG TABLET, CHEWABLE NG SCH (23:50)
[2020-01-02] MEDS: DEXTROSE 5%-WATER 250 ML with NOREPINEPHRINE BITARTRATE 4 MG IV PRN ×8 (00:05→20:07)
[2020-01-02] MEDS: NORMAL SALINE 100 ML with VECURONIUM BROMIDE 10 MG IV PRN ×4 (00:09→01:40)
[2020-01-02] MEDS: POTASSI CL 20 MEQ/50 ML RIDER 20 MEQ/50 ML RTUPB IV SCH ×2 (00:18→01:19)
--- NOTE | 2020-01-02 00:31 | Progress Note ---
Provider Note Provider Note: 01/01/20201999 Patient began desaturating from 93% to mid to low 80's. Chest xray obtained and appeared to ahve small pneumothorax on left apical area. I called surgery to evaluate for chest tube placement. Sedation was stopped at 2014 as pt began to dirk down with rate drop from 130's to 80. The patient began to continue to have low saturations dropping into the 70's and 60's despite being bagged with 100% oxygen. Surgeon at bedside and at 2023 a estrella pierre was called after patient lost his pulse. CPR and ACLS protocol was started and the surgeon elected to palce a left side chest tube. Please refer to code sheet for complete details of meds given. ROSC was obtained and the patient was placed back on the ventilator with sats improving to the mid 80's. Stat labs obtained and are pending. Nursing staff updated next of kin of patients condition.
[2020-01-02] MEDS ORDERED: DEXAMETHASONE SOD PHOSPHATE INJ 4 MG/1 ML VIAL ONE ×2 (00:53→04:46)
[2020-01-02] MEDS: INSULIN GLARGINE,HUM.REC.ANLOG 1,000 UNIT/10 ML VIAL SUBCUT SCH ×4 (00:55→21:51)
[2020-01-02] MEDS ORDERED: FUROSEMIDE INJ/PF 100 MG/10 ML SDV ONE (00:58)
[2020-01-02] MEDS: DEXAMETHASONE SOD PHOS INJ 10 MG/1 ML VIAL IV SCH ×4 (01:20→22:02)
[2020-01-02 01:25] LABS: VENOUS BLOOD BASE EXCESS -1.4 mmol/L; VENOUS BLOOD HCO3 28.4 mmol/L (20-32); VENOUS BLOOD PH 7.2 (7.30-7.42)
[2020-01-02 01:26] LABS: VENOUS BLOOD PCO2 74.8 mmHg (35-63)
[2020-01-02] MEDS ORDERED: ROCURONIUM BROMIDE INJ 50 MG/5 ML VIAL IV ONE (02:11)
[2020-01-02] MEDS: ALBUTEROL SULFATE 0.083% NEB 2.5 MG/3 ML AMPUL NEB SCH ×5 (02:30→20:56)
[2020-01-02] MEDS: IPRATROPIUM/ALBUTEROL 0.5-2.5 MG/3 ML AMPUL NEB SCH ×4 (02:30→20:52)
[2020-01-02 02:32] LABS: ANION GAP 12 (5-19); BLOOD UREA NITROGEN 32 mg/dL (7-20); CALCIUM 7.9 mg/dL (8.4-10.2); CARBON DIOXIDE 28 mmol/L (22-30); CHLORIDE 118 mmol/L (98-107)
[2020-01-02 02:36] LABS: POTASSIUM 5.4 mmol/L (3.6-5.0)
[2020-01-02 02:40] LABS: GLUCOSE 584 mg/dL (75-110)
[2020-01-02] MEDS: NORMAL SALINE 500 ML with ROCURONIUM BROMIDE 500 MG IV PRN ×4 (02:48→11:47)
[2020-01-02] MEDS ORDERED: NOREPINEPHRINE BITARTRATE INJ/PF 4 MG/4 ML SDV IV ONE (03:38)
[2020-01-02] MEDS ORDERED: INSULIN REG, HUMAN 100 UNIT/ML 3 ML VIAL (PYX) ONE (04:48)
[2020-01-02] MEDS: FAMOTIDINE INJ/PF 20 MG/2 ML SDV IV SCH (05:19)
[2020-01-02] MEDS: NORMAL SALINE 100 ML with INSULIN REGULAR, HUMAN 100 UNIT IV PRN ×6 (05:19→20:13)
[2020-01-02 06:05] LABS: ARTERIAL BLOOD BASE EXCESS 1.7 mmol/L; ARTERIAL BLOOD FIO2 100%; ARTERIAL BLOOD H2CO3 2.05 mmol/L (1.05-1.35); ARTERIAL BLOOD HCO3 30.6 mmol/L (20-24); ARTERIAL BLOOD O2 SATURATION 80.1 % (94-98); ARTERIAL BLOOD PH 7.27 (7.35-7.45); ARTERIAL BLOOD PO2 51.1 mmHg (80-100); ARTERIAL BLOOD TOTAL CO2 32.7 mmol/L (23-27)
[2020-01-02 06:44] LABS: ALBUMIN 2.6 g/dL (3.5-5.0); ALKALINE PHOSPHATASE 140 U/L (38-126); ANION GAP 11 (5-19); ASPARTATE AMINO TRANSFERASE 571 U/L (17-59); BILIRUBIN,DIRECT 0.7 mg/dL (0.0-0.4); BILIRUBIN,TOTAL 0.8 mg/dL (0.2-1.3); BLOOD UREA NITROGEN 31 mg/dL (7-20); CALCIUM 7.8 mg/dL (8.4-10.2); CARBON DIOXIDE 32 mmol/L (22-30); CHLORIDE 117 mmol/L (98-107); POTASSIUM 4.7 mmol/L (3.6-5.0); TOTAL PROTEIN 6.2 g/dL (6.3-8.2)
[2020-01-02 06:51] LABS: GLUCOSE 411 mg/dL (75-110); PREALBUMIN 5.8 mg/dL (17.6-36.0)
[2020-01-02 07:58] LABS: HEMATOCRIT 41.7 % (37.9-51.0); HEMOGLOBIN 12.7 g/dL (13.5-17.0); MEAN CORPUSCULAR HGB CONC 30.4 g/dL (32.0-36.0); MEAN CORPUSCULAR VOLUME 82 fl (80-97); PLATELET COUNT 327 10^3/uL (150-450); RED BLOOD COUNT 5.06 10^6/uL (4.35-5.55); RED CELL DISTRIBUTION WIDTH 15.5 % (11.5-14.0); WHITE BLOOD COUNT 27.8 10^3/uL (4.0-10.5)
[2020-01-02 08:29] LABS: ABSOLUTE LYMPHOCYTES# (MANUAL) 0.8 10^3/uL (0.5-4.7); ABSOLUTE MONOCYTES # (MANUAL) 0.6 10^3/uL (0.1-1.4); BASOPHILS % (MANUAL) 0 % (0-2); EOSINOPHILS % (MANUAL) 0 % (0-6); LYMPHOCYTES % (MANUAL) 3 % (13-45); MONOCYTES % (MANUAL) 2 % (3-13); SEGMENTED NEUTROPHILS % (MAN) 95 % (42-78); TOTAL CELLS COUNTED 100
[2020-01-02 08:30] LABS: ANISOCYTOSIS SLIGHT; PLATELET COMMENT ADEQUATE
--- NOTE | 2020-01-02 08:39 | PDOC CRITICAL CARE PROG REPORT ---
General Date:: 01/02/20 ICU Day:: 2 Ventilator Day:: 2 Hospital Day:: 8 Resuscitation Status: Full Code Events in the past 12 to 24 Hours:: Had emergant trach, coded, received chest tube. Review of systems relevant to events:: Pulmonary, neurologic. Reason for ICU Addmission:: Intubation for Covid PNA. Now has trach, chest tube. - Medications: Medications reviewed and adjusted accordingly: Yes Vasopressors:: Epinephrine. Sedation:: Precedex. Physical Exam Vital Signs: Temp Pulse Resp BP Pulse Ox 99.1 F 138 H 36 H 81/33 L 84 L 01/02/20 05:00 01/02/20 02:30 01/02/20 02:30 01/01/20 19:15 01/02/20 04:35 Intake & Output 01/01/20 01/02/20 01/03/20 06:59 06:59 06:59 Intake Total 1879 2123 8 Output Total 800 1885 Balance 1079 238 8 Weight 137.4 kg 141.9 kg Weight/Height Weight 141.9 kg Height 6 ft General appearance: PRESENT: obese Head exam: PRESENT: atraumatic, normocephalic Eye exam: PRESENT: conjunctiva pink, EOMI, PERRLA. ABSENT: scleral icterus Ear exam: PRESENT: normal external ear exam Mouth exam: PRESENT: moist, tongue midline Neck exam: PRESENT: tracheostomy Respiratory exam: PRESENT: crackles, rhonchi - Coarse. Cardiovascular exam: PRESENT: tachycardia Pulses: PRESENT: normal dorsalis pedis pul GI/Abdominal exam: PRESENT: normal bowel sounds, soft. ABSENT: distended, guarding, mass, organolmegaly, rebound, tenderness Rectal exam: PRESENT: deferred Gentrourinary exam: PRESENT: indwelling catheter Extremities exam: PRESENT: full ROM. ABSENT: calf tenderness, clubbing, pedal edema Musculoskeletal exam: PRESENT: normal inspection Neurological exam: PRESENT: other - Right deon sedated with precedex. On rocuronium. Moves some but nor purposeful. Skin exam: PRESENT: dry, intact, warm. ABSENT: cyanosis, rash Tubes/Lines: PRESENT: Chest Tube, Nasogastic Tube, Other - Tracheotomy. Laboratory/Radiographs Laboratory Results: 01/02/20 05:32 01/01/20 01/01/20 01/01/20 08:40 10:00 15:16 WBC 12.0 H RBC 5.31 Hgb 13.4 L Hct 42.4 MCV 80 MCH 25.2 L MCHC 31.5 L RDW 14.6 H Plt Count 326 Seg Neutrophils % 89.3 H Carbonic Acid 1.36 H HCO3/H2CO3 Ratio 18:1 ABG pH 7.36 ABG pCO2 45.2 H ABG pO2 37.3 L* ABG HCO3 25.1 H ABG O2 Saturation 68.7 L ABG Base Excess -0.7 VBG pH VBG pCO2 VBG HCO3 VBG Base Excess FiO2 100% Sodium 153.8 H Potassium 4.1 Chloride 116 H Carbon Dioxide 32 H Anion Gap 6 BUN 28 H Creatinine 0.84 Est GFR ( Amer) > 60 Est GFR (Non-Af Amer) Glucose 349 H Serum Osmolality Lactic Acid Calcium 8.4 Phosphorus Total Bilirubin 0.6 AST 28 Alkaline Phosphatase 120 C-Reactive Protein Total Protein 6.4 Albumin 2.6 L Prealbumin Blood Type Antibody Screen 01/01/20 01/01/20 01/01/20 20:41 20:41 21:25 WBC RBC Hgb Hct MCV MCH MCHC RDW Plt Count Seg Neutrophils % Carbonic Acid 2.40 H HCO3/H2CO3 Ratio 8:1 ABG pH 7.04 L* ABG pCO2 79.6 H* ABG pO2 37.1 L* ABG HCO3 20.8 ABG O2 Saturation 46.8 L ABG Base Excess -11.2 VBG pH VBG pCO2 VBG HCO3 VBG Base Excess FiO2 100% Sodium Cancelled 146.3 H Potassium Cancelled 2.7 L* D Chloride Cancelled 113 H Carbon Dioxide Cancelled 21 L D Anion Gap Cancelled 12 BUN Cancelled 23 H Creatinine Cancelled 0.80 Est GFR ( Amer) Cancelled > 60 Est GFR (Non-Af Amer) Cancelled Glucose Cancelled 734 H* Serum Osmolality Lactic Acid Calcium Cancelled 4.9 L* Phosphorus Total Bilirubin Cancelled 0.4 AST Cancelled 329 H Alkaline Phosphatase Cancelled 70 C-Reactive Protein Total Protein Cancelled 3.5 L Albumin Cancelled 1.5 L Prealbumin Blood Type Antibody Screen 01/01/20 01/01/20 01/01/20 21:25 21:25 21:25 WBC Cancelled RBC Cancelled Hgb Cancelled Hct Cancelled MCV Cancelled MCH Cancelled MCHC Cancelled RDW Cancelled Plt Count Cancelled Seg Neutrophils % Cancelled Carbonic Acid HCO3/H2CO3 Ratio ABG pH ABG pCO2 ABG pO2 ABG HCO3 ABG O2 Saturation ABG Base Excess VBG pH VBG pCO2 VBG HCO3 VBG Base Excess FiO2 Sodium Cancelled Potassium Cancelled Chloride Cancelled Carbon Dioxide Cancelled Anion Gap Cancelled BUN Cancelled Creatinine Cancelled Est GFR ( Amer) Cancelled Est GFR (Non-Af Amer) Cancelled Glucose Cancelled Serum Osmolality Lactic Acid Calcium Cancelled Phosphorus Total Bilirubin Cancelled AST Cancelled Alkaline Phosphatase Cancelled C-Reactive Protein 139.5 H Total Protein Cancelled Albumin Cancelled Prealbumin Blood Type Antibody Screen 01/01/20 01/01/20 01/01/20 21:25 21:25 21:25 WBC RBC Hgb Hct MCV MCH MCHC RDW Plt Count Seg Neutrophils % Carbonic Acid HCO3/H2CO3 Ratio ABG pH ABG pCO2 ABG pO2 ABG HCO3 ABG O2 Saturation ABG Base Excess VBG pH 7.22 L VBG pCO2 61.4 VBG HCO3 24.3 VBG Base Excess -4.1 FiO2 Sodium Potassium Chloride Carbon Dioxide Anion Gap BUN Creatinine Est GFR ( Amer) Est GFR (Non-Af Amer) Glucose Serum Osmolality 347 H Lactic Acid 8.4 H Calcium Phosphorus Total Bilirubin AST Alkaline Phosphatase C-Reactive Protein Total Protein Albumin Prealbumin Blood Type Antibody Screen 01/01/20 01/01/20 01/02/20 22:49 22:49 01:00 WBC 28.4 H D RBC 5.36 Hgb 13.4 L Hct 45.3 MCV 85 D MCH 25.1 L MCHC 29.7 L RDW 16.0 H Plt Count 353 Seg Neutrophils % Carbonic Acid HCO3/H2CO3 Ratio ABG pH ABG pCO2 ABG pO2 ABG HCO3 ABG O2 Saturation ABG Base Excess VBG pH 7.20 L VBG pCO2 74.8 H* VBG HCO3 28.4 VBG Base Excess -1.4 FiO2 Sodium Potassium Chloride Carbon Dioxide Anion Gap BUN Creatinine Est GFR ( Amer) Est GFR (Non-Af Amer) Glucose Serum Osmolality Lactic Acid Calcium Phosphorus Total Bilirubin AST Alkaline Phosphatase C-Reactive Protein Total Protein Albumin Prealbumin Blood Type B POSITIVE Antibody Screen NEGATIVE 01/02/20 01/02/20 01/02/20 01:44 05:32 05:32 WBC RBC Hgb Hct MCV MCH MCHC RDW Plt Count Seg Neutrophils % Carbonic Acid 2.05 H HCO3/H2CO3 Ratio 14:1 ABG pH 7.27 L ABG pCO2 68.0 H ABG pO2 51.1 L ABG HCO3 30.6 H ABG O2 Saturation 80.1 L ABG Base Excess 1.7 VBG pH VBG pCO2 VBG HCO3 VBG Base Excess FiO2 100% Sodium 158.0 H Cancelled Potassium 5.4 H D Cancelled Chloride 118 H Cancelled Carbon Dioxide 28 Cancelled Anion Gap 12 Cancelled BUN 32 H Cancelled Creatinine 1.18 Cancelled Est GFR ( Amer) > 60 Cancelled Est GFR (Non-Af Amer) Cancelled Glucose 584 H* Cancelled Serum Osmolality Lactic Acid Calcium 7.9 L Cancelled Phosphorus 3.7 Total Bilirubin Cancelled AST Cancelled Alkaline Phosphatase Cancelled C-Reactive Protein Total Protein Cancelled Albumin Cancelled Prealbumin Blood Type Antibody Screen 01/02/20 01/02/20 05:32 05:32 WBC RBC Hgb Hct MCV MCH MCHC RDW Plt Count Seg Neutrophils % Not Reportable Carbonic Acid HCO3/H2CO3 Ratio ABG pH ABG pCO2 ABG pO2 ABG HCO3 ABG O2 Saturation ABG Base Excess VBG pH VBG pCO2 VBG HCO3 VBG Base Excess FiO2 Sodium 159.5 H Potassium 4.7 Chloride 117 H Carbon Dioxide 32 H Anion Gap 11 BUN 31 H Creatinine 1.44 H Est GFR ( Amer) > 60 Est GFR (Non-Af Amer) Glucose 411 H* Serum Osmolality Lactic Acid Calcium 7.8 L Phosphorus Total Bilirubin 0.8 AST 571 H Alkaline Phosphatase 140 H C-Reactive Protein Total Protein 6.2 L Albumin 2.6 L Prealbumin 5.8 L Blood Type Antibody Screen 12/25/19 15:34 Troponin I < 0.012 Impressions: PICC Line Insertion 12/31/19 00:00 IMPRESSION: SUCCESSFUL PLACEMENT OF A 5 FR DUAL LUMEN 43 CM PICC IN THE RIGHT BRACHIOCEPHALIC VEIN. All labs, radiographs, diagnostic studies and EKGs were personally reviewed: Yes In addition, reports of radiographic and diagnostic studies were read: Yes Assessment and Plan - Diagnosis (1) Acute respiratory failure with hypoxemia Is this a current diagnosis for this admission?: Yes Plan: Still a Covid PNA with high O2 requirements and saturations 85-90%. (2) Pneumonia due to COVID-19 virus Is this a current diagnosis for this admission?: Yes Plan: Quite severe with obesity and diabetes being risk factors for severe disease. (3) Tracheostomy in place Is this a current diagnosis for this admission?: Yes Plan: Done emergantly 12/31. Formal tracheotomy this week. (4) Hyperglycemia due to type 2 diabetes mellitus Qualifiers: Diabetes mellitus terminal manager insulin use: with detention use Qualified Code(s): E11.65 - Type 2 diabetes mellitus with hyperglycemia; Z79.4 - exterminator helper termite (current) use of insulin Is this a current diagnosis for this admission?: Yes Plan: Has been on insulin drip. High rate of 15u. (5) Morbid obesity Is this a current diagnosis for this admission?: Yes Plan: A risk factor for severity of illness. Plan Summary: Leave intubated and allow slow recovery I do not see much room to wean or make much progress. Critical Time Critical Time (minutes): 40 Level of Care: ICU Anticipated discharge: Home Anticipated DC Timeframe: Other -: 1. The care of a critical patient is a dynamic process. This note is a ocean import representative synopsis but static in nature. The timeframe for treatments given in order is not necessarily the actual time these treatments may have been done. 2. This patient requires critical care secondary to ongoing requirements for therapy not offered or safe outside the critical care environment. Transfer to a lower level of care will result in altered life or limb morbidity and mortality. 3. Multidisciplinary rounds completed. 4. ABCDE bundle addressed.
[2020-01-02] MEDS: ALBUMIN HUMAN 12.5 GM/50 ML RTUINJ IV SCH ×4 (08:54→13:04)
[2020-01-02] MEDS ORDERED: METOPROLOL TARTRATE 25 MG TABLET PO SCH (10:00)
[2020-01-02] MEDS ORDERED: METOPROLOL TARTRATE 25 MG TABLET NG SCH (10:00)
[2020-01-02] MEDS ORDERED: ENOXAPARIN SODIUM INJ 40 MG/0.4 ML DISP.SYRIN SUBCUT SCH (10:00)
[2020-01-02] MEDS: ENOXAPARIN SODIUM INJ 150 MG/1 ML DISP.SYRIN SUBCUT SCH ×2 (10:13→21:50)
[2020-01-02] MEDS: ZINC SULFATE 220 MG CAPSULE NG SCH (10:16)
[2020-01-02] MEDS: CHOLECALCIFEROL (D3) 1,000 UNIT (25 MCG) TABLET NG SCH (10:16)
[2020-01-02] MEDS: ASCORBIC ACID 500 MG TABLET NG SCH ×2 (10:17→21:51)
[2020-01-02] MEDS: SILDENAFIL CITRATE 20 MG TABLET PO SCH (10:17)
[2020-01-02] MEDS: AMINO ACIDS 5 %/DEXTROSE 20 % 1,000 ML IV PRN (11:43)
[2020-01-02] MEDS: MIDAZOLAM HCL 50 MG/100 ML RTUINJ IV PRN ×2 (11:51→23:27)
[2020-01-02 19:44] LABS: ANION GAP 6 (5-19); BLOOD UREA NITROGEN 34 mg/dL (7-20); CALCIUM 8.2 mg/dL (8.4-10.2); CARBON DIOXIDE 35 mmol/L (22-30); CHLORIDE 119 mmol/L (98-107); GLUCOSE 168 mg/dL (75-110); POTASSIUM 4.2 mmol/L (3.6-5.0)
[2020-01-02] MEDS: INSULIN LISPRO 100 UNIT/ML 3 ML VIAL SUBCUT SCH ×2 (21:08→21:09)
[2020-01-02] MEDS: ASPIRIN 81 MG TABLET, CHEWABLE NG SCH (21:52)
[2020-01-03] MEDS: ALBUTEROL SULFATE 0.083% NEB 2.5 MG/3 ML AMPUL NEB SCH ×4 (02:28→20:20)
[2020-01-03] MEDS: IPRATROPIUM/ALBUTEROL 0.5-2.5 MG/3 ML AMPUL NEB SCH ×4 (02:28→20:20)
[2020-01-03 04:58] LABS: ARTERIAL BLOOD H2CO3 1.91 mmol/L (1.05-1.35); ARTERIAL BLOOD HCO3 32.8 mmol/L (20-24); ARTERIAL BLOOD PCO2 63.4 mmHg (35-45); ARTERIAL BLOOD PH 7.33 (7.35-7.45); ARTERIAL BLOOD TOTAL CO2 34.8 mmol/L (23-27)
[2020-01-03 05:01] LABS: ARTERIAL BLOOD FIO2 100%
[2020-01-03] MEDS: DEXAMETHASONE SOD PHOS INJ 10 MG/1 ML VIAL IV SCH ×3 (06:16→21:35)
[2020-01-03] MEDS: ACETAMINOPHEN 325 MG TABLET NG PRN ×2 (06:16→16:59)
[2020-01-03] MEDS: NORMAL SALINE 100 ML with INSULIN REGULAR, HUMAN 100 UNIT IV PRN ×4 (06:17→21:15)
[2020-01-03] MEDS: MIDAZOLAM HCL 50 MG/100 ML RTUINJ IV PRN ×2 (06:18→17:02)
[2020-01-03 06:38] LABS: ALBUMIN 2.9 g/dL (3.5-5.0); ALKALINE PHOSPHATASE 106 U/L (38-126); ASPARTATE AMINO TRANSFERASE 110 U/L (17-59); BILIRUBIN,DIRECT 0.4 mg/dL (0.0-0.4); BILIRUBIN,TOTAL 0.6 mg/dL (0.2-1.3); BLOOD UREA NITROGEN 32 mg/dL (7-20); CALCIUM 8.3 mg/dL (8.4-10.2); GLUCOSE 160 mg/dL (75-110); PHOSPHORUS 2.6 mg/dL (2.5-4.5); POTASSIUM 3.9 mmol/L (3.6-5.0)
[2020-01-03 06:43] LABS: CARBON DIOXIDE 38 mmol/L (22-30); CHLORIDE 119 mmol/L (98-107)
[2020-01-03 06:45] LABS: PREALBUMIN 7.2 mg/dL (17.6-36.0)
[2020-01-03 06:54] LABS: ANION GAP 2 (5-19)
[2020-01-03 07:05] LABS: ABSOLUTE MONOCYTES (AUTO) 0.6 10^3/uL (0.1-1.4); ABSOLUTE NEUT (AUTO) 14.7 10^3/uL (1.7-8.2); BASOPHILS % (AUTO) 0.1 % (0-2); HEMATOCRIT 37.6 % (37.9-51.0); HEMOGLOBIN 10.7 g/dL (13.5-17.0); LYMPHOCYTES % (AUTO) 5.9 % (13-45); MEAN CORPUSCULAR HEMOGLOBIN 25.1 pg (27.0-33.4); MEAN CORPUSCULAR HGB CONC 28.6 g/dL (32.0-36.0); MONOCYTES % (AUTO) 3.6 % (3-13); PLATELET COUNT 198 10^3/uL (150-450); RED BLOOD COUNT 4.28 10^6/uL (4.35-5.55); RED CELL DISTRIBUTION WIDTH 16.2 % (11.5-14.0); SEGMENTED NEUTROPHILS % (AUTO) 90.4 % (42-78); TOTAL CELLS COUNTED % (AUTO) 100 %; WHITE BLOOD COUNT 16.3 10^3/uL (4.0-10.5)
[2020-01-03 07:14] LABS: MEAN CORPUSCULAR VOLUME 88 fl (80-97)
--- NOTE | 2020-01-03 08:19 | PDOC CRITICAL CARE PROG REPORT ---
General Date:: 01/03/20 ICU Day:: 3 Ventilator Day:: 3 Hospital Day:: 9 Resuscitation Status: Full Code Events in the past 12 to 24 Hours:: Remains on ventilator, no real change. Needs more stable trach. Review of systems relevant to events:: Pulmonary, neurological Reason for ICU Addmission:: Intubation for Covid PNA. Now has trach, chest tube. - Medications: Medications reviewed and adjusted accordingly: Yes Vasopressors:: Epinaephrine on hold, levophed at 2 mcg. Sedation:: Precedex, versed. Physical Exam Vital Signs: Temp Pulse Resp BP Pulse Ox 98.1 F 108 H 35 H 104/68 95 01/03/20 07:38 01/03/20 05:58 01/03/20 07:27 01/03/20 07:27 01/03/20 07:27 Intake & Output 01/02/20 01/03/20 01/04/20 06:59 06:59 06:59 Intake Total 2173 1919 33 Output Total 1960 1579 75 Balance 213 340 -42 Weight 141.9 kg 138.6 kg Weight/Height Weight 138.6 kg Height 6 ft General appearance: PRESENT: no acute distress, obese Head exam: PRESENT: atraumatic, normocephalic Eye exam: PRESENT: conjunctiva pink, EOMI, PERRLA. ABSENT: scleral icterus Ear exam: PRESENT: normal external ear exam Mouth exam: PRESENT: moist, tongue midline Neck exam: PRESENT: tracheostomy Respiratory exam: PRESENT: crackles, rhonchi, symmetrical, tachypnea, other - R chest tube without air leak. Cardiovascular exam: PRESENT: RRR, tachycardia. ABSENT: diastolic murmur, rubs, systolic murmur Pulses: PRESENT: normal dorsalis pedis pul GI/Abdominal exam: PRESENT: normal bowel sounds, soft. ABSENT: distended, guarding, mass, organolmegaly, rebound, tenderness Rectal exam: PRESENT: deferred Gentrourinary exam: PRESENT: indwelling catheter Extremities exam: PRESENT: full ROM. ABSENT: calf tenderness, clubbing, pedal edema Musculoskeletal exam: PRESENT: normal inspection Neurological exam: PRESENT: other - He is both sedated and has rocuronium. There is no neuro exam. How ever despite this, he still has 4/4 twitches in hi R orbicularis oculi. Skin exam: PRESENT: dry, intact, warm. ABSENT: cyanosis, rash Tubes/Lines: PRESENT: Endotracheal Tube - As a trach tube., Chest Tube, Nasogastic Tube Laboratory/Radiographs Laboratory Results: 01/03/20 04:00 01/03/20 06:05 01/01/20 01/02/20 01/02/20 22:49 05:32 18:00 WBC 27.8 H RBC 5.06 Hgb 12.7 L Hct 41.7 MCV 82 MCH 25.0 L MCHC 30.4 L RDW 15.5 H Plt Count 327 Seg Neutrophils % Not Reportable Carbonic Acid HCO3/H2CO3 Ratio ABG pH ABG pCO2 ABG pO2 ABG HCO3 ABG O2 Saturation ABG Base Excess FiO2 Sodium Cancelled Potassium Cancelled Chloride Cancelled Carbon Dioxide Cancelled Anion Gap Cancelled BUN Cancelled Creatinine Cancelled Est GFR ( Amer) Cancelled Est GFR (Non-Af Amer) Cancelled Glucose Cancelled Calcium Cancelled Phosphorus Total Bilirubin AST Alkaline Phosphatase Total Protein Albumin Prealbumin Blood Type B POSITIVE Antibody Screen NEGATIVE 01/02/20 01/03/20 01/03/20 18:59 04:00 04:00 WBC RBC Hgb Hct MCV MCH MCHC RDW Plt Count Seg Neutrophils % Carbonic Acid 1.91 H HCO3/H2CO3 Ratio 17:1 ABG pH 7.33 L ABG pCO2 63.4 H ABG pO2 100.0 ABG HCO3 32.8 H ABG O2 Saturation 97.0 ABG Base Excess 5.0 FiO2 100% Sodium 159.8 H Cancelled Potassium 4.2 Cancelled Chloride 119 H Cancelled Carbon Dioxide 35 H Cancelled Anion Gap 6 Cancelled BUN 34 H Cancelled Creatinine 1.38 H Cancelled Est GFR ( Amer) > 60 Cancelled Est GFR (Non-Af Amer) Cancelled Glucose 168 H Cancelled Calcium 8.2 L Cancelled Phosphorus Cancelled Total Bilirubin Cancelled AST Cancelled Alkaline Phosphatase Cancelled Total Protein Cancelled Albumin Cancelled Prealbumin Cancelled Blood Type Antibody Screen 01/03/20 01/03/20 04:00 06:05 WBC 16.3 H RBC 4.28 L Hgb 10.7 L Hct 37.6 L MCV 88 D MCH 25.1 L MCHC 28.6 L RDW 16.2 H Plt Count 198 Seg Neutrophils % 90.4 H Carbonic Acid HCO3/H2CO3 Ratio ABG pH ABG pCO2 ABG pO2 ABG HCO3 ABG O2 Saturation ABG Base Excess FiO2 Sodium 159.0 H Potassium 3.9 Chloride 119 H Carbon Dioxide 38 H Anion Gap 2 L BUN 32 H Creatinine 1.21 Est GFR ( Amer) > 60 Est GFR (Non-Af Amer) Glucose 160 H Calcium 8.3 L Phosphorus 2.6 Total Bilirubin 0.6 AST 110 H Alkaline Phosphatase 106 Total Protein 6.0 L Albumin 2.9 L Prealbumin 7.2 L Blood Type Antibody Screen 12/25/19 15:34 Troponin I < 0.012 Impressions: PICC Line Insertion 12/31/19 00:00 IMPRESSION: SUCCESSFUL PLACEMENT OF A 5 FR DUAL LUMEN 43 CM PICC IN THE RIGHT BRACHIOCEPHALIC VEIN. All labs, radiographs, diagnostic studies and EKGs were personally reviewed: Yes In addition, reports of radiographic and diagnostic studies were read: Yes Assessment and Plan - Diagnosis (1) Acute respiratory failure with hypoxemia Is this a current diagnosis for this admission?: Yes Plan: He is still on 100% FIO2 and needs to be weaned down if possible. On 90% now. (2) Pneumonia due to COVID-19 virus Is this a current diagnosis for this admission?: Yes Plan: This is the cause of his current illness. (3) Tracheostomy in place Is this a current diagnosis for this admission?: Yes Plan: This was placed as an emergency 12/31. However it is a #7 ETT and needs to be changed to a more stable trach. I've spoken to Dr. Taylor 01/01 AM and plan is to leave as is and try to wean down FIO2 and place a formal, more stable trach this week. (4) Hyperglycemia due to type 2 diabetes mellitus Qualifiers: Diabetes mellitus white shoe examiner insulin use: with fdc use Qualified Code(s): E11.65 - Type 2 diabetes mellitus with hyperglycemia; Z79.4 - long-term (current) use of insulin Is this a current diagnosis for this admission?: Yes Plan: On a lower insulin drip rate. We are starting TF as well. (5) Morbid obesity Is this a current diagnosis for this admission?: Yes Plan: This is a recognized risk factor. (6) Hypernatremia Is this a current diagnosis for this admission?: Yes Plan: Level is about 160. D5W started and NS stopped. Plan Summary: Plan to wean igh FIO@ today, start TF. Hope to wean levophed off as well. Critical Time Critical Time (minutes): 35 Level of Care: ICU Anticipated discharge: Home Anticipated DC Timeframe: Other -: 1. The care of a critical patient is a dynamic process. This note is a outside industrial sales representative synopsis but static in nature. The timeframe for treatments given in order is not necessarily the actual time these treatments may have been done. 2. This patient requires critical care secondary to ongoing requirements for therapy not offered or safe outside the critical care environment. Transfer to a lower level of care will result in altered life or limb morbidity and morta lity. 3. Multidisciplinary rounds completed. 4. ABCDE bundle addressed.
[2020-01-03] MEDS: SILDENAFIL CITRATE 20 MG TABLET PO SCH (09:41)
[2020-01-03] MEDS: CHOLECALCIFEROL (D3) 1,000 UNIT (25 MCG) TABLET NG SCH (09:41)
[2020-01-03] MEDS: ZINC SULFATE 220 MG CAPSULE NG SCH (09:41)
[2020-01-03] MEDS: ENOXAPARIN SODIUM INJ 150 MG/1 ML DISP.SYRIN SUBCUT SCH (09:41)
[2020-01-03] MEDS: ASCORBIC ACID 500 MG TABLET NG SCH ×2 (09:41→16:59)
[2020-01-03] MEDS: INSULIN GLARGINE,HUM.REC.ANLOG 1,000 UNIT/10 ML VIAL SUBCUT SCH ×2 (09:45→21:36)
[2020-01-03] MEDS: DEXTROSE 5%-WATER 1000 ML 1,000 ML IV PRN (11:15)
[2020-01-03] MEDS: NORMAL SALINE 500 ML with ROCURONIUM BROMIDE 500 MG IV PRN ×2 (14:39)
[2020-01-03] MEDS ORDERED: MINERAL OIL/PETROLATUM,WHITE OPH OINT 3.5 GM OU PRN (16:27)
[2020-01-03 19:03] LABS: BLOOD UREA NITROGEN 33 mg/dL (7-20); CALCIUM 7.9 mg/dL (8.4-10.2); CARBON DIOXIDE 34 mmol/L (22-30); GLUCOSE 213 mg/dL (75-110)
[2020-01-03 19:09] LABS: CHLORIDE 118 mmol/L (98-107)
[2020-01-03 19:12] LABS: ANION GAP 5 (5-19)
[2020-01-03] MEDS: MORPHINE SULFATE 10 MG/ML INJ IV PRN (21:58)
[2020-01-03] MEDS: DEXTROSE 5%-WATER 250 ML with NOREPINEPHRINE BITARTRATE 4 MG IV PRN ×2 (22:01)
[2020-01-04] MEDS: ASPIRIN 81 MG TABLET, CHEWABLE NG SCH ×2 (00:04→23:02)
[2020-01-04] MEDS: ENOXAPARIN SODIUM INJ 150 MG/1 ML DISP.SYRIN SUBCUT SCH ×3 (00:04→23:03)
[2020-01-04] MEDS: MIDAZOLAM HCL 50 MG/100 ML RTUINJ IV PRN ×3 (01:00→18:24)
[2020-01-04] MEDS: IPRATROPIUM/ALBUTEROL 0.5-2.5 MG/3 ML AMPUL NEB SCH ×4 (03:02→23:32)
[2020-01-04] MEDS: ALBUTEROL SULFATE 0.083% NEB 2.5 MG/3 ML AMPUL NEB SCH ×4 (03:02→23:32)
[2020-01-04 05:12] LABS: INTERNATIONAL RATION (INR) 1.09; PROTHROMBIN TIME 14.3 SEC (11.4-15.4)
[2020-01-04 05:14] LABS: ARTERIAL BLOOD BASE EXCESS 6.6 mmol/L; ARTERIAL BLOOD FIO2 80%; ARTERIAL BLOOD H2CO3 1.72 mmol/L (1.05-1.35); ARTERIAL BLOOD HCO3 33.2 mmol/L (20-24); ARTERIAL BLOOD O2 SATURATION 96.1 % (94-98); ARTERIAL BLOOD PCO2 57.1 mmHg (35-45); ARTERIAL BLOOD PH 7.38 (7.35-7.45); ARTERIAL BLOOD PO2 85.6 mmHg (80-100); ARTERIAL BLOOD TOTAL CO2 34.9 mmol/L (23-27)
[2020-01-04 05:59] LABS: ANION GAP 5 (5-19); BLOOD UREA NITROGEN 38 mg/dL (7-20); CALCIUM 8.3 mg/dL (8.4-10.2); CARBON DIOXIDE 36 mmol/L (22-30); CHLORIDE 116 mmol/L (98-107); GLUCOSE 130 mg/dL (75-110); POTASSIUM 3.9 mmol/L (3.6-5.0)
[2020-01-04] MEDS: DEXAMETHASONE SOD PHOS INJ 10 MG/1 ML VIAL IV SCH ×3 (06:45→23:02)
[2020-01-04 06:53] LABS: ABSOLUTE LYMPHOCYTES (AUTO) 0.8 10^3/uL (0.5-4.7); ABSOLUTE MONOCYTES (AUTO) 0.6 10^3/uL (0.1-1.4); ABSOLUTE NEUT (AUTO) 14.9 10^3/uL (1.7-8.2); BASOPHILS % (AUTO) 0.3 % (0-2); HEMATOCRIT 35.2 % (37.9-51.0); HEMOGLOBIN 10.9 g/dL (13.5-17.0); LYMPHOCYTES % (AUTO) 5.2 % (13-45); MEAN CORPUSCULAR HEMOGLOBIN 24.7 pg (27.0-33.4); MEAN CORPUSCULAR HGB CONC 30.9 g/dL (32.0-36.0); MONOCYTES % (AUTO) 3.5 % (3-13); PLATELET COUNT 181 10^3/uL (150-450); TOTAL CELLS COUNTED % (AUTO) 100 %; WHITE BLOOD COUNT 16.4 10^3/uL (4.0-10.5)
[2020-01-04 06:56] LABS: MEAN CORPUSCULAR VOLUME 80 fl (80-97)
[2020-01-04] MEDS ORDERED: ACETAMINOPHEN SOLN 325 MG/10.15 ML UDCUP NG PRN (07:46)
[2020-01-04] MEDS: DEXTROSE 5%-WATER 1000 ML 1,000 ML IV PRN (08:25)
[2020-01-04] MEDS: NORMAL SALINE 100 ML with INSULIN REGULAR, HUMAN 100 UNIT IV PRN ×2 (09:17)
[2020-01-04] MEDS: INSULIN GLARGINE,HUM.REC.ANLOG 1,000 UNIT/10 ML VIAL SUBCUT SCH ×2 (09:18→23:02)
[2020-01-04] MEDS: ASCORBIC ACID 500 MG TABLET NG SCH ×2 (09:23→18:21)
[2020-01-04] MEDS: SILDENAFIL CITRATE 20 MG TABLET NG SCH (09:23)
[2020-01-04] MEDS: CHOLECALCIFEROL (D3) 1,000 UNIT (25 MCG) TABLET NG SCH (09:23)
[2020-01-04] MEDS: ZINC SULFATE 220 MG CAPSULE NG SCH (09:23)
[2020-01-04] MEDS ORDERED: FAT EMULSIONS 250 ML IV SCH (10:00)
[2020-01-04 12:01] LABS: APPEARANCE,URINE SLIGHTLY-CLOUDY; BILIRUBIN,URINE NEGATIVE (NEGATIVE); COLOR,URINE YELLOW; GLUCOSE, URINE NEGATIVE (NEGATIVE); KETONES,URINE NEGATIVE (NEGATIVE); LEUKOCYTE ESTERASE,URINE NEGATIVE (NEGATIVE); NITRITE,URINE NEGATIVE (NEGATIVE); PROTEIN,URINE 30 mg/dL (NEGATIVE); URINE SPECIFIC GRAVITY 1.021; UROBILINOGEN,URINE NEGATIVE mg/dL (<2.0)
[2020-01-04 12:14] LABS: ANION GAP 6 (5-19); BLOOD UREA NITROGEN 38 mg/dL (7-20); CARBON DIOXIDE 34 mmol/L (22-30); CHLORIDE 116 mmol/L (98-107); GLUCOSE 148 mg/dL (75-110); POTASSIUM 4.1 mmol/L (3.6-5.0)
[2020-01-04] MEDS: NORMAL SALINE 500 ML with ROCURONIUM BROMIDE 500 MG IV PRN ×2 (13:03)
[2020-01-04] MEDS: FAMOTIDINE INJ/PF 20 MG/2 ML SDV IV SCH ×2 (13:04→23:03)
--- NOTE | 2020-01-04 18:40 | PDOC CRITICAL CARE PROG REPORT ---
General Date:: 01/04/20 ICU Day:: 4 Ventilator Day:: 4 Hospital Day:: 11 Resuscitation Status: Full Code Events in the past 12 to 24 Hours:: This 54-year-old -[place] male was hospitalized on 12/25/2027 with COVID- 19 pneumonia. He was admitted to the hospitalist service but deteriorated to the point of being BiPAP dependent. Despite BiPAP support, the patient became progressively more hypoxemic, more dyspneic and was transferred to the ICU for endotracheal intubation and mechanical ventilatory support. At the time of attempted endotracheal intubation, the patient's oropharynx was found to be obstructed and was not amenable to safe endotracheal intubation. An emergency cricothyrotomy was performed by Dr. Taylor, allowing passage of an endotracheal tube, which was sutured in place. 01/03: Remains intubated severe via endotracheal tube through cricothyrotomy. Paralyzed, sedated. Case discussed with Dr. Taylor. Currently, on tube feeds (Glucerna). Review of systems relevant to events:: Pulmonary, neurological Reason for ICU Addmission:: Intubation for Covid PNA. Now has trach, chest tube. - Medications: Medications reviewed and adjusted accordingly: Yes Sedation:: Versed/morphine Physical Exam Vital Signs: Temp Pulse Resp BP Pulse Ox 98.3 F 102 H 35 H 98/69 L 96 01/04/20 12:00 01/04/20 12:00 01/04/20 12:27 01/04/20 12:27 01/04/20 12:27 Intake & Output 01/03/20 01/04/20 01/05/20 06:59 06:59 06:59 Intake Total 1919 1248 1582 Output Total 1579 770 335 Balance 762 673 0724 Weight 138.6 kg 142.5 kg 142.5 kg Weight/Height Weight 142.5 kg Height 1.83 m General appearance: PRESENT: no acute distress, well-developed, well-nourished, other - Paralyzed Head exam: PRESENT: atraumatic, normocephalic Mouth exam: PRESENT: moist, tongue midline Neck exam: PRESENT: other - Endotracheal tube in situ via cricothyrotomy. ABSENT: carotid bruit, JVD, lymphadenopathy, tracheal deviation Respiratory exam: PRESENT: decreased breath sounds. ABSENT: rales, rhonchi, wheezes Cardiovascular exam: PRESENT: RRR. ABSENT: diastolic murmur, rubs, systolic murmur Pulses: PRESENT: normal dorsalis pedis pul GI/Abdominal exam: PRESENT: normal bowel sounds, soft. ABSENT: distended, guarding, mass, organolmegaly, rebound, tenderness Musculoskeletal exam: PRESENT: normal inspection. ABSENT: deformity Neurological exam: PRESENT: other - Paralyzed, sedated Skin exam: PRESENT: dry, intact, warm. ABSENT: cyanosis, rash Tubes/Lines: PRESENT: Endotracheal Tube, Central Line - Right PICC, Other - Orogastric Laboratory/Radiographs Laboratory Results: 01/04/20 06:14 01/04/20 11:33 01/03/20 01/04/20 01/04/20 16:20 04:10 04:10 WBC Cancelled RBC Cancelled Hgb Cancelled Hct Cancelled MCV Cancelled MCH Cancelled MCHC Cancelled RDW Cancelled Plt Count Cancelled Seg Neutrophils % Carbonic Acid HCO3/H2CO3 Ratio ABG pH ABG pCO2 ABG pO2 ABG HCO3 ABG O2 Saturation ABG Base Excess FiO2 Sodium 156.8 H 157.1 H Potassium 4.0 3.9 Chloride 118 H 116 H Carbon Dioxide 34 H 36 H Anion Gap 5 5 BUN 33 H 38 H Creatinine 1.09 1.15 Est GFR ( Amer) > 60 > 60 Glucose 213 H 130 H Calcium 7.9 L 8.3 L Urine Color Urine Appearance Urine pH Ur Specific [place] Urine Protein Urine Glucose (UA) Urine Ketones Urine Blood Urine Nitrite Ur Leukocyte Esterase Urine WBC (Auto) Urine RBC (Auto) 01/04/20 01/04/20 01/04/20 04:10 06:14 11:10 WBC 16.4 H RBC 4.40 Hgb 10.9 L Hct 35.2 L MCV 80 D MCH 24.7 L MCHC 30.9 L RDW 15.0 H Plt Count 181 Seg Neutrophils % 91.0 H Carbonic Acid 1.72 H HCO3/H2CO3 Ratio 19:1 ABG pH 7.38 ABG pCO2 57.1 H ABG pO2 85.6 ABG HCO3 33.2 H ABG O2 Saturation 96.1 ABG Base Excess 6.6 FiO2 80% Sodium Potassium Chloride Carbon Dioxide Anion Gap BUN Creatinine Est GFR ( Amer) Glucose Calcium Urine Color YELLOW Urine Appearance SLIGHTLY-CLOUDY Urine pH 5.0 Ur Specific [place] 1.021 Urine Protein 30 H Urine Glucose (UA) NEGATIVE Urine Ketones NEGATIVE Urine Blood NEGATIVE Urine Nitrite NEGATIVE Ur Leukocyte Esterase NEGATIVE Urine WBC (Auto) 4 Urine RBC (Auto) 4 01/04/20 11:33 WBC RBC Hgb Hct MCV MCH MCHC RDW Plt Count Seg Neutrophils % Carbonic Acid HCO3/H2CO3 Ratio ABG pH ABG pCO2 ABG pO2 ABG HCO3 ABG O2 Saturation ABG Base Excess FiO2 Sodium 156.0 H Potassium 4.1 Chloride 116 H Carbon Dioxide 34 H Anion Gap 6 BUN 38 H Creatinine 1.05 Est GFR ( Amer) > 60 Glucose 148 H Calcium 8.0 L Urine Color Urine Appearance Urine pH Ur Specific [place] Urine Protein Urine Glucose (UA) Urine Ketones Urine Blood Urine Nitrite Ur Leukocyte Esterase Urine WBC (Auto) Urine RBC (Auto) 12/25/19 15:34 Troponin I < 0.012 Impressions: PICC Line Insertion 12/31/19 00:00 IMPRESSION: SUCCESSFUL PLACEMENT OF A 5 FR DUAL LUMEN 43 CM PICC IN THE RIGHT BRACHIOCEPHALIC VEIN. All labs, radiographs, diagnostic studies and EKGs were personally reviewed: Yes In addition, reports of radiographic and diagnostic studies were read: Yes Assessment and Plan - Diagnosis (1) Acute respiratory failure with hypoxemia Is this a current diagnosis for this admission?: Yes Plan: Maintain FiO2 100%. Wean PEEP as tolerated. Stop TPN. Continue tube feeds. Titrate ventilator settings based on ABG results. We will maintain the airway via cricothyrotomy. However, I have asked Dr. Taylor just postpone scheduling for finalization of his tracheostomy, in hopes of determining whether mechanical ventilatory support via tracheostomy will, indeed, be feasible. If the patient trends toward needing higher PEEP, this airway access may proved to be suboptimal. On the other hand, if the patient has decreasing PEEP requirements, it would almost seem fortuitous that the patient has surgically secured airway access. (2) Hyperglycemia due to type 2 diabetes mellitus Qualifiers: Diabetes mellitus [facility] insulin use: with [facility] use Qualified Code(s): E11.65 - Type 2 diabetes mellitus with hyperglycemia; Z79.4 - custodial (current) use of insulin Is this a current diagnosis for this admission?: Yes (3) Malnutrition Qualifiers: Malnutrition type: unspecified type Qualified Code(s): E46 - Unspecified protein-calorie malnutrition Is this a current diagnosis for this admission?: Yes Plan: Stop TPN. Continue Glucerna. Advance infusion rate to goal, as tolerated. Add Prosource. (4) Morbid obesity Is this a current diagnosis for this admission?: Yes (5) Pneumonia due to COVID-19 virus Is this a current diagnosis for this admission?: Yes Plan: Received 1 unit of convalescent plasma. Famotidine for GI prophylaxis. This is the cause of his current illness. Critical Time Critical Time (minutes): 60 Level of Care: ICU -: 1. The care of a critical patient is a dynamic process. This note is a livestock sales representative synopsis but static in nature. The timeframe for treatments given in order is not necessarily the actual time these treatments may have been done. 2. This patient requires critical care secondary to ongoing requirements for therapy not offered or safe outside the critical care environment. Transfer to a lower level of care will result in altered life or limb morbidity and mortal ity. 3. Multidisciplinary rounds completed. 4. ABCDE bundle addressed.
[2020-01-05 00:13] LABS: APPEARANCE,URINE SLIGHTLY-CLOUDY
[2020-01-05 00:16] LABS: BILIRUBIN,URINE NEGATIVE (NEGATIVE); COLOR,URINE YELLOW; GLUCOSE, URINE NEGATIVE (NEGATIVE)
[2020-01-05 00:17] LABS: KETONES,URINE NEGATIVE (NEGATIVE); LEUKOCYTE ESTERASE,URINE NEGATIVE (NEGATIVE); NITRITE,URINE NEGATIVE (NEGATIVE); PROTEIN,URINE 30 mg/dL (NEGATIVE); URINE SPECIFIC GRAVITY 1.026
--- NOTE | 2020-01-05 00:22 | RADIOLOGY REPORT (SQ) ---
EXAM DESCRIPTION: XR CHEST 1 VIEW COMPLETED DATE/TME: 01/04/2020 00:00 CLINICAL HISTORY: 54 years, Male, NG placement COMPARISON: Multiple priors, most recent from 01/01/2020 NUMBER OF VIEWS: 2 TECHNIQUE: 2 frontal views of the chest/abdomen were acquired LIMITATIONS: None. FINDINGS: Endotracheal tube tip is located within the trachea, proximally 5.1 cm above the arthur. Left-sided chest tube is in position. However, it appears kinked as it enters the left hemithorax with the tip potentially located within the lateral aspect of the left hemithorax or within the subcutaneous soft tissues though the latter is favored. Enteric drainage tube tip projects about the gastric fundus. Right-sided PICC tip is located within the SVC. Cardiac and mediastinal contours are stable. Widespread bilateral airspace disease appears improved from the previous examination dated 01/01/2020. No definite pneumothorax. There are likely trace bilateral pleural effusions. IMPRESSION: Enteric drainage tube tip is located within the gastric fundus. Improved widespread bilateral airspace disease. Pre-existing left-sided chest tube appears kinked as it enters the left hemithorax. The distal end of the chest tube appears to be located within the subcutaneous soft tissues. copyright 2010 [employer]- All Rights Reserved
[2020-01-05 01:05] LABS: PROTHROMBIN TIME 14.4 SEC (11.4-15.4)
[2020-01-05 01:06] LABS: PARTIAL THROMBOPLASTIN TIME 41.4 SEC (23.5-35.8)
[2020-01-05 01:09] LABS: HEMATOCRIT 34.7 % (37.9-51.0); HEMOGLOBIN 10.7 g/dL (13.5-17.0); MEAN CORPUSCULAR HEMOGLOBIN 24.9 pg (27.0-33.4); MEAN CORPUSCULAR HGB CONC 30.8 g/dL (32.0-36.0); MEAN CORPUSCULAR VOLUME 81 fl (80-97); PLATELET COUNT 206 10^3/uL (150-450); RED CELL DISTRIBUTION WIDTH 14.8 % (11.5-14.0); WHITE BLOOD COUNT 14.6 10^3/uL (4.0-10.5)
[2020-01-05] MEDS ORDERED: HEPARIN SOD (PORCINE) 1,000 UNIT/ML 10 ML VIAL IV PRN (01:21)
[2020-01-05] MEDS: HEPARIN SODIUM,PORCINE/D5W 25,000 UNIT/250 ML RTUINJ IV PRN ×2 (01:28→18:02)
[2020-01-05 02:10] LABS: ABSOLUTE LYMPHOCYTES# (MANUAL) 1.6 10^3/uL (0.5-4.7); ABSOLUTE MONOCYTES # (MANUAL) 0.3 10^3/uL (0.1-1.4); BAND NEUTROPHILS % (MANUAL) 1 % (3-5); BASOPHILS % (MANUAL) 0 % (0-2); EOSINOPHILS % (MANUAL) 0 % (0-6); LYMPHOCYTES % (MANUAL) 11 % (13-45); MONOCYTES % (MANUAL) 2 % (3-13); SEGMENTED NEUTROPHILS % (MAN) 86 % (42-78); TOTAL CELLS COUNTED 100
[2020-01-05 02:11] LABS: ANISOCYTOSIS SLIGHT; POIKILOCYTOSIS SLIGHT; TOXIC GRANULATION SLIGHT
[2020-01-05 02:12] LABS: OVALOCYTES SLIGHT; PLATELET COMMENT ADEQUATE; SCHISTOCYTES SLIGHT; TEAR DROP CELLS SLIGHT
[2020-01-05] MEDS: IPRATROPIUM/ALBUTEROL 0.5-2.5 MG/3 ML AMPUL NEB SCH ×4 (02:24→22:03)
[2020-01-05] MEDS: MIDAZOLAM HCL 50 MG/100 ML RTUINJ IV PRN ×3 (02:44→18:00)
[2020-01-05] MEDS: NORMAL SALINE 100 ML with INSULIN REGULAR, HUMAN 100 UNIT IV PRN ×4 (03:20→18:02)
[2020-01-05] MEDS: ALBUTEROL SULFATE 0.083% NEB 2.5 MG/3 ML AMPUL NEB SCH ×2 (03:36→08:49)
[2020-01-05 04:42] LABS: ARTERIAL BLOOD BASE EXCESS 5.7 mmol/L; ARTERIAL BLOOD H2CO3 1.63 mmol/L (1.05-1.35); ARTERIAL BLOOD HCO3 31.8 mmol/L (20-24); ARTERIAL BLOOD O2 SATURATION 92.8 % (94-98); ARTERIAL BLOOD PH 7.39 (7.35-7.45); ARTERIAL BLOOD PO2 66.9 mmHg (80-100); ARTERIAL BLOOD TOTAL CO2 33.5 mmol/L (23-27)
[2020-01-05 04:43] LABS: ARTERIAL BLOOD FIO2 100%
[2020-01-05 04:44] LABS: HEMATOCRIT 32.8 % (37.9-51.0); HEMOGLOBIN 10.3 g/dL (13.5-17.0); MEAN CORPUSCULAR HEMOGLOBIN 25.1 pg (27.0-33.4); MEAN CORPUSCULAR HGB CONC 31.3 g/dL (32.0-36.0); MEAN CORPUSCULAR VOLUME 80 fl (80-97); PLATELET COUNT 175 10^3/uL (150-450); RED BLOOD COUNT 4.09 10^6/uL (4.35-5.55); RED CELL DISTRIBUTION WIDTH 15.2 % (11.5-14.0); WHITE BLOOD COUNT 11.6 10^3/uL (4.0-10.5)
[2020-01-05 05:06] LABS: ALBUMIN 2.4 g/dL (3.5-5.0); ALKALINE PHOSPHATASE 115 U/L (38-126); ASPARTATE AMINO TRANSFERASE 60 U/L (17-59); BILIRUBIN,DIRECT 0.4 mg/dL (0.0-0.4); BILIRUBIN,TOTAL 0.5 mg/dL (0.2-1.3); BLOOD UREA NITROGEN 43 mg/dL (7-20); CALCIUM 8.1 mg/dL (8.4-10.2); CARBON DIOXIDE 37 mmol/L (22-30); GLUCOSE 154 mg/dL (75-110); PHOSPHORUS 3.6 mg/dL (2.5-4.5); POTASSIUM 4.6 mmol/L (3.6-5.0); TOTAL PROTEIN 5.2 g/dL (6.3-8.2)
[2020-01-05 05:11] LABS: CHLORIDE 116 mmol/L (98-107)
[2020-01-05 05:12] LABS: ANION GAP 2 (5-19)
[2020-01-05 05:25] LABS: ABSOLUTE LYMPHOCYTES# (MANUAL) 0.9 10^3/uL (0.5-4.7); ABSOLUTE MONOCYTES # (MANUAL) 0.5 10^3/uL (0.1-1.4); BAND NEUTROPHILS % (MANUAL) 3 % (3-5); BASOPHILS % (MANUAL) 0 % (0-2); EOSINOPHILS % (MANUAL) 0 % (0-6); LYMPHOCYTES % (MANUAL) 8 % (13-45); METAMYELOCYTES % (MANUAL) 1 % (0-1); MONOCYTES % (MANUAL) 4 % (3-13); SEGMENTED NEUTROPHILS % (MAN) 84 % (42-78); TOTAL CELLS COUNTED 100
[2020-01-05 05:26] LABS: HYPOCHROMASIA SLIGHT; PLATELET COMMENT ADEQUATE; SCHISTOCYTES SLIGHT; TOXIC GRANULATION SLIGHT
[2020-01-05] MEDS: DEXAMETHASONE SOD PHOS INJ 10 MG/1 ML VIAL IV SCH ×3 (06:28→23:00)
[2020-01-05] MEDS: NORMAL SALINE 500 ML with ROCURONIUM BROMIDE 500 MG IV PRN ×2 (08:06)
--- NOTE | 2020-01-05 08:28 | RADIOLOGY REPORT (SQ) ---
EXAM DESCRIPTION: CHEST SINGLE VIEW IMAGES COMPLETED DATE/TIME: 01/05/2020 8:17 am REASON FOR STUDY: ETT position COMPARISON: 01/04/2020. EXAM PARAMETERS: NUMBER OF VIEWS: One view. TECHNIQUE: Single frontal radiographic view of the chest acquired. RADIATION DOSE: NA LIMITATIONS: None. FINDINGS: LUNGS AND PLEURA: Diffuse airspace disease. No pneumothorax. MEDIASTINUM AND HILAR STRUCTURES: No masses. Contour normal. HEART AND VASCULAR STRUCTURES: Heart normal in size. Normal vasculature. BONES: No acute findings. HARDWARE: Left side chest tube with the tip located in the soft tissues of the left chest wall and no t in the hemithorax. Stable endotracheal tube, nasogastric tube, and PICC line. OTHER: No other significant finding. IMPRESSION: CHEST TUBE DESCRIBED, IN THE SOFT TISSUES AND NOT IN THE HEMITHORAX. OTHERWISE NO CH MARLO. COMMENT: The findings were sent to the Radiology Results Communication Center at 08:21 on 0 to be communicated to a licensed caregiver. TECHNICAL DOCUMENTATION: JOB ID: [id number] 2010 [employer]- All Rights Reserved Reading location - IP/workstation name: [email or web address]
[2020-01-05] MEDS ORDERED: ALBUTEROL SULFATE 0.083% NEB 2.5 MG/3 ML AMPUL NEB PRN ×2 (08:29→22:29)
[2020-01-05] MEDS: ENOXAPARIN SODIUM INJ 150 MG/1 ML DISP.SYRIN SUBCUT SCH (08:59)
[2020-01-05] MEDS: FAMOTIDINE INJ/PF 20 MG/2 ML SDV IV SCH ×2 (09:06→23:00)
[2020-01-05] MEDS: INSULIN GLARGINE,HUM.REC.ANLOG 1,000 UNIT/10 ML VIAL SUBCUT SCH ×2 (09:06→23:00)
[2020-01-05] MEDS: CHOLECALCIFEROL (D3) 1,000 UNIT (25 MCG) TABLET NG SCH (09:07)
[2020-01-05] MEDS: ASCORBIC ACID 500 MG TABLET NG SCH ×2 (09:07→18:33)
[2020-01-05] MEDS: ZINC SULFATE 220 MG CAPSULE NG SCH (09:07)
[2020-01-05] MEDS: SILDENAFIL CITRATE 20 MG TABLET NG SCH (09:07)
--- NOTE | 2020-01-05 17:22 | RADIOLOGY REPORT (SQ) ---
EXAM DESCRIPTION: CHEST SINGLE VIEW IMAGES COMPLETED DATE/TIME: 01/05/2020 5:11 pm REASON FOR STUDY: pneumothorax, chest tube (L) COMPARISON: None. EXAM PARAMETERS: NUMBER OF VIEWS: One view. TECHNIQUE: Single frontal radiographic view of the chest acquired. RADIATION DOSE: NA LIMITATIONS: None. FINDINGS: LUNGS AND PLEURA: Diffuse multifocal airspace disease, stable. No large effusion. No no appreciable pneumothorax. MEDIASTINUM AND HILAR STRUCTURES: Stable. HEART AND VASCULAR STRUCTURES: Stable. BONES: No acute fracture. HARDWARE: Large bore left-sided chest tube distal tip still overlies the extra thoracic soft tissues. Endotracheal tube tip overlies midthoracic trachea. Right approach PICC tip terminates at SVC. En teric tube tip overlies gastric fundus. OTHER: No other significant finding. IMPRESSION: 1. Large bore left-sided chest tube with distal tip still overlying the extra thoracic soft tissues. No appreciable pneumothorax. 2. Persistent diffuse bilateral airspace disease. TECHNICAL DOCUMENTATION: JOB ID: [id number] 2010 [employer]- All Rights Reserved Reading location - IP/workstation name: [email or web address]
--- NOTE | 2020-01-05 19:23 | PDOC CRITICAL CARE PROG REPORT ---
General Date:: 01/05/20 ICU Day:: 5 Ventilator Day:: 5 Hospital Day:: 12 Resuscitation Status: Full Code Events in the past 12 to 24 Hours:: This 54-year-old -[place] male was hospitalized on 12/25/2027 with COVID- 19 pneumonia. He was admitted to the hospitalist service but deteriorated to the point of being BiPAP dependent. Despite BiPAP support, the patient became progressively more hypoxemic, more dyspneic and was transferred to the ICU for endotracheal intubation and mechanical ventilatory support. At the time of attempted endotracheal intubation, the patient's oropharynx was found to be obstructed and was not amenable to safe endotracheal intubation. An emergency cricothyrotomy was performed by Dr. Taylor, allowing passage of an endotracheal tube, which was sutured in place. 01/03: Remains intubated severe via endotracheal tube through cricothyrotomy. Paralyzed, sedated. Case discussed with Dr. Taylor. Currently, on tube feeds (Glucerna). 01/04: Remains intubated. Endotracheal tube via cricothyrotomy. Paralyzed, sedated. Left chest tube in situ. No airleak. Has been placed under stress throughout the morning. Chest x-ray suggest that the chest tube is no longer intrathoracic in placement. Sodium still elevated, 155. He remains on high- dose Lantus along with continuous insulin infusion. Sugars have been stable, albeit with high insulin requirements. Review of systems relevant to events:: Pulmonary, neurological Reason for ICU Addmission:: Intubation for Covid PNA. Now has trach, chest tube. Physical Exam Vital Signs: Temp Pulse Resp BP Pulse Ox 98.8 F 107 H 35 H 111/55 L 88 L 01/05/20 12:00 01/05/20 14:00 01/05/20 14:00 01/05/20 14:00 01/05/20 14:00 Intake & Output 01/04/20 01/05/20 01/06/20 06:59 06:59 06:59 Intake Total 1248 3023 253 Output Total 770 1450 675 Balance 478 1573 -422 Weight 142.5 kg 146.5 kg Weight/Height Weight 146.5 kg Height 1.83 m General appearance: PRESENT: no acute distress, well-developed, well-nourished Head exam: PRESENT: atraumatic, normocephalic Eye exam: PRESENT: conjunctiva pink, EOMI, PERRLA. ABSENT: scleral icterus Mouth exam: PRESENT: moist, tongue midline Neck exam: PRESENT: other - Cricothyrotomy. ABSENT: carotid bruit, JVD, lymphadenopathy, thyromegaly Respiratory exam: PRESENT: decreased breath sounds. ABSENT: rales, rhonchi, wheezes Cardiovascular exam: PRESENT: RRR. ABSENT: diastolic murmur, rubs, systolic murmur Pulses: PRESENT: normal dorsalis pedis pul Gentrourinary exam: PRESENT: indwelling catheter Extremities exam: PRESENT: full ROM. ABSENT: calf tenderness, clubbing, pedal edema Neurological exam: PRESENT: other - Paralyzed, sedated Psychiatric exam: ABSENT: agitated, anxious Skin exam: PRESENT: dry, intact, warm. ABSENT: cyanosis, rash Tubes/Lines: PRESENT: Endotracheal Tube, Central Line Laboratory/Radiographs Laboratory Results: 01/05/20 04:20 01/05/20 04:20 01/04/20 01/05/20 01/05/20 23:45 00:50 04:20 WBC 14.6 H RBC 4.30 L Hgb 10.7 L Hct 34.7 L MCV 81 MCH 24.9 L MCHC 30.8 L RDW 14.8 H Plt Count 206 Seg Neutrophils % Not Reportable Carbonic Acid 1.63 H HCO3/H2CO3 Ratio 19:1 ABG pH 7.39 ABG pCO2 54.0 H ABG pO2 66.9 L ABG HCO3 31.8 H ABG O2 Saturation 92.8 L ABG Base Excess 5.7 FiO2 100% Sodium Potassium Chloride Carbon Dioxide Anion Gap BUN Creatinine Est GFR ( Amer) Glucose Calcium Phosphorus Magnesium Total Bilirubin AST Alkaline Phosphatase Total Protein Albumin Urine Color YELLOW Urine Appearance SLIGHTLY-CLOUDY Urine pH 6.0 Ur Specific [place] 1.026 Urine Protein 30 H Urine Glucose (UA) NEGATIVE Urine Ketones NEGATIVE Urine Blood NEGATIVE Urine Nitrite NEGATIVE Ur Leukocyte Esterase NEGATIVE Urine WBC (Auto) 3 Urine RBC (Auto) 1 01/05/20 01/05/20 04:20 04:20 WBC 11.6 H RBC 4.09 L Hgb 10.3 L Hct 32.8 L MCV 80 MCH 25.1 L MCHC 31.3 L RDW 15.2 H Plt Count 175 Seg Neutrophils % Not Reportable Carbonic Acid HCO3/H2CO3 Ratio ABG pH ABG pCO2 ABG pO2 ABG HCO3 ABG O2 Saturation ABG Base Excess FiO2 Sodium 155.3 H Potassium 4.6 Chloride 116 H Carbon Dioxide 37 H Anion Gap 2 L BUN 43 H Creatinine 1.00 Est GFR ( Amer) > 60 Glucose 154 H Calcium 8.1 L Phosphorus 3.6 Magnesium 3.5 H Total Bilirubin 0.5 AST 60 H Alkaline Phosphatase 115 Total Protein 5.2 L Albumin 2.4 L Urine Color Urine Appearance Urine pH Ur Specific [place] Urine Protein Urine Glucose (UA) Urine Ketones Urine Blood Urine Nitrite Ur Leukocyte Esterase Urine WBC (Auto) Urine RBC (Auto) 12/25/19 15:34 Troponin I < 0.012 Impressions: PICC Line Insertion 12/31/19 00:00 IMPRESSION: SUCCESSFUL PLACEMENT OF A 5 FR DUAL LUMEN 43 CM PICC IN THE RIGHT BRACHIOCEPHALIC VEIN. Chest X-Ray 01/05/20 07:40 IMPRESSION: CHEST TUBE DESCRIBED, IN THE SOFT TISSUES AND NOT IN THE H EMITHORAX. OTHERWISE NO CHANGE. All labs, radiographs, diagnostic studies and EKGs were personally reviewed: Yes In addition, reports of radiographic and diagnostic studies were read: Yes Assessment and Plan - Diagnosis (1) Acute respiratory failure with hypoxemia Is this a current diagnosis for this admission?: Yes Plan: Maintain FiO2 100%. Wean PEEP as tolerated. Stop TPN. Continue tube feeds. Titrate ventilator settings based on ABG results. We will maintain the airway via cricothyrotomy. However, I have asked Dr. Taylor just postpone scheduling for finalization of his tracheostomy, in hopes of determining whether mechanical ventilatory support via tracheostomy will, indeed, be feasible. If the patient trends toward needing higher PEEP, this airway access may proved to be suboptimal. On the other hand, if the patient has decreasing PEEP requirements, it would almost seem fortuitous that the patient has surgically secured airway access. Chest tube was apparently placed for pneumomediastinum and concern for pneum othorax. At this point, there is no complete filling reason to continue maintaining this chest tube, provided that repeat chest x-ray (under stress) (2) Hyperglycemia due to type 2 diabetes mellitus Qualifiers: Diabetes mellitus intermediate card tender insulin use: with intermediate card tender use Qualified Code(s): E11.65 - Type 2 diabetes mellitus with hyperglycemia; Z79.4 - long term care pharmacist (current) use of insulin Is this a current diagnosis for this admission?: Yes Plan: On a lower insulin drip rate. We are starting TF as well. (3) Malnutrition Qualifiers: Malnutrition type: unspecified type Qualified Code(s): E46 - Unspecified protein-calorie malnutrition Is this a current diagnosis for this admission?: Yes Plan: Stop TPN. Continue Glucerna. Advance infusion rate to goal, as tolerated. Add Prosource. (4) Morbid obesity Is this a current diagnosis for this admission?: Yes Plan: This is a recognized risk factor. (5) Pneumonia due to COVID-19 virus Is this a current diagnosis for this admission?: Yes Plan: Received 1 unit of convalescent plasma. Famotidine for GI prophylaxis. This is the cause of his current illness. Critical Time Critical Time (minutes): 60 Level of Care: ICU -: 1. The care of a critical patient is a dynamic process. This note is a sales representative adding machines synopsis but static in nature. The timeframe for treatments given in order is not necessarily the actual time these treatments may have been done. 2. This patient requires critical care secondary to ongoing requirements for therapy not offered or safe outside the critical care environment. Transfer to a lower level of care will result in altered life or limb morbidity and mortality. 3. Multidisciplinary rounds completed. 4. ABCDE bundle addressed.
[2020-01-05] MEDS: BUDESONIDE NEB 0.25 MG/2 ML AMPUL NEB SCH (22:03)
[2020-01-05] MEDS: ASPIRIN 81 MG TABLET, CHEWABLE NG SCH (23:00)
[2020-01-06 00:30] LABS: BLOOD UREA NITROGEN 39 mg/dL (7-20); CARBON DIOXIDE 36 mmol/L (22-30); CHLORIDE 115 mmol/L (98-107); GLUCOSE 120 mg/dL (75-110); POTASSIUM 4.9 mmol/L (3.6-5.0)
[2020-01-06 00:32] LABS: ANION GAP 2 (5-19)
[2020-01-06] MEDS ORDERED: DEXTROSE 5%-WATER 1000 ML 1,000 ML IV PRN (02:32)
[2020-01-06] MEDS: ALBUTEROL SULFATE 0.083% NEB 2.5 MG/3 ML AMPUL NEB SCH ×4 (02:33→20:56)
[2020-01-06] MEDS: MIDAZOLAM HCL 50 MG/100 ML RTUINJ IV PRN ×3 (03:08→22:26)
[2020-01-06 03:39] LABS: HEMOGLOBIN 9.9 g/dL (13.5-17.0); MEAN CORPUSCULAR HEMOGLOBIN 25.1 pg (27.0-33.4); MEAN CORPUSCULAR VOLUME 81 fl (80-97); PLATELET COUNT 178 10^3/uL (150-450); RED BLOOD COUNT 3.96 10^6/uL (4.35-5.55); RED CELL DISTRIBUTION WIDTH 14.8 % (11.5-14.0); WHITE BLOOD COUNT 13.4 10^3/uL (4.0-10.5)
[2020-01-06 03:42] LABS: APPEARANCE,URINE SLIGHTLY-CLOUDY; BILIRUBIN,URINE NEGATIVE (NEGATIVE); COLOR,URINE YELLOW; GLUCOSE, URINE NEGATIVE (NEGATIVE); KETONES,URINE NEGATIVE (NEGATIVE); LEUKOCYTE ESTERASE,URINE NEGATIVE (NEGATIVE); NITRITE,URINE NEGATIVE (NEGATIVE); PROTEIN,URINE 30 mg/dL (NEGATIVE); URINE SPECIFIC GRAVITY 1.023
[2020-01-06] MEDS: NORMAL SALINE 500 ML with ROCURONIUM BROMIDE 500 MG IV PRN ×4 (03:45→22:25)
[2020-01-06] MEDS: NORMAL SALINE 100 ML with INSULIN REGULAR, HUMAN 100 UNIT IV PRN ×4 (03:48→16:03)
[2020-01-06 03:52] LABS: ARTERIAL BLOOD BASE EXCESS 7.8 mmol/L; ARTERIAL BLOOD H2CO3 2.02 mmol/L (1.05-1.35); ARTERIAL BLOOD HCO3 35.3 mmol/L (20-24); ARTERIAL BLOOD O2 SATURATION 93.1 % (94-98); ARTERIAL BLOOD PH 7.34 (7.35-7.45); ARTERIAL BLOOD PO2 72.4 mmHg (80-100); ARTERIAL BLOOD TOTAL CO2 37.4 mmol/L (23-27)
[2020-01-06 03:53] LABS: ARTERIAL BLOOD FIO2 100%
[2020-01-06 04:43] LABS: BLOOD UREA NITROGEN 39 mg/dL (7-20); CALCIUM 7.8 mg/dL (8.4-10.2); GLUCOSE 86 mg/dL (75-110); PHOSPHORUS 4.5 mg/dL (2.5-4.5); POTASSIUM 4.8 mmol/L (3.6-5.0)
[2020-01-06 04:48] LABS: CARBON DIOXIDE 37 mmol/L (22-30); CHLORIDE 114 mmol/L (98-107)
[2020-01-06 04:54] LABS: ANION GAP 4 (5-19)
[2020-01-06] MEDS: DEXAMETHASONE SOD PHOS INJ 10 MG/1 ML VIAL IV SCH ×3 (06:06→22:20)
--- NOTE | 2020-01-06 08:35 | Progress Note ---
Provider Note Provider Note: Patient remains in the intensive care unit with bilateral pneumonia has remained stable for the last 48 hours with the endotracheal tube in place for the cricothyrotomy. Case was discussed with Dr. Tom the polygraph examiner who now recommends a conversion from the cricothyrotomy to a formal tracheostomy. This will be accomplished tomorrow in the intensive care unit.
[2020-01-06] MEDS: BUDESONIDE NEB 0.25 MG/2 ML AMPUL NEB SCH ×2 (08:40→20:56)
--- NOTE | 2020-01-06 08:43 | RADIOLOGY REPORT (SQ) ---
EXAM DESCRIPTION: CHEST SINGLE VIEW IMAGES COMPLETED DATE/TIME: 01/06/2020 6:22 am REASON FOR STUDY: ETT tube COMPARISON: AP view of the chest from 01/05/2020. EXAM PARAMETERS: NUMBER OF VIEWS: One view. TECHNIQUE: An AP view of the chest was obtained. RADIATION DOSE: NA LIMITATIONS: None. FINDINGS: LUNGS AND PLEURA: Unchanged appearance of the lungs the pleura. MEDIASTINUM AND HILAR STRUCTURES: Stable mediastinal and hilar contours. HEART AND VASCULAR STRUCTURES: Stable cardiac silhouette. BONES: No acute findings. HARDWARE: The tip of the tracheostomy tube projects 5.3 cm above the arthur. The tip of the enteric tube projects within the gastric lumen. The tip of the right upper extremity PICC projects within th e SVC. The linear hyperdensity that projects over the left hemithorax could represent the reposition ed large-bore chest tube. OTHER: No other finding. IMPRESSION: Tubes and lines as above. Otherwise unchanged radiographic appearance of the chest. TECHNICAL DOCUMENTATION: JOB ID: [id number] 2010 [employer]- All Rights Reserved Reading location - IP/workstation name: [email or web address]
[2020-01-06] MEDS: HEPARIN SODIUM,PORCINE/D5W 25,000 UNIT/250 ML RTUINJ IV PRN (10:47)
[2020-01-06] MEDS: ZINC SULFATE 220 MG CAPSULE NG SCH (11:00)
[2020-01-06] MEDS: CHOLECALCIFEROL (D3) 1,000 UNIT (25 MCG) TABLET NG SCH (11:00)
[2020-01-06] MEDS: ASCORBIC ACID 500 MG TABLET NG SCH ×2 (11:00→18:50)
[2020-01-06] MEDS: FAMOTIDINE INJ/PF 20 MG/2 ML SDV IV SCH ×2 (11:00→22:20)
[2020-01-06] MEDS: INSULIN GLARGINE,HUM.REC.ANLOG 1,000 UNIT/10 ML VIAL SUBCUT SCH ×2 (11:00→22:18)
[2020-01-06] MEDS: SENNOSIDES/DOCUSATE 8.6-50 MG 1 EACH TABLET NG SCH ×2 (14:27→18:50)
[2020-01-06] MEDS ORDERED: FUROSEMIDE INJ/PF 40 MG/4 ML SDV ONE (15:40)
[2020-01-06] MEDS ORDERED: FUROSEMIDE INJ/PF 40 MG/4 ML SDV IV ONE (16:00)
[2020-01-06] MEDS: MORPHINE SULFATE 10 MG/ML INJ IV PRN (18:49)
--- NOTE | 2020-01-06 19:11 | RADIOLOGY REPORT (SQ) ---
EXAM DESCRIPTION: CHEST SINGLE VIEW IMAGES COMPLETED DATE/TIME: 01/06/2020 7:03 pm REASON FOR STUDY: SOB COMPARISON: 01/06/2020 EXAM PARAMETERS: NUMBER OF VIEWS: One view. TECHNIQUE: Single frontal radiographic view of the chest acquired. RADIATION DOSE: NA LIMITATIONS: None. FINDINGS: LUNGS AND PLEURA: Bilateral airspace disease shows no significant change. MEDIASTINUM AND HILAR STRUCTURES: No masses. Contour normal. HEART AND VASCULAR STRUCTURES: Heart normal in size. Normal vasculature. BONES: No acute findings. HARDWARE: Tracheostomy tube remains in place. NG tube extends to the stomach. OTHER: No other significant finding. IMPRESSION: No significant interval change. TECHNICAL DOCUMENTATION: JOB ID: [id number] 2010 [employer]- All Rights Reserved Reading location - IP/workstation name: [email or web address]
[2020-01-06 19:59] LABS: ARTERIAL BLOOD BASE EXCESS 8.4 mmol/L; ARTERIAL BLOOD H2CO3 2.48 mmol/L (1.05-1.35); ARTERIAL BLOOD HCO3 37.9 mmol/L (20-24); ARTERIAL BLOOD O2 SATURATION 79.8 % (94-98); ARTERIAL BLOOD PH 7.28 (7.35-7.45); ARTERIAL BLOOD PO2 51.3 mmHg (80-100); ARTERIAL BLOOD TOTAL CO2 40.4 mmol/L (23-27)
[2020-01-06 20:00] LABS: ARTERIAL BLOOD FIO2 100%
[2020-01-06 20:01] LABS: ARTERIAL BLOOD PCO2 82.3 mmHg (35-45)
--- NOTE | 2020-01-06 20:01 | Operative Report ---
Nonrecallable Operative Report DATE OF SURGERY: 01/06/20 PREOPERATIVE DIAGNOSIS: Tension pneumothorax on the right POSTOPERATIVE DIAGNOSIS: Same as above OPERATION: Right-sided tube thoracostomy, 32 Israeli chest tube SURGEON: ARELIS NUNEZ ANESTHESIA: GA TISSUE REMOVED OR ALTERED: None COMPLICATIONS: None apparent ESTIMATED BLOOD LOSS: Minimal PROCEDURE: Drains/implants: 32 Israeli chest tube directed posteriorly and superiorly. Procedure in detail: After emergency consent was verified with the nurse, the right chest was prepped and draped in a normal sterile fashion. An incision was created at approximately the level of the fourth interspace, somewhat anteriorly. Dissection was carried to the chest wall using blunt dissection. The chest was entered over top of the rib, using a blunt Yanelis clamp. The Yanelis clamp was spread, and a large mcdonald of air was identified. The 32 Israeli chest tube was then inserted into the chest cavity. It was directed posteriorly and superiorly. It was sutured to the skin using 0 Vicryl suture as well as 0 Prolene suture. A dressing was placed, and the tube was placed to Pleur-evac suction. The procedure at this time was concluded. All sponge, instrument, and needle counts were correct. Condition: Critical in ICU.
--- NOTE | 2020-01-06 20:35 | PDOC CRITICAL CARE PROG REPORT ---
General Date:: 01/06/20 ICU Day:: 6 Ventilator Day:: 6 Hospital Day:: 13 Resuscitation Status: Full Code Events in the past 12 to 24 Hours:: This 54-year-old -Japanese male was hospitalized on 12/25/2027 with COVID- 19 pneumonia. He was admitted to the hospitalist service but deteriorated to the point of being BiPAP dependent. Despite BiPAP support, the patient became progressively more hypoxemic, more dyspneic and was transferred to the ICU for endotracheal intubation and mechanical ventilatory support. At the time of attempted endotracheal intubation, the patient's oropharynx was found to be obstructed and was not amenable to safe endotracheal intubation. An emergency cricothyrotomy was performed by Dr. Taylor, allowing passage of an endotracheal tube, which was sutured in place. 01/03: Remains intubated severe via endotracheal tube through cricothyrotomy. Paralyzed, sedated. Case discussed with Dr. Taylor. Currently, on tube feeds (Glucerna). 01/04: Remains intubated. Endotracheal tube via cricothyrotomy. Paralyzed, sedated. Left chest tube in situ. No airleak. Has been placed under stress throughout the morning. Chest x-ray suggest that the chest tube is no longer intrathoracic in placement. Sodium still elevated, 155. He remains on high- dose Lantus along with continuous insulin infusion. Sugars have been stable, albeit with high insulin requirements. 01/05: Remains intubated. Endotracheal tube via cricothyrotomy. Paralyzed, sedated. Left chest tube was removed in the interim. No pneumothorax on chest x-ray. Plans for formalization of tracheostomy or discussed with Dr. Taylor. In short, we will prepare this patient for anticipated surgery tomorrow. Sodium 155-->147. Remains on high-dose Lantus along with continuous insulin infusion. Fingerstick glucose 352122 today. For nursing, no BM x5 days. Review of systems relevant to events:: Pulmonary, neurological Reason for ICU Addmission:: Intubation for Covid PNA. Now has trach, chest tube. - Medications: Medications reviewed and adjusted accordingly: Yes Sedation:: Versed/morphine Physical Exam Vital Signs: Temp Pulse Resp BP Pulse Ox 98.2 F 96 35 H 95/56 L 87 L 01/06/20 14:38 01/06/20 16:00 01/06/20 16:00 01/06/20 16:00 01/06/20 16:00 Intake & Output 01/05/20 01/06/20 01/07/20 06:59 06:59 06:59 Intake Total 3023 1193 1814 Output Total 1450 1999 1755 Balance 1573 -807 59 Weight 146.5 kg 148.4 kg Weight/Height Weight 148.4 kg Height 1.83 m General appearance: PRESENT: no acute distress, well-developed, well-nourished Head exam: PRESENT: atraumatic, normocephalic Eye exam: PRESENT: conjunctiva pink, PERRLA. ABSENT: scleral icterus Mouth exam: PRESENT: moist, tongue midline Neck exam: PRESENT: other - Endotracheal tube in situ via cricothyrotomy. ABSENT: carotid bruit, JVD, lymphadenopathy, thyromegaly Respiratory exam: PRESENT: decreased breath sounds. ABSENT: rales, rhonchi, wheezes Cardiovascular exam: PRESENT: RRR. ABSENT: diastolic murmur, rubs, systolic murmur Pulses: PRESENT: normal dorsalis pedis pul GI/Abdominal exam: PRESENT: normal bowel sounds, soft. ABSENT: distended, guarding, mass, organolmegaly, rebound, tenderness Gentrourinary exam: PRESENT: indwelling catheter Extremities exam: PRESENT: full ROM. ABSENT: calf tenderness, clubbing, pedal edema Musculoskeletal exam: PRESENT: normal inspection. ABSENT: deformity Neurological exam: PRESENT: other - Paralyzed, sedated Skin exam: PRESENT: skin tears - Gluteal fold Tubes/Lines: PRESENT: Endotracheal Tube, Central Line - PICC line Laboratory/Radiographs Laboratory Results: 01/06/20 03:20 01/06/20 14:35 01/05/20 01/06/20 01/06/20 23:10 03:20 03:20 WBC RBC Hgb Hct MCV MCH MCHC RDW Plt Count Carbonic Acid 2.02 H HCO3/H2CO3 Ratio 17:1 ABG pH 7.34 L ABG pCO2 67.0 H ABG pO2 72.4 L ABG HCO3 35.3 H ABG O2 Saturation 93.1 L ABG Base Excess 7.8 FiO2 100% Sodium 152.9 H 154.7 H Potassium 4.9 4.8 Chloride 115 H 114 H Carbon Dioxide 36 H 37 H Anion Gap 2 L 4 L BUN 39 H 39 H Creatinine 0.96 0.97 Est GFR ( Amer) > 60 > 60 Glucose 120 H 86 Calcium 8.0 L 7.8 L Phosphorus 4.5 Magnesium 3.5 H Urine Color Urine Appearance Urine pH Ur Specific [place] Urine Protein Urine Glucose (UA) Urine Ketones Urine Blood Urine Nitrite Ur Leukocyte Esterase Urine WBC (Auto) Urine RBC (Auto) 01/06/20 01/06/20 01/06/20 03:20 03:20 11:15 WBC 13.4 H RBC 3.96 L Hgb 9.9 L Hct 32.0 L MCV 81 MCH 25.1 L MCHC 31.0 L RDW 14.8 H Plt Count 178 Carbonic Acid HCO3/H2CO3 Ratio ABG pH ABG pCO2 ABG pO2 ABG HCO3 ABG O2 Saturation ABG Base Excess FiO2 Sodium 147.9 H Potassium Chloride Carbon Dioxide Anion Gap BUN Creatinine Est GFR ( Amer) Glucose Calcium Phosphorus Magnesium Urine Color YELLOW Urine Appearance SLIGHTLY-CLOUDY Urine pH 5.0 Ur Specific [place] 1.023 Urine Protein 30 H Urine Glucose (UA) NEGATIVE Urine Ketones NEGATIVE Urine Blood NEGATIVE Urine Nitrite NEGATIVE Ur Leukocyte Esterase NEGATIVE Urine WBC (Auto) 2 Urine RBC (Auto) 1 01/06/20 14:35 WBC RBC Hgb Hct MCV MCH MCHC RDW Plt Count Carbonic Acid HCO3/H2CO3 Ratio ABG pH ABG pCO2 ABG pO2 ABG HCO3 ABG O2 Saturation ABG Base Excess FiO2 Sodium 147.2 H Potassium Chloride Carbon Dioxide Anion Gap BUN Creatinine Est GFR ( Amer) Glucose Calcium Phosphorus Magnesium Urine Color Urine Appearance Urine pH Ur Specific [place] Urine Protein Urine Glucose (UA) Urine Ketones Urine Blood Urine Nitrite Ur Leukocyte Esterase Urine WBC (Auto) Urine RBC (Auto) 01/04/20 11:10 Tracheal Aspirate Gram Stain - Final 01/04/20 11:10 Tracheal Aspirate Sputum Culture - Final C.albicans/C.dubliniensis Normal Mendy 12/25/19 15:34 Troponin I < 0.012 Impressions: PICC Line Insertion 12/31/19 00:00 IMPRESSION: SUCCESSFUL PLACEMENT OF A 5 FR DUAL LUMEN 43 CM PICC IN THE RIGHT BRACHIOCEPHALIC VEIN. Chest X-Ray 01/06/20 05:00 IMPRESSION: Tubes and lines as above. Otherwise unchanged radiographic appearance of the chest. All labs, radiographs, diagnostic studies and EKGs were personally reviewed: Yes In addition, reports of radiographic and diagnostic studies were read: Yes Assessment and Plan - Diagnosis (1) Acute respiratory failure with hypoxemia Is this a current diagnosis for this admission?: Yes Plan: * Maintain FiO2 100%. Wean PEEP as tolerated. * Titrate ventilator settings based on ABG results. * Patient does require PEEP 10 at this time. However, as he has not had steadily increasing PEEP requirements, I have discussed with Dr. Taylor and agreed that we should proceed with formalizing tracheostomy. * We will stop feeding and anticoagulation in anticipation of surgery tomorrow. * Chest tube removed 01/05/2020. * Furosemide 40 mg IV single dose today. (2) Hyperglycemia due to type 2 diabetes mellitus Qualifiers: Diabetes mellitus retirement insulin use: with retirement use Qualified Code(s): E11.65 - Type 2 diabetes mellitus with hyperglycemia; Z79.4 - parts counterman (current) use of insulin Is this a current diagnosis for this admission?: Yes Plan: As the patient has required continuous insulin infusion in addition to his Lantus dosing, we may be able to take advantage of the reduced insulin requirement during fasting (in preparation for surgery). (3) Malnutrition Qualifiers: Malnutrition type: unspecified type Qualified Code(s): E46 - Unspecified protein-calorie malnutrition Is this a current diagnosis for this admission?: Yes (4) Morbid obesity Is this a current diagnosis for this admission?: Yes (5) Pneumonia due to COVID-19 virus Is this a current diagnosis for this admission?: Yes Critical Time Critical Time (minutes): 60 Level of Care: ICU -: 1. The care of a critical patient is a dynamic process. This note is a office machines sales representative synopsis but static in nature. The timeframe for treatments given in order is not necessarily the actual time these treatments may have been done. 2. This patient requires critical care secondary to ongoing requirements for therapy not offered or safe outside the critical care environment. Transfer to a lower level of care will result in altered life or limb morbidity and mortality. 3. Multidisciplinary rounds completed. 4. ABCDE bundle addressed.
--- NOTE | 2020-01-06 20:53 | RADIOLOGY REPORT (SQ) ---
EXAM DESCRIPTION: [facility]: XR CHEST 1 VIEW CLINICAL HISTORY: 54 years Male; chest tube; FINDINGS: AP chest at 2012. Since 1852, right chest tube is in place, tip at the right apex. No significant residual right pneumothorax. Endotracheal tube 5.5 cm above arthur. Right PICC line tip in the SVC. Mild scattered bilateral infiltrates are similar. IMPRESSION: No significant right pneumothorax status post chest tube placement
[2020-01-06] MEDS: ASPIRIN 81 MG TABLET, CHEWABLE NG SCH (22:20)
[2020-01-07] MEDS: ALBUTEROL SULFATE 0.083% NEB 2.5 MG/3 ML AMPUL NEB SCH ×4 (01:55→20:03)
[2020-01-07 04:20] LABS: ARTERIAL BLOOD BASE EXCESS 9.2 mmol/L; ARTERIAL BLOOD H2CO3 2.39 mmol/L (1.05-1.35); ARTERIAL BLOOD HCO3 38.1 mmol/L (20-24); ARTERIAL BLOOD O2 SATURATION 93.6 % (94-98); ARTERIAL BLOOD PO2 78.3 mmHg (80-100); ARTERIAL BLOOD TOTAL CO2 40.5 mmol/L (23-27)
[2020-01-07 04:25] LABS: ARTERIAL BLOOD FIO2 100%; ARTERIAL BLOOD PCO2 79.3 mmHg (35-45); HEMATOCRIT 32.4 % (37.9-51.0); MEAN CORPUSCULAR HEMOGLOBIN 24.9 pg (27.0-33.4); MEAN CORPUSCULAR VOLUME 80 fl (80-97); PLATELET COUNT 165 10^3/uL (150-450); RED BLOOD COUNT 4.04 10^6/uL (4.35-5.55); RED CELL DISTRIBUTION WIDTH 14.8 % (11.5-14.0); WHITE BLOOD COUNT 16.8 10^3/uL (4.0-10.5)
[2020-01-07 04:56] LABS: BLOOD UREA NITROGEN 38 mg/dL (7-20); CHLORIDE 106 mmol/L (98-107); GLUCOSE 169 mg/dL (75-110); POTASSIUM 5.8 mmol/L (3.6-5.0)
[2020-01-07 05:01] LABS: CARBON DIOXIDE 38 mmol/L (22-30)
[2020-01-07 05:02] LABS: ANION GAP 4 (5-19)
[2020-01-07 05:03] LABS: ABSOLUTE LYMPHOCYTES# (MANUAL) 0.8 10^3/uL (0.5-4.7); BAND NEUTROPHILS % (MANUAL) 2 % (3-5); BASOPHILS % (MANUAL) 0 % (0-2); EOSINOPHILS % (MANUAL) 0 % (0-6); HYPOCHROMASIA SLIGHT; LYMPHOCYTES % (MANUAL) 5 % (13-45); METAMYELOCYTES % (MANUAL) 1 % (0-1); MONOCYTES % (MANUAL) 6 % (3-13); POLYCHROMASIA SLIGHT; SEGMENTED NEUTROPHILS % (MAN) 86 % (42-78); TOTAL CELLS COUNTED 100; TOXIC GRANULATION 1+; TOXIC VACUOLATION PRESENT
[2020-01-07 05:04] LABS: ANISOCYTOSIS SLIGHT; OVALOCYTES SLIGHT; PLATELET COMMENT ADEQUATE; POIKILOCYTOSIS SLIGHT
[2020-01-07] MEDS: DEXAMETHASONE SOD PHOS INJ 10 MG/1 ML VIAL IV SCH ×3 (05:05→22:11)
[2020-01-07] MEDS: BUDESONIDE NEB 0.25 MG/2 ML AMPUL NEB SCH ×2 (08:01→20:03)
[2020-01-07] MEDS: INSULIN GLARGINE,HUM.REC.ANLOG 1,000 UNIT/10 ML VIAL SUBCUT SCH ×3 (09:42→22:10)
[2020-01-07] MEDS: ASCORBIC ACID 500 MG TABLET NG SCH ×2 (09:42→17:46)
[2020-01-07] MEDS: CHOLECALCIFEROL (D3) 1,000 UNIT (25 MCG) TABLET NG SCH (09:42)
[2020-01-07] MEDS: SENNOSIDES/DOCUSATE 8.6-50 MG 1 EACH TABLET NG SCH ×3 (09:42→17:46)
[2020-01-07] MEDS: FAMOTIDINE INJ/PF 20 MG/2 ML SDV IV SCH (09:42)
[2020-01-07] MEDS: ZINC SULFATE 220 MG CAPSULE NG SCH (09:43)
[2020-01-07] MEDS ORDERED: FUROSEMIDE INJ/PF 40 MG/4 ML SDV ONE (10:30)
[2020-01-07] MEDS ORDERED: FUROSEMIDE INJ/PF 40 MG/4 ML SDV IV ONE (11:00)
[2020-01-07] MEDS ORDERED: CALCIUM GLUC IN NACL, ISO-OSM 1 GM/50 ML RTUPB IV ONE (12:45)
[2020-01-07 12:49] LABS: POTASSIUM 5.6 mmol/L (3.6-5.0)
[2020-01-07] MEDS: PANTOPRAZOLE SODIUM 40 MG VIAL IV SCH (13:11)
[2020-01-07] MEDS ORDERED: PROPOFOL INJ 200 MG/20 ML VIAL IV ONE (14:53)
--- NOTE | 2020-01-07 15:32 | Operative Report ---
Nonrecallable Operative Report DATE OF SURGERY: 01/07/20 PREOPERATIVE DIAGNOSIS: covid pneumonia, respiratory failure POSTOPERATIVE DIAGNOSIS: same OPERATION: tracheostomy SURGEON: KAVON SALAMANCA 1ST GOLF STARTER AND RANGER: ARELIS NUNEZ ANESTHESIA: GA TISSUE REMOVED OR ALTERED: none COMPLICATIONS: none INTRAOPERATIVE FINDINGS: see note PROCEDURE: This procedure was done with the patient in intensive care unit in the negative pressure room on his own bed. Patient was anesthetized with paralytic and Versed. He had a indwelling cricothyrotomy and endotracheal tube going through that stoma. After appropriate timeout and site verification the procedure commenced. The neck was prepped and draped a longitudinal incision was made from the cricothyrotomy to the sternal notch. Dissection was carried down through the fatty tissue and subcutaneous tissue and deep cervical fascia with Bovie cautery. We only could use a Bovie cautery to a limited extent secondary to the high oxygen requirements of the patient. Once we identified the trachea would place a tracheal hook on the second or thyroid membrane and the first tracheal ring for therefore we elected to use tracheal ring and lifted up into the wound. We [place] retractor was utilized also. We then identified the cricothyrotomy incision and was somewhat large and going through the cricothyroid membrane the first tracheal ring. We elected to use the same hole since it was quite large. We removed the endotracheal tube and placed a 7 [place] Sh[place] tracheostomy tube in through the defect and blow up the balloon and got good seal. We connected that to the ventilator. We then closed the subcutaneous tissue with interrupted 2-0 Vicryl sutures and the skin was closed with 2-0 Prolene suture. The tracheostomy was fixed to the cervical skin with 2-0 Prolene suture in a tracheostomy collar. The patient tolerated the procedure well.
--- NOTE | 2020-01-07 16:54 | PDOC CRITICAL CARE PROG REPORT ---
General Date:: 01/07/20 ICU Day:: 7 Ventilator Day:: 7 Hospital Day:: 14 Resuscitation Status: Full Code Events in the past 12 to 24 Hours:: This 54-year-old -[place] male was hospitalized on 12/25/2027 with COVID- 19 pneumonia. He was admitted to the hospitalist service but deteriorated to the point of being BiPAP dependent. Despite BiPAP support, the patient became progressively more hypoxemic, more dyspneic and was transferred to the ICU for endotracheal intubation and mechanical ventilatory support. At the time of attempted endotracheal intubation, the patient's oropharynx was found to be obstructed and was not amenable to safe endotracheal intubation. An emergency cricothyrotomy was performed by Dr. Taylor, allowing passage of an endotracheal tube, which was sutured in place. 01/03: Remains intubated severe via endotracheal tube through cricothyrotomy. Paralyzed, sedated. Case discussed with Dr. Taylor. Currently, on tube feeds (Glucerna). 01/04: Remains intubated. Endotracheal tube via cricothyrotomy. Paralyzed, sedated. Left chest tube in situ. No airleak. Has been placed under stress throughout the morning. Chest x-ray suggest that the chest tube is no longer intrathoracic in placement. Sodium still elevated, 155. He remains on high- dose Lantus along with continuous insulin infusion. Sugars have been stable, albeit with high insulin requirements. 01/05: Remains intubated. Endotracheal tube via cricothyrotomy. Paralyzed, sedated. Left chest tube was removed in the interim. No pneumothorax on chest x-ray. Plans for formalization of tracheostomy or discussed with Dr. Taylor. In short, we will prepare this patient for anticipated surgery tomorrow. Sodium 155-->147. Remains on high-dose Lantus along with continuous insulin infusion. Fingerstick glucose [id number] today. For nursing, no BM x5 days. 01/06: Patient had a sudden episode of oxygen desaturation yesterday while on mechanical ventilatory support. He remained hemodynamically stable. Chest x- ray revealed development of a right-sided pneumothorax. Chest tube was placed by Dr. Ramos in the interim with subsequent improvement in oxygenation. PO2 on ABG this a.m. was 78. He remains on PRVC 35/480/100/16. Anticipating formalization of tracheostomy later today. Of note, the patient has been on high-dose Lantus (45 units subcutaneously every 12 hours) in addition to continuous insulin infusion. His tube feeds were discontinued in preparation for surgery, and the patient did have a brief hypoglycemic episode, which was easily corrected. Of note, K 5.8, Mg 3.5, creatinine 0.8 this AM. nurse this morning reports that despite rocuronium infusion, the patient is demonstrating 4 out of 4 on [id number]'s. It was noted that the rocuronium infusion is being administered through peripheral IV. Of note, locally, at the site of infusion, he is 0 for monitoring of floors. Review of systems relevant to events:: Pulmonary, neurological Reason for ICU Addmission:: Intubation for Covid PNA. Now has trach, chest tube. - Medications: Medications reviewed and adjusted accordingly: Yes Sedation:: Versed/morphine/rocuronium Physical Exam Vital Signs: Temp Pulse Resp BP Pulse Ox 97.9 F 83 31 H 110/70 93 01/07/20 10:00 01/07/20 10:00 01/07/20 10:37 01/07/20 10:37 01/07/20 10:37 Intake & Output 01/06/20 01/07/20 01/08/20 06:59 06:59 06:59 Intake Total 1193 2798 315 Output Total 1999 3607 220 Balance -807 -809 95 Weight 148.4 kg 148.2 kg Weight/Height Weight 148.2 kg Height 1.83 m General appearance: PRESENT: no acute distress, obese, well-developed, well- nourished Head exam: PRESENT: atraumatic, normocephalic Eye exam: PRESENT: conjunctiva pink, EOMI, PERRLA. ABSENT: scleral icterus Ear exam: PRESENT: normal external ear exam Neck exam: ABSENT: carotid bruit, JVD, lymphadenopathy, thyromegaly Respiratory exam: PRESENT: decreased breath sounds, tachypnea. ABSENT: rales, rhonchi, wheezes Cardiovascular exam: PRESENT: RRR, tachycardia. ABSENT: diastolic murmur, rubs, systolic murmur Pulses: PRESENT: normal dorsalis pedis pul GI/Abdominal exam: PRESENT: normal bowel sounds, soft. ABSENT: distended, guarding, mass, organolmegaly, rebound, tenderness Extremities exam: PRESENT: full ROM. ABSENT: calf tenderness, clubbing, pedal edema Musculoskeletal exam: PRESENT: normal inspection. ABSENT: deformity Neurological exam: PRESENT: altered, other - Sedated and paralyzed Skin exam: PRESENT: dry, warm, other - Skin tear at gluteal fold. ABSENT: cyanosis, rash Tubes/Lines: PRESENT: Endotracheal Tube, Chest Tube - Right, Central Line - Right PICC, Nasogastic Tube Laboratory/Radiographs Laboratory Results: 01/07/20 04:00 01/07/20 04:00 01/06/20 01/06/20 01/06/20 14:35 19:20 20:45 WBC RBC Hgb Hct MCV MCH MCHC RDW Plt Count Seg Neutrophils % Carbonic Acid 2.48 H HCO3/H2CO3 Ratio 15:1 ABG pH 7.28 L ABG pCO2 82.3 H* ABG pO2 51.3 L ABG HCO3 37.9 H ABG O2 Saturation 79.8 L ABG Base Excess 8.4 FiO2 100% Sodium 147.2 H 147.2 H Potassium Chloride Carbon Dioxide Anion Gap BUN Creatinine Est GFR ( Amer) Glucose Calcium 01/07/20 01/07/20 01/07/20 04:00 04:00 04:00 WBC 16.8 H RBC 4.04 L Hgb 10.0 L Hct 32.4 L MCV 80 MCH 24.9 L MCHC 31.0 L RDW 14.8 H Plt Count 165 Seg Neutrophils % Not Reportable Carbonic Acid 2.39 H HCO3/H2CO3 Ratio 15:1 ABG pH 7.30 L ABG pCO2 79.3 H* ABG pO2 78.3 L ABG HCO3 38.1 H ABG O2 Saturation 93.6 L ABG Base Excess 9.2 FiO2 100% Sodium 148.0 H Potassium 5.8 H Chloride 106 Carbon Dioxide 38 H Anion Gap 4 L BUN 38 H Creatinine 0.75 Est GFR ( Amer) > 60 Glucose 169 H Calcium 8.0 L 01/07/20 04:00 WBC RBC Hgb Hct MCV MCH MCHC RDW Plt Count Seg Neutrophils % Carbonic Acid HCO3/H2CO3 Ratio ABG pH ABG pCO2 ABG pO2 ABG HCO3 ABG O2 Saturation ABG Base Excess FiO2 Sodium Cancelled Potassium Chloride Carbon Dioxide Anion Gap BUN Creatinine Est GFR ( Amer) Glucose Calcium 01/04/20 11:10 Tracheal Aspirate Gram Stain - Final 01/04/20 11:10 Tracheal Aspirate Sputum Culture - Final C.albicans/C.dubliniensis Normal Mendy 12/25/19 15:34 Troponin I < 0.012 Impressions: PICC Line Insertion 12/31/19 00:00 IMPRESSION: SUCCESSFUL PLACEMENT OF A 5 FR DUAL LUMEN 43 CM PICC IN THE RIGHT BRACHIOCEPHALIC VEIN. Chest X-Ray 01/06/20 05:00 IMPRESSION: Tubes and lines as above. Otherwise unchanged radiographic appearance of the chest. All labs, radiographs, diagnostic studies and EKGs were personally reviewed: Yes In addition, reports of radiographic and diagnostic studies were read: Yes Assessment and Plan - Diagnosis (1) Acute respiratory failure with hypoxemia Is this a current diagnosis for this admission?: Yes Plan: * Maintain FiO2 100%. Wean PEEP as tolerated. * Titrate ventilator settings based on ABG results. * Although the patient was found to be on a PEEP of 16 this morning, PEEP has been successfully weaned to 12 at the bedside (with modest improvement in SPO2). * Anticipating tracheostomy today. * Off insulin infusion. Subsequent to tracheostomy, we will adjust Lantus dosing in hopes of avoiding restarting continuous insulin infusion. Add sliding scale insulin. * Left chest tube removed 01/05/2020. Right chest tube placed 01/06/2020. * Furosemide 40 mg IV single dose today for hyperkalemia. 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 (3) Hyperkalemia Is this a current diagnosis for this admission?: Yes Plan: * Recheck K, Mg. This may be experienced result. * As we will be discontinuing his continuous insulin infusion, I will give the patient a single dose of furosemide 40 mg IV for potassium 5.8. * Calcium gluconate 1 g. * After completion of the tracheostomy, Kayexalate may be administered. (4) Malnutrition Qualifiers: Malnutrition type: unspecified type Qualified Code(s): E46 - Unspecified protein-calorie malnutrition Is this a current diagnosis for this admission?: Yes (5) Morbid obesity Is this a current diagnosis for this admission?: Yes (6) Pneumonia due to COVID-19 virus Is this a current diagnosis for this admission?: Yes Plan: * Received 1 unit of convalescent plasma. * Change famotidine to Protonix. Stop Pepcid. * (7) Pneumothorax Qualifiers: Pneumothorax type: spontaneous, primary Qualified Code(s): J93.11 - Primary spontaneous pneumothorax Is this a current diagnosis for this admission?: Yes Plan: Right chest tube placed 01/06/[address] Ramos. Help appreciated. Critical Time Critical Time (minutes): 60 Level of Care: ICU -: 1. The care of a critical patient is a dynamic process. This note is a small business sales representative synopsis but static in nature. The timeframe for treatments given in order is not necessarily the actual time these treatments may have been done. 2. This patient requires critical care secondary to ongoing requirements for therapy not offered or safe outside the critical care environment. Transfer to a lower level of care will result in altered life or limb morbidity and mortality. 3. Multidisciplinary rounds completed. 4. ABCDE bundle addressed.
[2020-01-07] MEDS: SILDENAFIL CITRATE 20 MG TABLET NG SCH (17:46)
[2020-01-07] MEDS: NORMAL SALINE 500 ML with ROCURONIUM BROMIDE 500 MG IV PRN ×2 (17:47)
[2020-01-07] MEDS: MIDAZOLAM HCL 50 MG/100 ML RTUINJ IV PRN (17:47)
[2020-01-07 18:25] LABS: ARTERIAL BLOOD BASE EXCESS 14.1 mmol/L; ARTERIAL BLOOD FIO2 100%; ARTERIAL BLOOD H2CO3 2.39 mmol/L (1.05-1.35); ARTERIAL BLOOD HCO3 42.7 mmol/L (20-24); ARTERIAL BLOOD O2 SATURATION 93.7 % (94-98); ARTERIAL BLOOD PH 7.35 (7.35-7.45); ARTERIAL BLOOD PO2 75.4 mmHg (80-100); ARTERIAL BLOOD TOTAL CO2 45.1 mmol/L (23-27)
[2020-01-07 18:27] LABS: ARTERIAL BLOOD PCO2 79.4 mmHg (35-45)
[2020-01-07] MEDS ORDERED: SUCCINYLCHOLINE CHLORIDE INJ 200 MG/10 ML VIAL ONE (18:35)
[2020-01-07 18:45] LABS: POTASSIUM 5.4 mmol/L (3.6-5.0)
[2020-01-07] MEDS: ASPIRIN 81 MG TABLET, CHEWABLE NG SCH (22:11)
[2020-01-08] MEDS: ALBUTEROL SULFATE 0.083% NEB 2.5 MG/3 ML AMPUL NEB SCH ×4 (01:47→19:55)
[2020-01-08] MEDS: MIDAZOLAM HCL 50 MG/100 ML RTUINJ IV PRN ×3 (02:10→14:41)
[2020-01-08] MEDS: DEXAMETHASONE SOD PHOS INJ 10 MG/1 ML VIAL IV SCH ×2 (05:24→14:41)
[2020-01-08 05:33] LABS: ARTERIAL BLOOD BASE EXCESS 11.8 mmol/L; ARTERIAL BLOOD H2CO3 2.22 mmol/L (1.05-1.35); ARTERIAL BLOOD HCO3 40.1 mmol/L (20-24); ARTERIAL BLOOD O2 SATURATION 93.1 % (94-98); ARTERIAL BLOOD PH 7.35 (7.35-7.45); ARTERIAL BLOOD PO2 72.2 mmHg (80-100); ARTERIAL BLOOD TOTAL CO2 42.3 mmol/L (23-27); HEMATOCRIT 31.1 % (37.9-51.0); HEMOGLOBIN 9.8 g/dL (13.5-17.0); MEAN CORPUSCULAR HEMOGLOBIN 25.1 pg (27.0-33.4); MEAN CORPUSCULAR HGB CONC 31.4 g/dL (32.0-36.0); MEAN CORPUSCULAR VOLUME 80 fl (80-97); PLATELET COUNT 165 10^3/uL (150-450); RED CELL DISTRIBUTION WIDTH 14.5 % (11.5-14.0); WHITE BLOOD COUNT 15.8 10^3/uL (4.0-10.5)
[2020-01-08 05:36] LABS: APPEARANCE,URINE CLEAR; BILIRUBIN,URINE NEGATIVE (NEGATIVE); COLOR,URINE YELLOW; GLUCOSE, URINE NEGATIVE (NEGATIVE); KETONES,URINE NEGATIVE (NEGATIVE); LEUKOCYTE ESTERASE,URINE NEGATIVE (NEGATIVE); NITRITE,URINE NEGATIVE (NEGATIVE); PROTEIN,URINE NEGATIVE (NEGATIVE); URINE SPECIFIC GRAVITY 1.025
[2020-01-08 05:41] LABS: ARTERIAL BLOOD FIO2 100
[2020-01-08 05:43] LABS: ARTERIAL BLOOD PCO2 73.7 mmHg (35-45); BLOOD UREA NITROGEN 31 mg/dL (7-20); GLUCOSE 154 mg/dL (75-110); POTASSIUM 4.6 mmol/L (3.6-5.0)
[2020-01-08 05:48] LABS: CARBON DIOXIDE 34 mmol/L (22-30); CHLORIDE 109 mmol/L (98-107)
[2020-01-08 05:50] LABS: ABSOLUTE LYMPHOCYTES# (MANUAL) 1.1 10^3/uL (0.5-4.7); ABSOLUTE MONOCYTES # (MANUAL) 0.6 10^3/uL (0.1-1.4); BAND NEUTROPHILS % (MANUAL) 3 % (3-5); BASOPHILS % (MANUAL) 0 % (0-2); EOSINOPHILS % (MANUAL) 0 % (0-6); LYMPHOCYTES % (MANUAL) 7 % (13-45); METAMYELOCYTES % (MANUAL) 1 % (0-1); MONOCYTES % (MANUAL) 4 % (3-13); PLATELET COMMENT ADEQUATE; RBC MORPHOLOGY COMMENT NORMO-CYTIC/CHROMIC; SEGMENTED NEUTROPHILS % (MAN) 85 % (42-78); TOTAL CELLS COUNTED 100
[2020-01-08 05:56] LABS: ANION GAP 32 (5-19)
[2020-01-08 05:59] LABS: CALCIUM 6.7 mg/dL (8.4-10.2)
[2020-01-08] MEDS: NORMAL SALINE 500 ML with ROCURONIUM BROMIDE 500 MG IV PRN ×2 (07:01)
--- NOTE | 2020-01-08 08:07 | RADIOLOGY REPORT (SQ) ---
EXAM DESCRIPTION: CHEST SINGLE VIEW IMAGES COMPLETED DATE/TIME: 01/08/2020 7:21 am REASON FOR STUDY: hypoxia COMPARISON: Chest films 01/01/2020, 01/04/2020, 01/05/2020, 01/06/2020 EXAM PARAMETERS: NUMBER OF VIEWS: One view. TECHNIQUE: Single frontal radiographic view of the chest acquired. RADIATION DOSE: NA LIMITATIONS: None. FINDINGS: LUNGS AND PLEURA: Improvement in diffuse bilateral airspace disease compared to previous s tudies. No gross pleural effusion. No pneumothorax. MEDIASTINUM AND HILAR STRUCTURES: No masses. Contour normal. HEART AND VASCULAR STRUCTURES: Heart normal in size. Normal vasculature. BONES: No acute findings. HARDWARE: Endotracheal tube tip 5 cm above the arthur. Nasogastric tube tip and side port in the sto mach. Right PICC line tip superior vena cava. Large bore right chest tube in place. OTHER: No other significant finding. IMPRESSION: Tubes and lines in good positioning. No pneumothorax Partial clearing of diffuse bilateral infiltrates compared to 01/01/2020 TECHNICAL DOCUMENTATION: JOB ID: [id number] [employer]- All Rights Reserved Reading location - IP/workstation name: [email or web address]
[2020-01-08] MEDS: BUDESONIDE NEB 0.25 MG/2 ML AMPUL NEB SCH ×2 (08:47→19:56)
[2020-01-08 09:52] LABS: BLOOD UREA NITROGEN 38 mg/dL (7-20); CALCIUM 8.5 mg/dL (8.4-10.2); CHLORIDE 102 mmol/L (98-107); GLUCOSE 199 mg/dL (75-110)
[2020-01-08 10:03] LABS: POTASSIUM 5.8 mmol/L (3.6-5.0)
[2020-01-08 10:04] LABS: ANION GAP 2 (5-19)
[2020-01-08 10:06] LABS: CARBON DIOXIDE 42 mmol/L (22-30)
[2020-01-08] MEDS: PANTOPRAZOLE SODIUM 40 MG VIAL IV SCH (10:38)
[2020-01-08] MEDS: INSULIN GLARGINE,HUM.REC.ANLOG 1,000 UNIT/10 ML VIAL SUBCUT SCH (10:38)
[2020-01-08] MEDS: ASCORBIC ACID 500 MG TABLET NG SCH ×2 (10:41→17:11)
[2020-01-08] MEDS: SENNOSIDES/DOCUSATE 8.6-50 MG 1 EACH TABLET NG SCH ×3 (10:41→17:07)
[2020-01-08] MEDS: CHOLECALCIFEROL (D3) 1,000 UNIT (25 MCG) TABLET NG SCH (10:42)
[2020-01-08] MEDS: SILDENAFIL CITRATE 20 MG TABLET NG SCH ×3 (10:42→17:11)
[2020-01-08] MEDS: ZINC SULFATE 220 MG CAPSULE NG SCH (10:42)
[2020-01-08] MEDS ORDERED: FUROSEMIDE INJ/PF 40 MG/4 ML SDV IV ONE (15:54)
[2020-01-08] MEDS ORDERED: SODIUM POLYSTYRENE SULFONATE 15 GM/60 ML PO ONE (16:30)
[2020-01-08] MEDS ORDERED: PHENYTOIN SODIUM INJ/PF 250 MG/5 ML SDV IV ONE (18:36)
[2020-01-08] MEDS ORDERED: GLUCAGON,HUMAN RECOMB 1 MG INJ IM PRN (18:42)
[2020-01-08] MEDS ORDERED: DEXTROSE 50%-WATER 25 GM/50 ML DISP.SYRIN IV PRN (18:42)
[2020-01-08] MEDS ORDERED: DEXTROSE 40% GEL 15 GM TUBE PO PRN ×2 (18:42)
[2020-01-08] MEDS: INSULIN REG, HUMAN 100 UNIT/ML 3 ML VIAL (PYX) SUBCUT SCH (19:04)
--- NOTE | 2020-01-08 19:26 | PDOC CRITICAL CARE PROG REPORT ---
General Date:: 01/08/20 ICU Day:: 8 Ventilator Day:: 8 Hospital Day:: 15 Resuscitation Status: Full Code Events in the past 12 to 24 Hours:: This 54-year-old -[place]ong[place] male was hospitalized on 12/25/2027 with COVID- 19 pneumonia. He was admitted to the hospitalist service but deteriorated to the point of being BiPAP dependent. Despite BiPAP support, the patient became progressively more hypoxemic, more dyspneic and was transferred to the ICU for endotracheal intubation and mechanical ventilatory support. At the time of attempted endotracheal intubation, the patient's oropharynx was found to be obstructed and was not amenable to safe endotracheal intubation. An emergency cricothyrotomy was performed by Dr. Taylor, allowing passage of an endotracheal tube, which was sutured in place. 01/03: Remains intubated severe via endotracheal tube through cricothyrotomy. Paralyzed, sedated. Case discussed with Dr. Taylor. Currently, on tube feeds (Glucerna). 01/04: Remains intubated. Endotracheal tube via cricothyrotomy. Paralyzed, sedated. Left chest tube in situ. No airleak. Has been placed under stress throughout the morning. Chest x-ray suggest that the chest tube is no longer intrathoracic in placement. Sodium still elevated, 155. He remains on high- dose Lantus along with continuous insulin infusion. Sugars have been stable, albeit with high insulin requirements. 01/05: Remains intubated. Endotracheal tube via cricothyrotomy. Paralyzed, sedated. Left chest tube was removed in the interim. No pneumothorax on chest x-ray. Plans for formalization of tracheostomy or discussed with Dr. Taylor. In short, we will prepare this patient for anticipated surgery tomorrow. Sodium 155-->147. Remains on high-dose Lantus along with continuous insulin infusion. Fingerstick glucose [id number] today. For nursing, no BM x5 days. 01/06: Patient had a sudden episode of oxygen desaturation yesterday while on mechanical ventilatory support. He remained hemodynamically stable. Chest x- ray revealed development of a right-sided pneumothorax. Chest tube was placed by Dr. Ramos in the interim with subsequent improvement in oxygenation. PO2 on ABG this a.m. was 78. He remains on PRVC 35/480/100/16. Anticipating formalization of tracheostomy later today. Of note, the patient has been on high-dose Lantus (45 units subcutaneously every 12 hours) in addition to continuous insulin infusion. His tube feeds were discontinued in preparation for surgery, and the patient did have a brief hypoglycemic episode, which was easily corrected. Of note, K 5.8, Mg 3.5, creatinine 0.8 this AM. nurse this morning reports that despite rocuronium infusion, the patient is demonstrating 4 out of 4 on [id number]'s. It was noted that the rocuronium infusion is being administered through peripheral IV. Of note, locally, at the site of infusion, he is 0 for monitoring of floors. 01/07: Patient underwent formalization of tracheostomy yesterday. No significant complications. Only had oxygen desaturations down to 84% intraoperatively. Tolerating mechanical ventilatory support via tracheostomy. Still on FiO2 100%, PEEP 10. SPO2 100%. Review of systems relevant to events:: Pulmonary, neurological Reason for ICU Addmission:: Intubation for Covid PNA. Now has trach, chest tube. - Medications: Medications reviewed and adjusted accordingly: Yes Sedation:: Versed/morphine/rocuronium Physical Exam Vital Signs: Temp Pulse Resp BP Pulse Ox 98.9 F 95 35 H 115/80 100 01/08/20 12:00 01/08/20 14:16 01/08/20 14:16 01/08/20 14:00 01/08/20 14:16 Intake & Output 01/07/20 01/08/20 01/09/20 06:59 06:59 06:59 Intake Total 2898 908 494 Output Total 1468 9269 1200 Balance -709 -1457 -706 Weight 148.2 kg 142.7 kg 142.7 kg Weight/Height Weight 142.7 kg Height 1.83 m General appearance: PRESENT: no acute distress, morbidly obese, well-developed, well-nourished Head exam: PRESENT: atraumatic, normocephalic Eye exam: PRESENT: conjunctiva pink. ABSENT: conjunctival injection, periorbital swelling, scleral icterus Mouth exam: PRESENT: moist, tongue midline Respiratory exam: PRESENT: clear to auscultation onofre. ABSENT: rales, rhonchi, wheezes Cardiovascular exam: PRESENT: RRR. ABSENT: diastolic murmur, rubs, systolic murmur Pulses: PRESENT: normal dorsalis pedis pul GI/Abdominal exam: PRESENT: normal bowel sounds, soft. ABSENT: distended, guarding, mass, organolmegaly, rebound, tenderness Extremities exam: PRESENT: full ROM, pedal edema, +1 edema. ABSENT: calf tenderness, clubbing Musculoskeletal exam: PRESENT: normal inspection. ABSENT: deformity Neurological exam: PRESENT: altered, motor sensory deficit. ABSENT: reflexes normal Psychiatric exam: ABSENT: agitated, anxious Skin exam: PRESENT: dry, intact, warm. ABSENT: cyanosis, rash Tubes/Lines: PRESENT: Endotracheal Tube, Chest Tube, Nasogastic Tube, Other - Right PICC Laboratory/Radiographs Laboratory Results: 01/08/20 05:05 01/08/20 09:14 01/07/20 01/07/20 01/07/20 17:30 17:30 17:44 WBC RBC Hgb Hct MCV MCH MCHC RDW Plt Count Seg Neutrophils % Carbonic Acid 2.39 H HCO3/H2CO3 Ratio 17:1 ABG pH 7.35 ABG pCO2 79.4 H* ABG pO2 75.4 L ABG HCO3 42.7 H ABG O2 Saturation 93.7 L ABG Base Excess 14.1 FiO2 100% Sodium 144.2 Potassium 5.4 H Chloride Carbon Dioxide Anion Gap BUN Creatinine Est GFR ( Amer) Est GFR (Non-Af Amer) Glucose Calcium Magnesium 3.0 H Urine Color Urine Appearance Urine pH Ur Specific [place] Urine Protein Urine Glucose (UA) Urine Ketones Urine Blood Urine Nitrite Ur Leukocyte Esterase Urine WBC (Auto) Urine RBC (Auto) 01/08/20 01/08/20 01/08/20 05:05 05:05 05:05 WBC 15.8 H RBC 3.90 L Hgb 9.8 L Hct 31.1 L MCV 80 MCH 25.1 L MCHC 31.4 L RDW 14.5 H Plt Count 165 Seg Neutrophils % Not Reportable Carbonic Acid 2.22 H HCO3/H2CO3 Ratio 18:1 ABG pH 7.35 ABG pCO2 73.7 H* ABG pO2 72.2 L ABG HCO3 40.1 H ABG O2 Saturation 93.1 L ABG Base Excess 11.8 FiO2 100 Sodium 174.6 H* D Potassium 4.6 Chloride 109 H Carbon Dioxide 34 H Anion Gap 32 H BUN 31 H Creatinine 0.54 Est GFR ( Amer) > 60 Est GFR (Non-Af Amer) Glucose 154 H Calcium 6.7 L* Magnesium Urine Color Urine Appearance Urine pH Ur Specific [place] Urine Protein Urine Glucose (UA) Urine Ketones Urine Blood Urine Nitrite Ur Leukocyte Esterase Urine WBC (Auto) Urine RBC (Auto) 01/08/20 01/08/20 01/08/20 05:05 07:00 09:14 WBC RBC Hgb Hct MCV MCH MCHC RDW Plt Count Seg Neutrophils % Carbonic Acid HCO3/H2CO3 Ratio ABG pH ABG pCO2 ABG pO2 ABG HCO3 ABG O2 Saturation ABG Base Excess FiO2 Sodium Cancelled 145.5 H Potassium Cancelled 5.8 H D Chloride Cancelled 102 Carbon Dioxide Cancelled 42 H* Anion Gap Cancelled 2 L BUN Cancelled 38 H Creatinine Cancelled 0.82 Est GFR ( Amer) Cancelled > 60 Est GFR (Non-Af Amer) Cancelled Glucose Cancelled 199 H Calcium Cancelled 8.5 Magnesium Urine Color YELLOW Urine Appearance CLEAR Urine pH 6.0 Ur Specific [place] 1.025 Urine Protein NEGATIVE Urine Glucose (UA) NEGATIVE Urine Ketones NEGATIVE Urine Blood NEGATIVE Urine Nitrite NEGATIVE Ur Leukocyte Esterase NEGATIVE Urine WBC (Auto) 1 Urine RBC (Auto) 1 01/05/20 12:28 Throat Throat Culture - Final NORMAL DERRICK 12/25/19 15:34 Troponin I < 0.012 Impressions: PICC Line Insertion 12/31/19 00:00 IMPRESSION: SUCCESSFUL PLACEMENT OF A 5 FR DUAL LUMEN 43 CM PICC IN THE RIGHT BRACHIOCEPHALIC VEIN. Chest X-Ray 01/08/20 00:00 IMPRESSION: Tubes and lines in good positioning. No pneumothorax Partial clearing of diffuse bilateral infiltrates compared to 01/01/2020 All labs, radiographs, diagnostic studies and EKGs were personally reviewed: Yes In addition, reports of radiographic and diagnostic studies were read: Yes Assessment and Plan - Diagnosis (1) Acute respiratory failure with hypoxemia Is this a current diagnosis for this admission?: Yes Plan: * Maintain FiO2 100%. Wean PEEP as tolerated. * Titrate ventilator settings based on ABG results. * Left chest tube removed 01/05/2020. Right chest tube placed 01/06/2020. * Furosemide 40 mg IV single dose today for hyperkalemia. (2) Hyperglycemia due to type 2 diabetes mellitus Qualifiers: Diabetes mellitus terminal makeup operator insulin use: with terminal makeup operator use Qualified Code(s): E11.65 - Type 2 diabetes mellitus with hyperglycemia; Z79.4 - terminal press operator (current) use of insulin Is this a current diagnosis for this admission?: Yes Plan: * Lantus 45 units subcutaneously every 12 hours. * Sliding scale insulin. (3) Hyperkalemia Is this a current diagnosis for this admission?: Yes Plan: * Recheck K, Mg. This may be experienced result. * As we will be discontinuing his continuous insulin infusion, I will give the patient a single dose of furosemide 40 mg IV for potassium 5.8. * Kayexalate 30 g single dose (4) Malnutrition Qualifiers: Malnutrition type: unspecified type Qualified Code(s): E46 - Unspecified protein-calorie malnutrition Is this a current diagnosis for this admission?: Yes (5) Morbid obesity Is this a current diagnosis for this admission?: Yes (6) Pneumonia due to COVID-19 virus Is this a current diagnosis for this admission?: Yes (7) Pneumothorax Qualifiers: Pneumothorax type: spontaneous, primary Qualified Code(s): J93.11 - Primary spontaneous pneumothorax Is this a current diagnosis for this admission?: Yes Plan: Right chest tube placed 01/06/[address] Ramos. Help appreciated. Critical Time Critical Time (minutes): 60 Level of Care: ICU -: 1. The care of a critical patient is a dynamic process. This note is a insurance verification representative synopsis but static in nature. The timeframe for treatments given in order is not necessarily the actual time these treatments may have been done. 2. This patient requires critical care secondary to ongoing requirements for therapy not offered or safe outside the critical care environment. Transfer to a lower level of care will result in altered life or limb morbidity and mortality. 3. Multidisciplinary rounds completed. 4. ABCDE bundle addressed.
[2020-01-09] MEDS: ASPIRIN 81 MG TABLET, CHEWABLE NG SCH ×2 (00:27→22:13)
[2020-01-09] MEDS: INSULIN GLARGINE,HUM.REC.ANLOG 1,000 UNIT/10 ML VIAL SUBCUT SCH ×3 (00:27→22:13)
[2020-01-09] MEDS: DEXAMETHASONE SOD PHOS INJ 10 MG/1 ML VIAL IV SCH ×3 (00:28→22:13)
[2020-01-09] MEDS: INSULIN REG, HUMAN 100 UNIT/ML 3 ML VIAL (PYX) SUBCUT SCH ×4 (00:31→17:34)
[2020-01-09] MEDS: ALBUTEROL SULFATE 0.083% NEB 2.5 MG/3 ML AMPUL NEB SCH ×4 (01:53→20:10)
[2020-01-09] MEDS ORDERED: ALTEPLASE INJ 2 MG VIAL (CATH CLEARANCE) IV ONE (03:43)
[2020-01-09] MEDS: MIDAZOLAM HCL 50 MG/100 ML RTUINJ IV PRN ×4 (05:25→22:12)
[2020-01-09] MEDS: NORMAL SALINE 500 ML with ROCURONIUM BROMIDE 500 MG IV PRN ×6 (05:51→19:00)
[2020-01-09] MEDS: BUDESONIDE NEB 0.25 MG/2 ML AMPUL NEB SCH ×2 (08:52→20:10)
--- NOTE | 2020-01-09 09:43 | RADIOLOGY REPORT (SQ) ---
EXAM DESCRIPTION: CHEST SINGLE VIEW IMAGES COMPLETED DATE/TIME: 01/09/2020 5:30 am REASON FOR STUDY: ETT tube COMPARISON: 01/08/2020 EXAM PARAMETERS: NUMBER OF VIEWS: One view. TECHNIQUE: Single frontal radiographic view of the chest acquired. RADIATION DOSE: NA LIMITATIONS: None. FINDINGS: LUNGS AND PLEURA: Parenchymal opacities left greater than right without improvement MEDIASTINUM AND HILAR STRUCTURES: No masses. Contour normal. HEART AND VASCULAR STRUCTURES: Heart normal in size. Normal vasculature. BONES: No acute findings. HARDWARE: Tracheostomy tube. Nasogastric tube. Right chest tube. All stable. PICC catheter is ret racted and now coiled in the subclavian vein on the right. OTHER: No other significant finding. IMPRESSION: No improvement in aeration of the lungs. Diffuse opacities left greater than right. PICC catheter is retracted. There is coiling and the tip is now in the right subclavian vein. COMMENT: The findings were sent to the Radiology Results Communication Center at 09:37 on 0 to be communicated to a licensed caregiver. TECHNICAL DOCUMENTATION: JOB ID: [id number] 2010 [employer]- All Rights Reserved Reading location - IP/workstation name: [email or web address]
[2020-01-09 09:46] LABS: ARTERIAL BLOOD BASE EXCESS 10.8 mmol/L; ARTERIAL BLOOD H2CO3 2.19 mmol/L (1.05-1.35); ARTERIAL BLOOD HCO3 39.8 mmol/L (20-24); ARTERIAL BLOOD O2 SATURATION 85.1 % (94-98); ARTERIAL BLOOD PH 7.36 (7.35-7.45); ARTERIAL BLOOD PO2 53.8 mmHg (80-100)
[2020-01-09 09:47] LABS: ARTERIAL BLOOD FIO2 98%
[2020-01-09 09:48] LABS: ARTERIAL BLOOD PCO2 72.9 mmHg (35-45)
--- NOTE | 2020-01-09 10:16 | RADIOLOGY REPORT (SQ) ---
EXAM DESCRIPTION: CHEST SINGLE VIEW IMAGES COMPLETED DATE/TIME: 01/09/2020 9:49 am REASON FOR STUDY: central line placement COMPARISON: 01/09/2020 0515 hours EXAM PARAMETERS: NUMBER OF VIEWS: One view TECHNIQUE: Single frontal radiograph of the chest. RADIATION DOSE: N/A LIMITATIONS: None. FINDINGS: TEMPORARY SUPPORT DEVICES:ETT in expected location. NG tube courses below the christianne-diaphr agm in to the stomach. Central venous access catheter tip is in expected location. Left subclavian a pproach Right-sided PICC catheter has been removed. LUNGS AND PLEURA: Stable opacities. No effusions. No masses. No pneumothorax. MEDIASTINUM AND HILAR STRUCTURES: No masses. Contour normal. HEART AND VASCULAR STRUCTURES: Heart normal in size. normal vascularity. Aorta normal for age. BONES: No acute findings. OTHER: No other significant finding. IMPRESSION: Stable radiographic appearance of the chest without improvement. SUPPORT DEVICE(S) IN EXPECTED LOCATIONS. TECHNICAL DOCUMENTATION: JOB ID: [id number] 2010 [employer]- All Rights Reserved Reading location - IP/workstation name: [email or web address]
[2020-01-09] MEDS ORDERED: FUROSEMIDE INJ/PF 40 MG/4 ML SDV IV ONE (10:45)
[2020-01-09] MEDS: ASCORBIC ACID 500 MG TABLET NG SCH ×2 (10:50→17:32)
[2020-01-09] MEDS: ZINC SULFATE 220 MG CAPSULE NG SCH (10:50)
[2020-01-09] MEDS: CHOLECALCIFEROL (D3) 1,000 UNIT (25 MCG) TABLET NG SCH (10:50)
[2020-01-09] MEDS: SENNOSIDES/DOCUSATE 8.6-50 MG 1 EACH TABLET NG SCH ×3 (10:50→17:32)
[2020-01-09] MEDS: PANTOPRAZOLE SODIUM 40 MG VIAL IV SCH (10:51)
[2020-01-09 11:28] LABS: HEMATOCRIT 31.7 % (37.9-51.0); HEMOGLOBIN 9.8 g/dL (13.5-17.0); MEAN CORPUSCULAR HEMOGLOBIN 24.9 pg (27.0-33.4); MEAN CORPUSCULAR VOLUME 80 fl (80-97); PLATELET COUNT 172 10^3/uL (150-450); RED BLOOD COUNT 3.95 10^6/uL (4.35-5.55); RED CELL DISTRIBUTION WIDTH 14.5 % (11.5-14.0); WHITE BLOOD COUNT 19.8 10^3/uL (4.0-10.5)
[2020-01-09 11:52] LABS: BLOOD UREA NITROGEN 39 mg/dL (7-20); CALCIUM 8.4 mg/dL (8.4-10.2); CHLORIDE 101 mmol/L (98-107); GLUCOSE 154 mg/dL (75-110); PHOSPHORUS 4.7 mg/dL (2.5-4.5); POTASSIUM 4.9 mmol/L (3.6-5.0)
[2020-01-09] MEDS: SILDENAFIL CITRATE 20 MG TABLET NG SCH ×2 (12:03→12:07)
[2020-01-09 12:08] LABS: ABSOLUTE LYMPHOCYTES# (MANUAL) 0.6 10^3/uL (0.5-4.7); BAND NEUTROPHILS % (MANUAL) 2 % (3-5); BASOPHILS % (MANUAL) 0 % (0-2); EOSINOPHILS % (MANUAL) 0 % (0-6); LYMPHOCYTES % (MANUAL) 3 % (13-45); METAMYELOCYTES % (MANUAL) 1 % (0-1); MONOCYTES % (MANUAL) 5 % (3-13); NUCLEATED RED BLOOD CELLS 1 /100 WBC (0); SEGMENTED NEUTROPHILS % (MAN) 89 % (42-78); TOTAL CELLS COUNTED 100
[2020-01-09 12:10] LABS: ANISOCYTOSIS SLIGHT; HYPOCHROMASIA SLIGHT; PLATELET COMMENT ADEQUATE
[2020-01-09 12:20] LABS: ANION GAP 5 (5-19)
[2020-01-09 12:21] LABS: CARBON DIOXIDE 43 mmol/L (22-30)
--- NOTE | 2020-01-09 17:59 | PDOC CRITICAL CARE PROG REPORT ---
General Date:: 01/09/20 ICU Day:: 9 Ventilator Day:: 9 Hospital Day:: 16 Resuscitation Status: Full Code Events in the past 12 to 24 Hours:: This 54-year-old -Citizen Of [place] male was hospitalized on 12/25/2027 with COVID- 19 pneumonia. He was admitted to the hospitalist service but deteriorated to the point of being BiPAP dependent. Despite BiPAP support, the patient became progressively more hypoxemic, more dyspneic and was transferred to the ICU for endotracheal intubation and mechanical ventilatory support. At the time of attempted endotracheal intubation, the patient's oropharynx was found to be obstructed and was not amenable to safe endotracheal intubation. An emergency cricothyrotomy was performed by Dr. Taylor, allowing passage of an endotracheal tube, which was sutured in place. 01/03: Remains intubated severe via endotracheal tube through cricothyrotomy. Paralyzed, sedated. Case discussed with Dr. Taylor. Currently, on tube feeds (Glucerna). 01/04: Remains intubated. Endotracheal tube via cricothyrotomy. Paralyzed, sedated. Left chest tube in situ. No airleak. Has been placed under stress throughout the morning. Chest x-ray suggest that the chest tube is no longer intrathoracic in placement. Sodium still elevated, 155. He remains on high- dose Lantus along with continuous insulin infusion. Sugars have been stable, albeit with high insulin requirements. 01/05: Remains intubated. Endotracheal tube via cricothyrotomy. Paralyzed, sedated. Left chest tube was removed in the interim. No pneumothorax on chest x-ray. Plans for formalization of tracheostomy or discussed with Dr. Taylor. In short, we will prepare this patient for anticipated surgery tomorrow. Sodium 155-->147. Remains on high-dose Lantus along with continuous insulin infusion. Fingerstick glucose [id number] today. For nursing, no BM x5 days. 01/06: Patient had a sudden episode of oxygen desaturation yesterday while on mechanical ventilatory support. He remained hemodynamically stable. Chest x- ray revealed development of a right-sided pneumothorax. Chest tube was placed by Dr. Ramos in the interim with subsequent improvement in oxygenation. PO2 on ABG this a.m. was 78. He remains on PRVC 35/480/100/16. Anticipating formalization of tracheostomy later today. Of note, the patient has been on high-dose Lantus (45 units subcutaneously every 12 hours) in addition to continuous insulin infusion. His tube feeds were discontinued in preparation for surgery, and the patient did have a brief hypoglycemic episode, which was easily corrected. Of note, K 5.8, Mg 3.5, creatinine 0.8 this AM. nurse this morning reports that despite rocuronium infusion, the patient is demonstrating 4 out of 4 on [id number]'s. It was noted that the rocuronium infusion is being administered through peripheral IV. Of note, locally, at the site of infusion, he is 0 for monitoring of floors. 01/07: Patient underwent formalization of tracheostomy yesterday. No significant complications. Only had oxygen desaturations down to 84% intraoperatively. Tolerating mechanical ventilatory support via tracheostomy. Still on FiO2 100%, PEEP 10. SPO2 100%. 01/08: Chest x-ray this morning shows that the PICC line has become malpositioned and has curled. Nurse reports difficulties with maintaining sedation and paralysis, raising question about the integrity of the PICC line. The patient is clearly demonstrating spontaneous respirations and is breathing over the ventilator set rate. Also, cough reflex is brisk. Still on mechanical ventilatory support. FiO2 100%, PEEP 10. Right chest tube still to wall suction with rumbling airleak. On Glucerna. Lantus was increased yesterday evening to 50 units subcutaneously every 12 hours with insulin sliding scale. Fingerstick glucose values over the past 24 hours: [id number]. Review of systems relevant to events:: Pulmonary, neurological Reason for ICU Addmission:: Intubation for Covid PNA. Now has trach, chest tube. - Medications: Medications reviewed and adjusted accordingly: Yes Sedation:: Versed/morphine/rocuronium Physical Exam Vital Signs: Temp Pulse Resp BP Pulse Ox 98.8 F 104 H 35 H 142/74 H 91 L 01/09/20 08:00 01/09/20 08:52 01/09/20 08:52 01/09/20 08:00 01/09/20 08:52 Intake & Output 01/08/20 01/09/20 01/10/20 06:59 06:59 06:59 Intake Total 908 1403 Output Total 2365 3590 125 Balance -1457 -2187 -125 Weight 142.7 kg 143.2 kg Weight/Height Weight 143.2 kg Height 1.83 m General appearance: PRESENT: no acute distress, morbidly obese, well-developed, well-nourished Head exam: PRESENT: atraumatic, normocephalic Eye exam: PRESENT: conjunctiva pink, EOMI, PERRLA. ABSENT: scleral icterus Respiratory exam: PRESENT: decreased breath sounds. ABSENT: rales, rhonchi, wheezes Cardiovascular exam: PRESENT: RRR. ABSENT: diastolic murmur, rubs, systolic murmur Pulses: PRESENT: normal dorsalis pedis pul GI/Abdominal exam: PRESENT: normal bowel sounds, soft. ABSENT: distended, guarding, mass, organolmegaly, rebound, tenderness Extremities exam: PRESENT: full ROM, pedal edema, +1 edema. ABSENT: calf tenderness, clubbing Musculoskeletal exam: PRESENT: normal inspection. ABSENT: deformity Neurological exam: PRESENT: altered, motor sensory deficit, other. ABSENT: reflexes normal Skin exam: PRESENT: dry, intact, warm, other - Skin tear at gluteal fold. ABSENT: cyanosis, rash Tubes/Lines: PRESENT: Endotracheal Tube, Chest Tube, Central Line - Right PICC line, Nasogastic Tube Laboratory/Radiographs Laboratory Results: 01/08/20 05:05 01/08/20 09:14 01/08/20 01/09/20 09:14 05:15 Carbonic Acid 2.19 H HCO3/H2CO3 Ratio 18:1 ABG pH 7.36 ABG pCO2 72.9 H* ABG pO2 53.8 L ABG HCO3 39.8 H ABG O2 Saturation 85.1 L ABG Base Excess 10.8 FiO2 98% Sodium 145.5 H Potassium 5.8 H D Chloride 102 Carbon Dioxide 42 H* Anion Gap 2 L BUN 38 H Creatinine 0.82 Est GFR ( Amer) > 60 Glucose 199 H Calcium 8.5 01/05/20 12:28 Throat Throat Culture - Final NORMAL DERRICK 12/25/19 15:34 Troponin I < 0.012 Impressions: PICC Line Insertion 12/31/19 00:00 IMPRESSION: SUCCESSFUL PLACEMENT OF A 5 FR DUAL LUMEN 43 CM PICC IN THE RIGHT BRACHIOCEPHALIC VEIN. Chest X-Ray 01/09/20 05:00 IMPRESSION: No improvement in aeration of the lungs. Diffuse opacities left greater than right. PICC catheter is retracted. There is coiling and the tip is now in the right subclavian vein. All labs, radiographs, diagnostic studies and EKGs were personally reviewed: Yes In addition, reports of radiographic and diagnostic studies were read: Yes Assessment and Plan - Diagnosis (1) Acute respiratory failure with hypoxemia Is this a current diagnosis for this admission?: Yes Plan: * Maintain FiO2 100%. Wean PEEP as tolerated. * Titrate ventilator settings based on ABG results. * Left chest tube removed 01/05/2020. * Right chest tube placed 01/06/2020. Place chest tube to waterseal. * Place left subclavian central venous catheter. Remove right PICC. Transduce CVP. * Furosemide 40 mg IV single dose today for hyperkalemia. (2) Hyperglycemia due to type 2 diabetes mellitus Qualifiers: Diabetes mellitus care home insulin use: with terminal make up operator use Qualified Code(s): E11.65 - Type 2 diabetes mellitus with hyperglycemia; Z79.4 - jail (current) use of insulin Is this a current diagnosis for this admission?: Yes Plan: * Decrease dexamethasone to 6 mg IV every 12 hours. * Lantus 50 units subcutaneously every 12 hours. With plan to decrease in dexamethasone dosing, I will not make any changes to Lantus dosing today. * Sliding scale insulin. (3) Hyperkalemia Is this a current diagnosis for this admission?: Yes Plan: * furosemide 40 mg IV single dose (4) Pneumothorax Qualifiers: Pneumothorax type: spontaneous, primary Qualified Code(s): J93.11 - Primary spontaneous pneumothorax Is this a current diagnosis for this admission?: Yes Plan: * Right chest tube placed 01/06/[address] Ramos. Help appreciated. * Chest tube to waterseal. (5) Malnutrition Qualifiers: Malnutrition type: unspecified type Qualified Code(s): E46 - Unspecified protein-calorie malnutrition Is this a current diagnosis for this admission?: Yes (6) Morbid obesity Is this a current diagnosis for this admission?: Yes (7) Pneumonia due to COVID-19 virus Is this a current diagnosis for this admission?: Yes Plan: * Received 1 unit of convalescent plasma. * Change famotidine to Protonix. Stop Pepcid. Critical Time Critical Time (minutes): 60 Level of Care: ICU -: 1. The care of a critical patient is a dynamic process. This note is a technical service representative synopsis but static in nature. The timeframe for treatments given in order is not necessarily the actual time these treatments may have been done. 2. This patient requires critical care secondary to ongoing requirements for therapy not offered or safe outside the critical care environment. Transfer to a lower level of care will result in altered life or limb morbidity and mortality. 3. Multidisciplinary rounds completed. 4. ABCDE bundle addressed.
[2020-01-09] MEDS: 1/2 NORMAL SALINE 1,000 ML IV PRN (19:00)
[2020-01-09 19:28] LABS: BLOOD UREA NITROGEN 42 mg/dL (7-20); CALCIUM 8.4 mg/dL (8.4-10.2); CHLORIDE 98 mmol/L (98-107); GLUCOSE 182 mg/dL (75-110); POTASSIUM 4.8 mmol/L (3.6-5.0)
[2020-01-09 19:42] LABS: ANION GAP 7 (5-19)
[2020-01-09 19:43] LABS: CARBON DIOXIDE 42 mmol/L (22-30)
[2020-01-10] MEDS: INSULIN REG, HUMAN 100 UNIT/ML 3 ML VIAL (PYX) SUBCUT SCH ×4 (00:37→19:22)
[2020-01-10] MEDS: NORMAL SALINE 500 ML with ROCURONIUM BROMIDE 500 MG IV PRN ×6 (02:00→18:00)
[2020-01-10] MEDS: ALBUTEROL SULFATE 0.083% NEB 2.5 MG/3 ML AMPUL NEB SCH ×4 (02:24→19:58)
[2020-01-10] MEDS: 1/2 NORMAL SALINE 1,000 ML IV PRN (03:54)
[2020-01-10] MEDS: MIDAZOLAM HCL 50 MG/100 ML RTUINJ IV PRN ×5 (03:55→23:06)
[2020-01-10 05:34] LABS: HEMATOCRIT 29.4 % (37.9-51.0); HEMOGLOBIN 9.1 g/dL (13.5-17.0); MEAN CORPUSCULAR HEMOGLOBIN 25.1 pg (27.0-33.4); MEAN CORPUSCULAR HGB CONC 30.9 g/dL (32.0-36.0); MEAN CORPUSCULAR VOLUME 81 fl (80-97); PLATELET COUNT 150 10^3/uL (150-450); RED BLOOD COUNT 3.63 10^6/uL (4.35-5.55); RED CELL DISTRIBUTION WIDTH 14.8 % (11.5-14.0); WHITE BLOOD COUNT 13.8 10^3/uL (4.0-10.5)
[2020-01-10 05:38] LABS: ARTERIAL BLOOD BASE EXCESS 11.7 mmol/L; ARTERIAL BLOOD HCO3 42.2 mmol/L (20-24); ARTERIAL BLOOD O2 SATURATION 81.4 % (94-98); ARTERIAL BLOOD PH 7.29 (7.35-7.45); ARTERIAL BLOOD PO2 53.1 mmHg (80-100)
[2020-01-10 05:41] LABS: ARTERIAL BLOOD FIO2 100%
[2020-01-10 05:42] LABS: ARTERIAL BLOOD PCO2 89.8 mmHg (35-45)
[2020-01-10 06:00] LABS: BLOOD UREA NITROGEN 40 mg/dL (7-20); CALCIUM 8.2 mg/dL (8.4-10.2); CHLORIDE 102 mmol/L (98-107); GLUCOSE 176 mg/dL (75-110); PHOSPHORUS 4.6 mg/dL (2.5-4.5); POTASSIUM 5.2 mmol/L (3.6-5.0)
[2020-01-10 06:07] LABS: ABSOLUTE LYMPHOCYTES# (MANUAL) 0.6 10^3/uL (0.5-4.7); ABSOLUTE MONOCYTES # (MANUAL) 0.7 10^3/uL (0.1-1.4); BAND NEUTROPHILS % (MANUAL) 1 % (3-5); BASOPHILS % (MANUAL) 0 % (0-2); EOSINOPHILS % (MANUAL) 0 % (0-6); LYMPHOCYTES % (MANUAL) 4 % (13-45); MONOCYTES % (MANUAL) 5 % (3-13); PLATELET COMMENT ADEQUATE; SEGMENTED NEUTROPHILS % (MAN) 90 % (42-78); TOTAL CELLS COUNTED 100
[2020-01-10 06:08] LABS: ANISOCYTOSIS SLIGHT; HYPOCHROMASIA SLIGHT
[2020-01-10 06:09] LABS: POLYCHROMASIA SLIGHT
[2020-01-10 06:11] LABS: OVALOCYTES SLIGHT; SCHISTOCYTES SLIGHT
[2020-01-10 06:15] LABS: ANION GAP 3 (5-19)
[2020-01-10] MEDS ORDERED: FUROSEMIDE INJ/PF 40 MG/4 ML SDV IV ONE ×2 (06:15→10:45)
[2020-01-10 06:16] LABS: CARBON DIOXIDE 43 mmol/L (22-30)
[2020-01-10] MEDS ORDERED: FUROSEMIDE INJ/PF 40 MG/4 ML SDV ONE (06:24)
[2020-01-10] MEDS: BUDESONIDE NEB 0.25 MG/2 ML AMPUL NEB SCH ×2 (07:45→19:59)
--- NOTE | 2020-01-10 08:51 | RADIOLOGY REPORT (SQ) ---
EXAM DESCRIPTION: CHEST SINGLE VIEW IMAGES COMPLETED DATE/TIME: 01/10/2020 5:52 am REASON FOR STUDY: ETT tube COMPARISON: 01/09/2020 EXAM PARAMETERS: NUMBER OF VIEWS: One view. TECHNIQUE: Single frontal radiographic view of the chest acquired. RADIATION DOSE: NA LIMITATIONS: None. FINDINGS: LUNGS AND PLEURA: Diffuse parenchymal opacities. No improvement. MEDIASTINUM AND HILAR STRUCTURES: No masses. Contour normal. HEART AND VASCULAR STRUCTURES: Heart normal in size. Normal vasculature. BONES: No acute findings. HARDWARE: Tracheostomy tube. Right chest tube. Nasogastric tube. Venous access catheter. OTHER: No other significant finding. IMPRESSION: Tracheostomy tube in expected location. Other support devices stable. No improvement in the lungs. TECHNICAL DOCUMENTATION: JOB ID: [id number] 2010 [employer]- All Rights Reserved Reading location - IP/workstation name: [email or web address]
[2020-01-10] MEDS: ASCORBIC ACID 500 MG TABLET NG SCH ×2 (09:07→19:22)
[2020-01-10] MEDS: PANTOPRAZOLE SODIUM 40 MG VIAL IV SCH (09:07)
[2020-01-10] MEDS: ZINC SULFATE 220 MG CAPSULE NG SCH (09:07)
[2020-01-10] MEDS: SENNOSIDES/DOCUSATE 8.6-50 MG 1 EACH TABLET NG SCH ×3 (09:08→19:22)
[2020-01-10] MEDS: DEXAMETHASONE SOD PHOS INJ 10 MG/1 ML VIAL IV SCH ×2 (09:08→22:58)
[2020-01-10] MEDS: CHOLECALCIFEROL (D3) 1,000 UNIT (25 MCG) TABLET NG SCH (09:08)
[2020-01-10] MEDS: INSULIN GLARGINE,HUM.REC.ANLOG 1,000 UNIT/10 ML VIAL SUBCUT SCH ×2 (09:11→22:55)
[2020-01-10 09:40] LABS: ARTERIAL BLOOD BASE EXCESS 15.5 mmol/L; ARTERIAL BLOOD FIO2 100%; ARTERIAL BLOOD H2CO3 2.51 mmol/L (1.05-1.35); ARTERIAL BLOOD HCO3 44.1 mmol/L (20-24); ARTERIAL BLOOD O2 SATURATION 84.2 % (94-98); ARTERIAL BLOOD PH 7.34 (7.35-7.45); ARTERIAL BLOOD PO2 54.1 mmHg (80-100); ARTERIAL BLOOD TOTAL CO2 46.7 mmol/L (23-27)
[2020-01-10 09:42] LABS: ARTERIAL BLOOD PCO2 83.5 mmHg (35-45)
--- NOTE | 2020-01-10 18:11 | PDOC CRITICAL CARE PROG REPORT ---
General Date:: 01/10/20 ICU Day:: 10 Ventilator Day:: 10 Hospital Day:: 10 Resuscitation Status: Full Code Events in the past 12 to 24 Hours:: This 54-year-old -[place] male was hospitalized on 12/25/2027 with COVID- 19 pneumonia. He was admitted to the hospitalist service but deteriorated to the point of being BiPAP dependent. Despite BiPAP support, the patient became progressively more hypoxemic, more dyspneic and was transferred to the ICU for endotracheal intubation and mechanical ventilatory support. At the time of attempted endotracheal intubation, the patient's oropharynx was found to be obstructed and was not amenable to safe endotracheal intubation. An emergency cricothyrotomy was performed by Dr. Taylor, allowing passage of an endotracheal tube, which was sutured in place. 01/03: Remains intubated severe via endotracheal tube through cricothyrotomy. Paralyzed, sedated. Case discussed with Dr. Taylor. Currently, on tube feeds (Glucerna). 01/04: Remains intubated. Endotracheal tube via cricothyrotomy. Paralyzed, sedated. Left chest tube in situ. No airleak. Has been placed under stress throughout the morning. Chest x-ray suggest that the chest tube is no longer intrathoracic in placement. Sodium still elevated, 155. He remains on high- dose Lantus along with continuous insulin infusion. Sugars have been stable, albeit with high insulin requirements. 01/05: Remains intubated. Endotracheal tube via cricothyrotomy. Paralyzed, sedated. Left chest tube was removed in the interim. No pneumothorax on chest x-ray. Plans for formalization of tracheostomy or discussed with Dr. Taylor. In short, we will prepare this patient for anticipated surgery tomorrow. Sodium 155-->147. Remains on high-dose Lantus along with continuous insulin infusion. Fingerstick glucose [id number] today. For nursing, no BM x5 days. 01/06: Patient had a sudden episode of oxygen desaturation yesterday while on mechanical ventilatory support. He remained hemodynamically stable. Chest x- ray revealed development of a right-sided pneumothorax. Chest tube was placed by Dr. Ramos in the interim with subsequent improvement in oxygenation. PO2 on ABG this a.m. was 78. He remains on PRVC 35/480/100/16. Anticipating formalization of tracheostomy later today. Of note, the patient has been on high-dose Lantus (45 units subcutaneously every 12 hours) in addition to continuous insulin infusion. His tube feeds were discontinued in preparation for surgery, and the patient did have a brief hypoglycemic episode, which was easily corrected. Of note, K 5.8, Mg 3.5, creatinine 0.8 this AM. nurse this morning reports that despite rocuronium infusion, the patient is demonstrating 4 out of 4 on [id number]'s. It was noted that the rocuronium infusion is being administered through peripheral IV. Of note, locally, at the site of infusion, he is 0 for monitoring of floors. 01/07: Patient underwent formalization of tracheostomy yesterday. No significant complications. Only had oxygen desaturations down to 84% intraoperatively. Tolerating mechanical ventilatory support via tracheostomy. Still on FiO2 100%, PEEP 10. SPO2 100%. 01/08: Chest x-ray this morning shows that the PICC line has become malpositioned and has curled. Nurse reports difficulties with maintaining sedation and paralysis, raising question about the integrity of the PICC line. The patient is clearly demonstrating spontaneous respirations and is breathing over the ventilator set rate. Also, cough reflex is brisk. Still on mechanical ventilatory support. FiO2 100%, PEEP 10. Right chest tube still to wall suction with rumbling airleak. On Glucerna. Lantus was increased yesterday dolores manisha to 50 units subcutaneously every 12 hours with insulin sliding scale. Fingerstick glucose values over the past 24 hours: [id number]. 01/09: Chest tube in situ for right pneumothorax. Was kept under waterseal overnight. After about 12 hours under waterseal, the patient started exhibit oxygen desaturation with subsequent hypotension. This was promptly resolved with reconnecting the [facility] chamber to wall suction. Indeed, chest x-ray this morning did confirm small pneumothorax. He remains sedated and paralyzed. Still on mechanical ventilatory support. Similar settings, but PEEP 8. On Glucerna. On Lantus 50 units subcutaneously every 12 hours with insulin sliding scale. Fingerstick glucose values over the past 24 hours: [id number]. Review of systems relevant to events:: Pulmonary, neurological Reason for ICU Addmission:: Intubation for Covid PNA. Now has trach, chest tube. - Medications: Medications reviewed and adjusted accordingly: Yes Sedation:: Versed/morphine/rocuronium Physical Exam Vital Signs: Temp Pulse Resp BP Pulse Ox 98.9 F 115 H 35 H 90/65 L 97 01/10/20 08:00 01/10/20 08:00 01/10/20 08:00 01/10/20 08:00 01/10/20 08:00 Intake & Output 01/09/20 01/10/20 01/11/20 06:59 06:59 06:59 Intake Total 1403 3296 100 Output Total 3590 2240 250 Balance -2187 1056 -150 Weight 143.2 kg 143.8 kg Weight/Height Weight 143.8 kg Height 1.83 m General appearance: PRESENT: no acute distress, morbidly obese, well-developed, well-nourished Head exam: PRESENT: atraumatic, normocephalic Eye exam: PRESENT: conjunctiva pink, EOMI, PERRLA. ABSENT: scleral icterus Respiratory exam: PRESENT: rales, rhonchi, symmetrical, tachypnea, unlabored. ABSENT: wheezes Cardiovascular exam: PRESENT: RRR. ABSENT: diastolic murmur, rubs, systolic murmur Pulses: PRESENT: normal dorsalis pedis pul GI/Abdominal exam: PRESENT: normal bowel sounds, soft. ABSENT: distended, guar ding, mass, organolmegaly, rebound, tenderness Gentrourinary exam: PRESENT: indwelling catheter Extremities exam: PRESENT: full ROM. ABSENT: calf tenderness, clubbing, pedal edema Musculoskeletal exam: PRESENT: normal inspection. ABSENT: deformity Neurological exam: PRESENT: altered, other - Sedated and paralyzed Skin exam: PRESENT: other - Skin area gluteal fold. Lower extremity pressure injury. Tubes/Lines: PRESENT: Endotracheal Tube, Chest Tube - Right, Central Line - Left IJ, Nasogastic Tube Laboratory/Radiographs Laboratory Results: 01/10/20 05:15 01/10/20 05:15 01/09/20 01/09/20 01/09/20 05:15 11:00 11:00 WBC 19.8 H RBC 3.95 L Hgb 9.8 L Hct 31.7 L MCV 80 MCH 24.9 L MCHC 31.0 L RDW 14.5 H Plt Count 172 Seg Neutrophils % Not Reportable Carbonic Acid 2.19 H HCO3/H2CO3 Ratio 18:1 ABG pH 7.36 ABG pCO2 72.9 H* ABG pO2 53.8 L ABG HCO3 39.8 H ABG O2 Saturation 85.1 L ABG Base Excess 10.8 FiO2 98% Sodium 149.2 H Potassium 4.9 Chloride 101 Carbon Dioxide 43 H* Anion Gap 5 BUN 39 H Creatinine 0.77 Est GFR ( Amer) > 60 Glucose 154 H Calcium 8.4 Phosphorus 4.7 H Magnesium 2.7 H 01/09/20 01/09/20 01/10/20 11:00 18:15 05:15 WBC RBC Hgb Hct MCV MCH MCHC RDW Plt Count Seg Neutrophils % Carbonic Acid 2.70 H HCO3/H2CO3 Ratio 15:1 ABG pH 7.29 L ABG pCO2 89.8 H* ABG pO2 53.1 L ABG HCO3 42.2 H ABG O2 Saturation 81.4 L ABG Base Excess 11.7 FiO2 100% Sodium 147.2 H Potassium 4.8 Chloride 98 Carbon Dioxide 42 H* Anion Gap 7 BUN 42 H Creatinine 0.89 Est GFR ( Amer) > 60 Glucose 182 H Calcium 8.4 Phosphorus Magnesium 2.7 H 2.6 H 01/10/20 01/10/20 01/10/20 05:15 05:15 09:32 WBC 13.8 H RBC 3.63 L Hgb 9.1 L Hct 29.4 L MCV 81 MCH 25.1 L MCHC 30.9 L RDW 14.8 H Plt Count 150 Seg Neutrophils % Not Reportable Carbonic Acid 2.51 H HCO3/H2CO3 Ratio 17:1 ABG pH 7.34 L ABG pCO2 83.5 H* ABG pO2 54.1 L ABG HCO3 44.1 H ABG O2 Saturation 84.2 L ABG Base Excess 15.5 FiO2 100% Sodium 147.6 H Potassium 5.2 H Chloride 102 Carbon Dioxide 43 H* Anion Gap 3 L BUN 40 H Creatinine 0.81 Est GFR ( Amer) > 60 Glucose 176 H Calcium 8.2 L Phosphorus 4.6 H Magnesium 2.8 H 01/05/20 18:35 Nasopharyngeal - Final 01/05/20 18:35 Nasopharyngeal - Final 12/25/19 01/09/20 01/10/20 15:34 11:00 05:15 Troponin I < 0.012 NT-Pro-B Natriuret Pep 173 H 208 H Impressions: PICC Line Insertion 12/31/19 00:00 IMPRESSION: SUCCESSFUL PLACEMENT OF A 5 FR DUAL LUMEN 43 CM PICC IN THE RIGHT BRACHIOCEPHALIC VEIN. Chest X-Ray 01/10/20 05:00 IMPRESSION: Tracheostomy tube in expected location. Other support devices stable. No improvement in the lungs. All labs, radiographs, diagnostic studies and EKGs were personally reviewed: Yes In addition, reports of radiographic and diagnostic studies were read: Yes Assessment and Plan - Diagnosis (1) Acute respiratory failure with hypoxemia Is this a current diagnosis for this admission?: Yes Plan: * With PEEP at 8. Wean FiO2 as tolerated. * Titrate ventilator settings based on ABG results. * Left chest tube removed 01/05/2020. * Right chest tube placed 01/06/2020. Maintain chest tube on suction. * Left IJ CVC (01/08). Transduce CVP. * Furosemide 40 mg IV single dose today for hyperkalemia. (2) Hyperglycemia due to type 2 diabetes mellitus Qualifiers: Diabetes mellitus [facility] insulin use: with intermission coordinator use Qualified Code(s): E11.65 - Type 2 diabetes mellitus with hyperglycemia; Z79.4 - intermodal dispatcher (current) use of insulin Is this a current diagnosis for this admission?: Yes Plan: * Continue dexamethasone to 6 mg IV every 12 hours. * Continue Lantus 50 units subcutaneously every 12 hours. * Sliding scale insulin. (3) Hyperkalemia Is this a current diagnosis for this admission?: Yes Plan: * furosemide 40 mg IV single dose (4) Pneumothorax Qualifiers: Pneumothorax type: spontaneous, primary Qualified Code(s): J93.11 - Primary spontaneous pneumothorax Is this a current diagnosis for this admission?: Yes Plan: * Right chest tube placed 01/06/[address] Ramos. Help appreciated. * Chest tube to wall suction. (5) Malnutrition Qualifiers: Malnutrition type: unspecified type Qualified Code(s): E46 - Unspecified protein-calorie malnutrition Is this a current diagnosis for this admission?: Yes (6) Morbid obesity Is this a current diagnosis for this admission?: Yes (7) Pneumonia due to COVID-19 virus Is this a current diagnosis for this admission?: Yes Plan: * Received 1 unit of convalescent plasma. * Change famotidine to Protonix. Stop Pepcid. * Continue dexamethasone. Critical Time Critical Time (minutes): 60 Level of Care: ICU -: 1. The care of a critical patient is a dynamic process. This note is a field support representative synopsis but static in nature. The timeframe for treatments given in order is not necessarily the actual time these treatments may have been done. 2. This patient requires critical care secondary to ongoing requirements for therapy not offered or safe outside the critical care environment. Transfer to a lower level of care will result in altered life or limb morbidity and mortality. 3. Multidisciplinary rounds completed. 4. ABCDE bundle addressed.
[2020-01-10] MEDS: ASPIRIN 81 MG TABLET, CHEWABLE NG SCH (22:58)
[2020-01-11] MEDS: INSULIN REG, HUMAN 100 UNIT/ML 3 ML VIAL (PYX) SUBCUT SCH ×4 (00:50→17:28)
[2020-01-11] MEDS: ALBUTEROL SULFATE 0.083% NEB 2.5 MG/3 ML AMPUL NEB SCH ×4 (01:15→19:55)
[2020-01-11] MEDS: NORMAL SALINE 500 ML with ROCURONIUM BROMIDE 500 MG IV PRN ×4 (03:31→17:27)
[2020-01-11] MEDS: MIDAZOLAM HCL 50 MG/100 ML RTUINJ IV PRN ×4 (03:33→21:56)
--- NOTE | 2020-01-11 04:17 | RADIOLOGY REPORT (SQ) ---
CLINICAL HISTORY: R pneumothorax COMPARISON: 01/10/2020. TECHNIQUE: XR CHEST 1 VIEW 01/10/2020 3:00 PM CDT FINDINGS: The heart is borderline in size. There is moderate airspace disease throughout the left lung as well as the right mid and lower lung. There is no pleural effusion. There is a tiny right apical pneumothorax. There are no acute osseous findings. Tracheostomy, NG tube and right chest tube and left central line are unchanged. IMPRESSION: No significant change.
[2020-01-11 07:07] LABS: HEMATOCRIT 28.8 % (37.9-51.0); HEMOGLOBIN 8.9 g/dL (13.5-17.0); MEAN CORPUSCULAR HEMOGLOBIN 25.1 pg (27.0-33.4); MEAN CORPUSCULAR HGB CONC 30.8 g/dL (32.0-36.0); MEAN CORPUSCULAR VOLUME 82 fl (80-97); PLATELET COUNT 142 10^3/uL (150-450); RED BLOOD COUNT 3.54 10^6/uL (4.35-5.55); RED CELL DISTRIBUTION WIDTH 14.9 % (11.5-14.0); WHITE BLOOD COUNT 16.6 10^3/uL (4.0-10.5)
[2020-01-11 07:08] LABS: ARTERIAL BLOOD BASE EXCESS 11.4 mmol/L; ARTERIAL BLOOD HCO3 40.9 mmol/L (20-24); ARTERIAL BLOOD O2 SATURATION 78.4 % (94-98); ARTERIAL BLOOD PH 7.35 (7.35-7.45); ARTERIAL BLOOD PO2 46.8 mmHg (80-100); ARTERIAL BLOOD TOTAL CO2 43.2 mmol/L (23-27)
[2020-01-11 07:12] LABS: ARTERIAL BLOOD FIO2 100%; ARTERIAL BLOOD PCO2 76.4 mmHg (35-45)
[2020-01-11 07:24] LABS: BLOOD UREA NITROGEN 43 mg/dL (7-20); CALCIUM 8.4 mg/dL (8.4-10.2); CHLORIDE 103 mmol/L (98-107); GLUCOSE 131 mg/dL (75-110); PHOSPHORUS 5.1 mg/dL (2.5-4.5); POTASSIUM 5.1 mmol/L (3.6-5.0)
[2020-01-11 07:31] LABS: PREALBUMIN 9.8 mg/dL (17.6-36.0)
[2020-01-11 07:33] LABS: ANION GAP 6 (5-19)
[2020-01-11 07:48] LABS: CARBON DIOXIDE 40 mmol/L (22-30)
[2020-01-11 07:58] LABS: ABSOLUTE LYMPHOCYTES# (MANUAL) 0.8 10^3/uL (0.5-4.7); ABSOLUTE MONOCYTES # (MANUAL) 0.5 10^3/uL (0.1-1.4); BASOPHILS % (MANUAL) 0 % (0-2); EOSINOPHILS % (MANUAL) 0 % (0-6); LYMPHOCYTES % (MANUAL) 5 % (13-45); MONOCYTES % (MANUAL) 3 % (3-13); NUCLEATED RED BLOOD CELLS 2 /100 WBC (0); SEGMENTED NEUTROPHILS % (MAN) 92 % (42-78); TOTAL CELLS COUNTED 100
[2020-01-11 07:59] LABS: ANISOCYTOSIS 1+; POIKILOCYTOSIS SLIGHT; POLYCHROMASIA 1+; TEAR DROP CELLS SLIGHT
[2020-01-11 08:00] LABS: PLATELET COMMENT DECREASED; SCHISTOCYTES SLIGHT
--- NOTE | 2020-01-11 08:13 | RADIOLOGY REPORT (SQ) ---
EXAM DESCRIPTION: CHEST SINGLE VIEW IMAGES COMPLETED DATE/TIME: 01/11/2020 5:30 am REASON FOR STUDY: ETT tube COMPARISON: 01/10/2020 NUMBER OF VIEWS: One view. TECHNIQUE: Single frontal radiographic image of the chest acquired. LIMITATIONS: None. FINDINGS: LUNGS AND PLEURA: Stable appearance. MEDIASTINUM AND HILAR STRUCTURES: Stable heart size and mediastinal structures. HEART AND VASCULAR STRUCTURES: Stable appearance. SUPPORT DEVICES: Appropriate location without change. BONES: No acute findings. OTHER: No other significant finding. IMPRESSION: STABLE APPEARANCE OF THE CHEST. SUPPORT DEVICES UNCHANGED. TECHNICAL DOCUMENTATION: JOB ID: [id number] 2010 [employer]- All Rights Reserved Reading location - IP/workstation name: [email or web address]
[2020-01-11] MEDS: BUDESONIDE NEB 0.25 MG/2 ML AMPUL NEB SCH ×2 (08:41→19:55)
--- NOTE | 2020-01-11 09:16 | PDOC CRITICAL CARE PROG REPORT ---
General Date:: 01/11/20 ICU Day:: 11 Ventilator Day:: 11 Hospital Day:: 17 Resuscitation Status: Full Code Events in the past 12 to 24 Hours:: Too deep on muscle relaxants. Not proned. Review of systems relevant to events:: Pulmonary, neurological. Reason for ICU Addmission:: Intubation for Covid PNA. Now has trach, chest tube. - Medications: Medications reviewed and adjusted accordingly: Yes Vasopressors:: None Sedation:: Propofol, versed. Physical Exam Vital Signs: Temp Pulse Resp BP Pulse Ox 98.0 F 100 35 H 119/70 91 L 01/11/20 08:00 01/11/20 08:41 01/11/20 08:41 01/11/20 08:06 01/11/20 08:41 Intake & Output 01/10/20 01/11/20 01/12/20 06:59 06:59 06:59 Intake Total 3296 2706 Output Total 2285 2260 100 Balance 1011 446 -100 Weight 143.8 kg 141.5 kg Weight/Height Weight 141.5 kg Height 6 ft General appearance: PRESENT: obese Head exam: PRESENT: atraumatic, normocephalic Eye exam: PRESENT: PERRLA Ear exam: PRESENT: normal external ear exam Mouth exam: PRESENT: moist, tongue midline Respiratory exam: PRESENT: crackles - Dry, symmetrical Cardiovascular exam: PRESENT: RRR, tachycardia. ABSENT: diastolic murmur, rubs, systolic murmur GI/Abdominal exam: PRESENT: normal bowel sounds, soft. ABSENT: distended, guarding, mass, organolmegaly, rebound, tenderness Rectal exam: PRESENT: deferred Gentrourinary exam: PRESENT: indwelling catheter Extremities exam: PRESENT: full ROM. ABSENT: calf tenderness, clubbing, pedal edema Musculoskeletal exam: PRESENT: normal inspection Neurological exam: PRESENT: other - On rocuronium and sedated. Skin exam: PRESENT: dry, intact, warm. ABSENT: cyanosis, rash Tubes/Lines: PRESENT: Endotracheal Tube, Chest Tube, Nasogastic Tube Laboratory/Radiographs Laboratory Results: 01/11/20 06:40 01/11/20 06:40 01/10/20 01/11/20 01/11/20 09:32 06:40 06:40 WBC RBC Hgb Hct MCV MCH MCHC RDW Plt Count Seg Neutrophils % Carbonic Acid 2.51 H 2.30 H HCO3/H2CO3 Ratio 17:1 17:1 ABG pH 7.34 L 7.35 ABG pCO2 83.5 H* 76.4 H* ABG pO2 54.1 L 46.8 L ABG HCO3 44.1 H 40.9 H ABG O2 Saturation 84.2 L 78.4 L ABG Base Excess 15.5 11.4 FiO2 100% 100% Sodium 148.8 H Potassium 5.1 H Chloride 103 Carbon Dioxide 40 H* Anion Gap 6 BUN 43 H Creatinine 0.84 Est GFR ( Amer) > 60 Glucose 131 H Calcium 8.4 Phosphorus 5.1 H Magnesium 2.9 H Prealbumin 9.8 L 01/11/20 06:40 WBC 16.6 H RBC 3.54 L Hgb 8.9 L Hct 28.8 L MCV 82 MCH 25.1 L MCHC 30.8 L RDW 14.9 H Plt Count 142 L Seg Neutrophils % Not Reportable Carbonic Acid HCO3/H2CO3 Ratio ABG pH ABG pCO2 ABG pO2 ABG HCO3 ABG O2 Saturation ABG Base Excess FiO2 Sodium Potassium Chloride Carbon Dioxide Anion Gap BUN Creatinine Est GFR ( Amer) Glucose Calcium Phosphorus Magnesium Prealbumin 12/25/19 01/09/20 01/10/20 15:34 11:00 05:15 Troponin I < 0.012 NT-Pro-B Natriuret Pep 173 H 208 H Impressions: PICC Line Insertion 12/31/19 00:00 IMPRESSION: SUCCESSFUL PLACEMENT OF A 5 FR DUAL LUMEN 43 CM PICC IN THE RIGHT BRACHIOCEPHALIC VEIN. Chest X-Ray 01/11/20 05:00 IMPRESSION: STABLE APPEARANCE OF THE CHEST. SUPPORT DEVICES UNCHANGED. All labs, radiographs, diagnostic studies and EKGs were personally reviewed: Yes In addition, reports of radiographic and diagnostic studies were read: Yes Assessment and Plan - Diagnosis (1) Acute respiratory failure with hypoxemia Is this a current diagnosis for this admission?: Yes Plan: Today's ABG shows a pO2 of 48 and O2 sats of 78%. However his pulse oximeter is reading 92-94%. He is on 100% FiO2. Unable to do much an vent. (2) Pneumonia due to COVID-19 virus Is this a current diagnosis for this admission?: Yes Plan: This is the main reason for his respiratory difficulty. He has not been retested again yet. (3) Tracheostomy in place Is this a current diagnosis for this admission?: Yes Plan: His tracheostomy has been replaced with a Shiley #8 (4) Hyperglycemia due to type 2 diabetes mellitus Qualifiers: Diabetes mellitus mcc insulin use: with intermodal customer service use Qualified Code(s): E11.65 - Type 2 diabetes mellitus with hyperglycemia; Z79.4 - manager intermediate (current) use of insulin Is this a current diagnosis for this admission?: Yes Plan: Resolved (5) Morbid obesity Is this a current diagnosis for this admission?: Yes Plan: A risk factor for Covid mortality. (6) Hypernatremia Is this a current diagnosis for this admission?: Yes Plan: Improved. Level down to 149. Plan Summary: This does not afford much room to wean vent today. Keep as is for now. Critical Time Critical Time (minutes): 35 Level of Care: ICU Anticipated discharge: SNF Anticipated DC Timeframe: Other -: 1. The care of a critical patient is a dynamic process. This note is a manufacturers representative synopsis but static in nature. The timeframe for treatments given in order is not necessarily the actual time these treatments may have been done. 2. This patient requires critical care secondary to ongoing requirements for therapy not offered or safe outside the critical care environment. Transfer to a lower level of care will result in altered life or limb morbidity and mortality. 3. Multidisciplinary rounds completed. 4. ABCDE bundle addressed.
[2020-01-11] MEDS: DEXAMETHASONE SOD PHOS INJ 10 MG/1 ML VIAL IV SCH ×2 (10:50→21:57)
[2020-01-11] MEDS: PANTOPRAZOLE SODIUM 40 MG VIAL IV SCH (10:50)
[2020-01-11] MEDS: INSULIN GLARGINE,HUM.REC.ANLOG 1,000 UNIT/10 ML VIAL SUBCUT SCH ×2 (10:51→21:56)
[2020-01-11] MEDS: SENNOSIDES/DOCUSATE 8.6-50 MG 1 EACH TABLET NG SCH ×3 (10:51→17:28)
[2020-01-11] MEDS: ZINC SULFATE 220 MG CAPSULE NG SCH (10:51)
[2020-01-11] MEDS: CHOLECALCIFEROL (D3) 1,000 UNIT (25 MCG) TABLET NG SCH (10:51)
[2020-01-11] MEDS: ASCORBIC ACID 500 MG TABLET NG SCH ×2 (10:51→17:28)
--- NOTE | 2020-01-11 11:03 | RADIOLOGY REPORT (SQ) ---
EXAM DESCRIPTION: CHEST SINGLE VIEW IMAGES COMPLETED DATE/TIME: 01/11/2020 10:52 am REASON FOR STUDY: R pneumothorax COMPARISON: Earlier the same day. NUMBER OF VIEWS: One view. TECHNIQUE: Single frontal radiographic image of the chest acquired. LIMITATIONS: None. FINDINGS: LUNGS AND PLEURA: Stable appearance. Very small right apical pneumothorax is present. La rge-bore right-sided chest tube remains in place. MEDIASTINUM AND HILAR STRUCTURES: Stable heart size and mediastinal structures. HEART AND VASCULAR STRUCTURES: Stable appearance. SUPPORT DEVICES: Appropriate location without change. BONES: No acute findings. OTHER: No other significant finding. IMPRESSION: No significant interval change. Small right apical pneumothorax. TECHNICAL DOCUMENTATION: JOB ID: [id number] 2010 [employer]- All Rights Reserved Reading location - IP/workstation name: [email or web address]
[2020-01-11] MEDS: ASPIRIN 81 MG TABLET, CHEWABLE NG SCH (21:56)
[2020-01-12] MEDS: INSULIN REG, HUMAN 100 UNIT/ML 3 ML VIAL (PYX) SUBCUT SCH ×4 (00:16→18:09)
[2020-01-12] MEDS: ALBUTEROL SULFATE 0.083% NEB 2.5 MG/3 ML AMPUL NEB SCH ×4 (03:16→20:07)
[2020-01-12 05:57] LABS: HEMATOCRIT 27.6 % (37.9-51.0); HEMOGLOBIN 8.7 g/dL (13.5-17.0); MEAN CORPUSCULAR HEMOGLOBIN 25.6 pg (27.0-33.4); MEAN CORPUSCULAR HGB CONC 31.6 g/dL (32.0-36.0); MEAN CORPUSCULAR VOLUME 81 fl (80-97); PLATELET COUNT 140 10^3/uL (150-450); RED CELL DISTRIBUTION WIDTH 14.9 % (11.5-14.0); WHITE BLOOD COUNT 14.8 10^3/uL (4.0-10.5)
[2020-01-12 06:21] LABS: BLOOD UREA NITROGEN 43 mg/dL (7-20); CALCIUM 8.1 mg/dL (8.4-10.2); CHLORIDE 107 mmol/L (98-107); GLUCOSE 91 mg/dL (75-110); POTASSIUM 5.2 mmol/L (3.6-5.0)
[2020-01-12 06:27] LABS: ANION GAP 5 (5-19); CARBON DIOXIDE 37 mmol/L (22-30)
[2020-01-12 06:41] LABS: ABSOLUTE LYMPHOCYTES# (MANUAL) 0.6 10^3/uL (0.5-4.7); ABSOLUTE MONOCYTES # (MANUAL) 0.6 10^3/uL (0.1-1.4); BASOPHILS % (MANUAL) 0 % (0-2); EOSINOPHILS % (MANUAL) 0 % (0-6); LYMPHOCYTES % (MANUAL) 4 % (13-45); MONOCYTES % (MANUAL) 4 % (3-13); SEGMENTED NEUTROPHILS % (MAN) 92 % (42-78); TOTAL CELLS COUNTED 100
[2020-01-12 06:43] LABS: ANISOCYTOSIS SLIGHT; POIKILOCYTOSIS SLIGHT; TOXIC GRANULATION SLIGHT
[2020-01-12 06:44] LABS: OVALOCYTES 1+; PLATELET COMMENT ADEQUATE
[2020-01-12] MEDS: NORMAL SALINE 500 ML with ROCURONIUM BROMIDE 500 MG IV PRN ×2 (07:32)
[2020-01-12] MEDS: BUDESONIDE NEB 0.25 MG/2 ML AMPUL NEB SCH ×2 (08:25→20:07)
--- NOTE | 2020-01-12 08:57 | PDOC CRITICAL CARE PROG REPORT ---
General Date:: 01/12/20 ICU Day:: 12 Ventilator Day:: 12 Hospital Day:: 18 Resuscitation Status: Full Code Events in the past 12 to 24 Hours:: Essentially no change Review of systems relevant to events:: Pulmonary, neurologic. Reason for ICU Addmission:: Intubation for Covid PNA. Now has trach, chest tube. - Medications: Medications reviewed and adjusted accordingly: Yes Vasopressors:: None Sedation:: Diprivan, versed. Physical Exam Vital Signs: Temp Pulse Resp BP Pulse Ox 99 F 87 35 H 130/71 H 92 01/12/20 04:00 01/12/20 08:25 01/12/20 08:25 01/12/20 07:57 01/12/20 08:25 Intake & Output 01/11/20 01/12/20 01/13/20 06:59 06:59 06:59 Intake Total 2706 1100 Output Total 2260 1615 150 Balance 446 -515 -150 Weight 141.5 kg 140.4 kg Weight/Height Weight 140.4 kg Height 6 ft General appearance: PRESENT: obese Head exam: PRESENT: atraumatic, normocephalic Eye exam: PRESENT: conjunctiva pink, EOMI, PERRLA. ABSENT: scleral icterus Ear exam: PRESENT: normal external ear exam Mouth exam: PRESENT: moist, tongue midline Neck exam: PRESENT: tracheostomy Respiratory exam: PRESENT: clear to auscultation onofre, symmetrical. ABSENT: rales, rhonchi, wheezes Cardiovascular exam: PRESENT: RRR. ABSENT: diastolic murmur, rubs, systolic murmur GI/Abdominal exam: PRESENT: normal bowel sounds, soft. ABSENT: distended, guarding, mass, organolmegaly, rebound, tenderness Rectal exam: PRESENT: deferred Gentrourinary exam: PRESENT: indwelling catheter Extremities exam: PRESENT: full ROM. ABSENT: calf tenderness, clubbing, pedal edema Musculoskeletal exam: PRESENT: normal inspection Neurological exam: PRESENT: other - Sedated. Skin exam: PRESENT: dry, intact, warm. ABSENT: cyanosis, rash Tubes/Lines: PRESENT: Endotracheal Tube, Chest Tube, Nasogastic Tube Laboratory/Radiographs Laboratory Results: 01/12/20 05:36 01/12/20 05:36 01/12/20 01/12/20 05:36 05:36 WBC 14.8 H RBC 3.40 L Hgb 8.7 L Hct 27.6 L MCV 81 MCH 25.6 L MCHC 31.6 L RDW 14.9 H Plt Count 140 L Seg Neutrophils % Not Reportable Sodium 148.8 H Potassium 5.2 H Chloride 107 Carbon Dioxide 37 H Anion Gap 5 BUN 43 H Creatinine 0.75 Est GFR ( Amer) > 60 Glucose 91 Calcium 8.1 L 12/25/19 01/09/20 01/10/20 15:34 11:00 05:15 Troponin I < 0.012 NT-Pro-B Natriuret Pep 173 H 208 H Impressions: PICC Line Insertion 12/31/19 00:00 IMPRESSION: SUCCESSFUL PLACEMENT OF A 5 FR DUAL LUMEN 43 CM PICC IN THE RIGHT BRACHIOCEPHALIC VEIN. Chest X-Ray 01/11/20 09:00 IMPRESSION: No significant interval change. Small right apical pneumothorax. All labs, radiographs, diagnostic studies and EKGs were personally reviewed: Yes In addition, reports of radiographic and diagnostic studies were read: Yes Assessment and Plan - Diagnosis (1) Acute respiratory failure with hypoxemia Is this a current diagnosis for this admission?: Yes Plan: Still on 90% FIO2. Not able to make strides on his vent. Will stop rocuronium now that his trach is secure. (2) Pneumonia due to COVID-19 virus Is this a current diagnosis for this admission?: Yes Plan: Still has a large O2 need. (3) Tracheostomy in place Is this a current diagnosis for this admission?: Yes Plan: Placed last week to a more stable trach site. (4) Hyperglycemia due to type 2 diabetes mellitus Qualifiers: Diabetes mellitus chcf insulin use: with chcf use Qualified Code(s): E11.65 - Type 2 diabetes mellitus with hyperglycemia; Z79.4 - senior living (current) use of insulin Is this a current diagnosis for this admission?: Yes Plan: Controlled (5) Morbid obesity Is this a current diagnosis for this admission?: Yes Plan: This is a risk factor for COVID mortality (6) Hypernatremia Is this a current diagnosis for this admission?: Yes Plan: Improved, down to 148. Plan Summary: Will stop rocuronium and may try to wean FIO2 if this goes well. Critical Time Critical Time (minutes): 35 Level of Care: ICU Anticipated discharge: SNF Anticipated DC Timeframe: Other -: 1. The care of a critical patient is a dynamic process. This note is a client service representative synopsis but static in nature. The timeframe for treatments given in order is not necessarily the actual time these treatments may have been done. 2. This patient requires critical care secondary to ongoing requirements for therapy not offered or safe outside the critical care environment. Transfer to a lower level of care will result in altered life or limb morbidity and mortality. 3. Multidisciplinary rounds completed. 4. ABCDE bundle addressed.
[2020-01-12] MEDS: MIDAZOLAM HCL 50 MG/100 ML RTUINJ IV PRN ×3 (09:57→22:03)
[2020-01-12] MEDS: INSULIN GLARGINE,HUM.REC.ANLOG 1,000 UNIT/10 ML VIAL SUBCUT SCH ×2 (13:07→22:02)
[2020-01-12] MEDS: CHOLECALCIFEROL (D3) 1,000 UNIT (25 MCG) TABLET NG SCH (13:08)
[2020-01-12] MEDS: PANTOPRAZOLE SODIUM 40 MG PACKET.DR NG SCH (13:08)
[2020-01-12] MEDS: ZINC SULFATE 220 MG CAPSULE NG SCH (13:08)
[2020-01-12] MEDS: SENNOSIDES/DOCUSATE 8.6-50 MG 1 EACH TABLET NG SCH ×3 (13:08→18:05)
[2020-01-12] MEDS: ASCORBIC ACID 500 MG TABLET NG SCH ×2 (13:08→18:05)
[2020-01-12] MEDS: DEXAMETHASONE SOD PHOS INJ 10 MG/1 ML VIAL IV SCH ×2 (13:10→22:02)
[2020-01-12] MEDS: PANTOPRAZOLE SODIUM 40 MG VIAL IV SCH (14:15)
[2020-01-12] MEDS: ASPIRIN 81 MG TABLET, CHEWABLE NG SCH (22:02)
[2020-01-13] MEDS: INSULIN REG, HUMAN 100 UNIT/ML 3 ML VIAL (PYX) SUBCUT SCH ×3 (01:36→12:27)
[2020-01-13] MEDS: ALBUTEROL SULFATE 0.083% NEB 2.5 MG/3 ML AMPUL NEB SCH ×4 (01:37→23:43)
[2020-01-13] MEDS: MIDAZOLAM HCL 50 MG/100 ML RTUINJ IV PRN (03:00)
[2020-01-13] MEDS: DEXTROSE 50%-WATER 25 GM/50 ML DISP.SYRIN IV PRN ×2 (06:18→12:24)
--- NOTE | 2020-01-13 08:32 | PDOC CRITICAL CARE PROG REPORT ---
General Date:: 01/13/20 ICU Day:: 12 Ventilator Day:: 12 Hospital Day:: 20 Resuscitation Status: Full Code Events in the past 12 to 24 Hours:: Still on high FIO2 and not responsive. Review of systems relevant to events:: Pulmonary, neurological Reason for ICU Addmission:: Intubation for Covid PNA. Now has trach, chest tube. - Medications: Medications reviewed and adjusted accordingly: Yes Vasopressors:: None Sedation:: Versed off. Physical Exam Vital Signs: Temp Pulse Resp BP Pulse Ox 98.7 F 68 35 H 124/65 96 01/13/20 04:00 01/13/20 06:00 01/13/20 06:07 01/13/20 06:07 01/13/20 06:07 Intake & Output 01/12/20 01/13/20 01/14/20 06:59 06:59 06:59 Intake Total 1100 843 Output Total 1615 2235 Balance -515 -1392 Weight 140.4 kg 144.4 kg Weight/Height Weight 144.4 kg Height 6 ft General appearance: PRESENT: obese Head exam: PRESENT: atraumatic, normocephalic Eye exam: PRESENT: conjunctiva pink, PERRLA. ABSENT: scleral icterus Ear exam: PRESENT: normal external ear exam Mouth exam: PRESENT: moist, tongue midline Neck exam: PRESENT: tracheostomy Respiratory exam: PRESENT: clear to auscultation onofre, other - Clear lungs today.. ABSENT: rales, rhonchi, wheezes Cardiovascular exam: PRESENT: RRR. ABSENT: diastolic murmur, rubs, systolic murmur GI/Abdominal exam: PRESENT: normal bowel sounds, soft. ABSENT: distended, guarding, mass, organolmegaly, rebound, tenderness Rectal exam: PRESENT: deferred Neurological exam: ABSENT: other - He is not responsive or moving. GCS 3 Skin exam: PRESENT: dry, intact, warm. ABSENT: cyanosis, rash Tubes/Lines: PRESENT: Other - Tracheotomy. Laboratory/Radiographs Laboratory Results: 01/12/20 05:36 01/12/20 05:36 12/25/19 01/09/20 01/10/20 15:34 11:00 05:15 Troponin I < 0.012 NT-Pro-B Natriuret Pep 173 H 208 H Impressions: PICC Line Insertion 12/31/19 00:00 IMPRESSION: SUCCESSFUL PLACEMENT OF A 5 FR DUAL LUMEN 43 CM PICC IN THE RIGHT BRACHIOCEPHALIC VEIN. Chest X-Ray 01/11/20 09:00 IMPRESSION: No significant interval change. Small right apical pneumothorax. All labs, radiographs, diagnostic studies and EKGs were personally reviewed: Yes In addition, reports of radiographic and diagnostic studies were read: Yes Assessment and Plan - Diagnosis (1) Acute respiratory failure with hypoxemia Is this a current diagnosis for this admission?: Yes Plan: Still needing 90-100% FIO2. No real change in several days although lung sounds are clearer (2) Pneumonia due to COVID-19 virus Is this a current diagnosis for this admission?: Yes Plan: I'm sure this is the cause of his acute illness. 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 (5) Morbid obesity Is this a current diagnosis for this admission?: Yes Plan: A risk factor for COVID mortality. (6) Hypernatremia Is this a current diagnosis for this admission?: Yes Plan: No change in level at 149. (7) Neurologic abnormality Is this a current diagnosis for this admission?: Yes Plan: Now that he is off rocuronium and sedation, his neurologic status is exhibiting what seems like a devastating hypoxic insult Plan Summary: Maintain for now on ventilator. If no neoro recovery will need to talk about lev el of aggressiveness Critical Time Critical Time (minutes): 35 Level of Care: ICU Anticipated discharge: SNF Anticipated DC Timeframe: Other -: 1. The care of a critical patient is a dynamic process. This note is a security systems sales representative synopsis but static in nature. The timeframe for treatments given in order is not necessarily the actual time these treatments may have been done. 2. This patient requires critical care secondary to ongoing requirements for therapy not offered or safe outside the critical care environment. Transfer to a lower level of care will result in altered life or limb morbidity and mortality. 3. Multidisciplinary rounds completed. 4. ABCDE bundle addressed.
[2020-01-13] MEDS: BUDESONIDE NEB 0.25 MG/2 ML AMPUL NEB SCH ×2 (08:55→23:43)
[2020-01-13] MEDS: ASCORBIC ACID 500 MG TABLET NG SCH (12:19)
[2020-01-13] MEDS: ZINC SULFATE 220 MG CAPSULE NG SCH (12:19)
[2020-01-13] MEDS: DEXAMETHASONE SOD PHOS INJ 10 MG/1 ML VIAL IV SCH (12:19)
[2020-01-13] MEDS: CHOLECALCIFEROL (D3) 1,000 UNIT (25 MCG) TABLET NG SCH (12:19)
[2020-01-13] MEDS: INSULIN GLARGINE,HUM.REC.ANLOG 1,000 UNIT/10 ML VIAL SUBCUT SCH (12:19)
[2020-01-13] MEDS: PANTOPRAZOLE SODIUM 40 MG PACKET.DR NG SCH (12:19)
[2020-01-13] MEDS: SENNOSIDES/DOCUSATE 8.6-50 MG 1 EACH TABLET NG SCH ×2 (12:19→14:58)
[2020-01-13] MEDS ORDERED: EPINEPHRINE INJ/PF 1 MG/1 ML AMPULE ONE (17:44)
--- NOTE | 2020-01-13 18:08 | Death Summary ---
Summary Date : 01/13/20 Time of :: 17:54 Autopsy: No Resuscitation Status: Full Code - Final Diagnosis (1) Acute respiratory failure with hypoxemia Is this a current diagnosis for this admission?: Yes (2) Pneumonia due to COVID-19 virus Is this a current diagnosis for this admission?: Yes (3) Tracheostomy in place Is this a current diagnosis for this admission?: Yes (4) Hyperglycemia due to type 2 diabetes mellitus Is this a current diagnosis for this admission?: Yes (5) Morbid obesity Is this a current diagnosis for this admission?: Yes (6) Hypernatremia Is this a current diagnosis for this admission?: Yes (7) Neurologic abnormality Is this a current diagnosis for this admission?: Yes Hospital Course:: This patient was admitted to the floor with COVID pneumonia. He was maintained on bipap but got progressively worse requiring an ICU transfer and intubation. The intubation was difficult and even anesthesia could not intubate. Dr. Taylor placed an emergency tracheotomy. The patient was maintained in the ICU and was never able to be weaned to an FIO2 below 80%. He kept dropping lower on his saturations despite a PEEP of 15 and 100% O2. He arrested in a PEA cardiac arrest that was no doubt precipitated by his unrelenting hypoxia. He at 17:57 on 01/13/20. His sister was notified and is coming in to see him.
[2020-01-13 19:26] VITALS: BP 114/68
[2020-01-13] MEDS ORDERED: EPINEPHRINE INJ 1 MG/10 ML DISP.SYRIN ONE (20:13)
== END 2020-01-13 17:57 | DRG 3 ==
LOC: ER 15:24 → EH 19:37 → 3W 22:57 → ICU 01-01 15:32
PROVIDERS: ADMIT Anesthesiology; ATTEND Anesthesiology
PROC: XW033E5 Introduction of Remdesivir Anti-infective into Peripheral Vein, Percutaneous Approach, New Technology Group 5 (ICD-10-PCS; 2019-12-26)
PROC: XW13325 Transfusion of Convalescent Plasma (Nonautologous) into Peripheral Vein, Percutaneous Approach, New Technology Group 5 (ICD-10-PCS; 2019-12-28)
PROC: 5A09457 Assistance with Respiratory Ventilation, 24-96 Consecutive Hours, Continuous Positive Airway Pressure (ICD-10-PCS; 2019-12-31)
PROC: 02HV33Z Insertion of Infusion Device into Superior Vena Cava, Percutaneous Approach (ICD-10-PCS; 2019-12-31)
PROC: 3E0436Z Introduction of Nutritional Substance into Central Vein, Percutaneous Approach (ICD-10-PCS; 2019-12-31)
PROC: 0BB10ZZ Excision of Trachea, Open Approach (ICD-10-PCS; 2020-01-01)
PROC: 0W9B30Z Drainage of Left Pleural Cavity with Drainage Device, Percutaneous Approach (ICD-10-PCS; 2020-01-01)
PROC: XW13325 Transfusion of Convalescent Plasma (Nonautologous) into Peripheral Vein, Percutaneous Approach, New Technology Group 5 (ICD-10-PCS; 2020-01-02)
PROC: 0W9930Z Drainage of Right Pleural Cavity with Drainage Device, Percutaneous Approach (ICD-10-PCS; 2020-01-06)
PROC: 0B110F4 Bypass Trachea to Cutaneous with Tracheostomy Device, Open Approach (ICD-10-PCS; principal; 2020-01-07)
PROC: 5A1955Z Respiratory Ventilation, Greater than 96 Consecutive Hours (ICD-10-PCS; 2020-01-07)
DX: U07.1 COVID-19 (principal); J96.01 Acute respiratory failure with hypoxia; J12.89 Other viral pneumonia; J93.0 Spontaneous tension pneumothorax; E87.0 Hyperosmolality and hypernatremia; Q89.8 Other specified congenital malformations; Z68.41 Body mass index [BMI] 40.0-44.9, adult; E46 Unspecified protein-calorie malnutrition; E11.65 Type 2 diabetes mellitus with hyperglycemia; E66.01 Morbid (severe) obesity due to excess calories; I25.2 Old myocardial infarction; I10 Essential (primary) hypertension; B95.62 Methicillin resistant Staphylococcus aureus infection as the cause of diseases classified elsewhere; R00.0 Tachycardia, unspecified; E11.40 Type 2 diabetes mellitus with diabetic neuropathy, unspecified; E87.5 Hyperkalemia; Z87.891 Personal history of nicotine dependence; Z79.899 Other long term (current) drug therapy; Z79.4 Long term (current) use of insulin
CPT/HCPCS: 00320; 36415; 36430; 36573; 36600; 71045; 80048; 80053; 81001; 82728; 82803; 82962; 83036; 83605; 83615; 83735; 83880; 83930; 84100; 84132; 84134; 84145; 84295; 84478; 84484; 85025; 85027; 85379; 85610; 85730; 86140; 86850; 86900; 86901; 87040; 87070; 87077; 87186; 87205; 87502; 87880; 92950; 93005; 93010; 94002; 94003; 94660; 96365; 96367; 96372; 96375; 99291; J0610; C9113; J0171; J0330; J0456; J0461; J0696; J1100; J1170; J1642; J1644; J1650; J1815; J1940; J2060; J2250; J2270; J2704; J2997; J3010; J3480; J3490; J7030; J7040; J7050; J7060; J7120; J7613; P9047; S0028